=== PATIENT | female | born 1960 | race Caucasian/White ===

== ENCOUNTER 2020-09-01 14:43 | Outpatient (REF) | payer OTHER, SELFPAY ==
--- NOTE | 2020-09-01 13:45 | PAPFT_PTH ---
PATIENT: Marisa Huerta LOC: [facility] U#:[id number] AGE/SX: 60/F ROOM: RE09/01/[address]: Steph Snow : 1960 BED: DIS: 09/01/2020 SPEC #: [id number] RECD: 09/01/20 17:30 STATUS: MARIAHRogelio REKarla #: [id number] TAYLOR: 09/01/20 13:[address]: Steph Snow DEPT: [facility] Cytology RECD BY: Earnestine Nice ENTERED: 09/01/20 17:30 SP TYPE: PAPFT OTHR DR: Unknown,Unknown Tissues: 1 - CX/ENDOCX FOR PAP SMEARS Procedures: PAP THIN PREP/UVM Screening HPV DNA PROBE Comments: [id number]
== END 2020-09-01 14:44 | disposition home or self-care (01) ==
LOC: LBN 14:43
PROVIDERS: Visit Provider Obstetrics & Gynecology Gynecology
DX: R10.31 Right lower quadrant pain (principal); Z12.4 Encounter for screening for malignant neoplasm of cervix; Z11.51 Encounter for screening for human papillomavirus (HPV)
CPT/HCPCS: 88142; 87086; 87624

== ENCOUNTER 2020-09-26 04:32 | Outpatient (CLI) | payer OTHER, SELFPAY ==
--- NOTE | 2020-09-26 15:38 | DI.MAMMO_ITS ---
Exam(s) MAMMO SCREENING EXAM: MAMMO SCREENING CLINICAL HISTORY: screening, z12.39 TECHNIQUE: Mammograms were interpreted according to the usual protocol including computer analysis w [employer] CAD system, tomosynthesis and C-view imaging. COMPARISON: 2012 and 2014 from [facility]. FINDINGS: The breasts are composed of heterogeneously dense fibroglandular densities, Breast Density category C . No suspicious masses or suspicious microcalcifications are seen. No skin thickening or abnormal axillary lymph nodes are seen. There has been no significant change from prior exams. IMPRESSION: BI-RADS Category 1, Negative mammogram. Yearly screening mammography is recommended. Breast Density Category C, heterogeneously Dense. The mammogram demonstrates the patient's breast tissue is dense. Dense breast tissue is very common a nd is not abnormal but dense breast tissue can make it harder to find cancer on a mammogram. Also, de nse breast tissue may increase breast cancer risk. This information about the result of the mammogram report was provided to the patient to raise their awareness. Use this report when you speak with the patient about their risks for breast cancer, which includes their family history. At that time, you may recommend additional screening tests (Ultrasound or MRI) as they might be useful based on their r isk. A negative radiographic report should not delay biopsy if a dominant or clinically suspicious mass is present. Up to ten percent of cancers are not identified on mammography. A negative report may reinforce clinical impression. Adenosis and dense breasts may obscure an underlying neoplasm. False positive reports average 6 to 10%.
== END 2020-09-26 04:52 ==
PROVIDERS: Visit Provider Obstetrics & Gynecology Gynecology
DX: Z12.31 Encounter for screening mammogram for malignant neoplasm of breast (principal)
CPT/HCPCS: 77063; 77067

== ENCOUNTER 2021-05-05 18:01 | Outpatient (REF) | payer BC, SELFPAY | END 2021-05-05 18:02 | disposition home or self-care (01) | LOC: LBN 18:01 | PROVIDERS: Visit Provider Obstetrics & Gynecology | DX: R30.0 Dysuria (principal) | CPT/HCPCS: 87086 ==

== ENCOUNTER 2021-11-02 18:00 | Outpatient (REF) | payer BC, SELFPAY ==
[2021-11-02 19:19] LABS: Bacteria Few HPF (Negative); C & S Indicated? C&S Done As Ordered; Crystals Negative HPF (Negative); Epithelial Cells Few HPF (Negative); Mucus Negative (Negative); Other Cells Few Transitional (Negative); WBC >50 HPF (0-5)
== END 2021-11-02 18:01 | disposition home or self-care (01) ==
LOC: LBN 18:00
PROVIDERS: Visit Provider Physician Assistant Medical
DX: R30.9 Painful micturition, unspecified (principal)
CPT/HCPCS: 87077; 81015; 87086; 87186

== ENCOUNTER 2021-11-13 15:48 | Outpatient (REF) | payer BC, SELFPAY | END 2021-11-13 15:49 | disposition home or self-care (01) | LOC: LBN 15:48 | PROVIDERS: Visit Provider Obstetrics & Gynecology Gynecology | DX: R30.0 Dysuria (principal) | CPT/HCPCS: 87086 ==

== ENCOUNTER 2022-02-23 02:06 | Outpatient (CLI) | payer BC, SELFPAY ==
--- NOTE | 2022-02-23 07:45 | DI.MAMMO_ITS ---
Exam(s) MAMMO SCREENING EXAM: MAMMO SCREENING CLINICAL HISTORY: screening,z12.39. TECHNIQUE: Bilateral full field digital CC and MLO mammographic images were obtained with 3D tomosyn thesis and utilizing computer aided detection (CAD). COMPARISON: Prior mammograms were reviewed. FINDINGS: There has been no significant change in the appearance and distribution of the fibroglandular tissue. Asymmetric tissue in left breast is unchanged from prior studies. There are no new spiculated masses nor malignant appearing microcalcification groups. There is no significant architectural distortion nor skin thickening-retraction. IMPRESSION: No radiographic evidence of malignancy. BI-RADS Category 1 - Negative Breast Density - Category C - Heterogeneously dense Breast density Category C or D implies that the patient has dense breast tissue. Dense breast tissue can make it harder to find cancer on a mammogram. Dense breast tissue is also associated with an incr eased risk of breast cancer. This information about the result of the mammogram report was provided to the patient to raise their awareness. Use this report when you speak with the patient about their risks for breast cancer, which includes their family history. At that time, you may recommend additional screening tests (Ultrasoun d or MRI) as these tests may add significant information. A negative radiographic report should not delay biopsy if a dominant or clinically suspicious mass is present. Up to ten percent of cancers are not identified on mammography. A negative report may reinforce clinical impression. Adenosis and dense breasts may obscure an underlying neoplasm. False positive reports average 6 to 10%. Patient will receive a letter notifying them of these results.
== END 2022-02-23 02:26 ==
PROVIDERS: Visit Provider Obstetrics & Gynecology Gynecology
DX: Z12.31 Encounter for screening mammogram for malignant neoplasm of breast (principal); R92.8 Other abnormal and inconclusive findings on diagnostic imaging of breast
CPT/HCPCS: 77063; 77067

== ENCOUNTER 2022-12-01 02:23 | Outpatient (CLI) | payer BC, SELFPAY ==
[2022-12-01 09:33] LABS: Abs Immature Grans 0.03 10^3/uL (0.0-0.06); Absolute Eosinophil Count 0.06 10^3/uL (0.0-0.7); Absolute Lymphocyte Count 1.88 10^3/uL (1.2-3.4); Absolute Monocyte Count 0.53 10^3/uL (0.1-0.8); Absolute Neutrophil Count 4.37 10^3/uL (1.2-6.7); Basophils % 1.4; Eosinophils % 0.9; HCT 41.5 % (36.0-46.0); HGB 14.1 g/dL (11.2-15.7); Immature Grans % 0.4; MCH 31.5 pg (27.0-33.0); MCV 93 fL (80-95); MPV 9.7 fL (8.0-11.0); Monocytes % 7.6; Neutrophils % 62.7; Platelet Count 246 10^3/uL (130-400); RBC 4.47 10^6/uL (3.93-5.22); RDW 11.9 % (11.7-14.6); RDW-SD 40.8 fL; WBC 6.97 10^3/uL (4.4-10.8)
[2022-12-01 10:18] LABS: ALT 31 U/L (14-59); AST 19 U/L (15-37); Albumin 4.1 g/dL (3.4-5.0); Alkaline Phosphatase 91 U/L (46-116); Anion Gap 6.9 mmol/L (3-11); BUN 16 mg/dL (7-18); Bilirubin, Total 0.4 mg/dL (0.2-1.0); CO2 30.1 mmol/L (21.0-32.0); CREATININE 0.8 mg/dL (0.55-1.02); Calcium 9.7 mg/dL (8.5-10.1); Calculated LDL 102 mg/dL (<100); Chloride 104 mmol/L (98-107); Cholesterol 182 mg/dL (<200); Glucose 118 mg/dL (74-106); HDL Cholesterol 70 mg/dL (40-60); Potassium 3.7 mmol/L (3.5-5.1); Sodium 141 mmol/L (136-145); Total Protein 7.5 g/dL (6.4-8.2); Triglyceride 53 mg/dL (<150); Vitamin B12 313 pg/mL (193-986)
[2022-12-05 01:26] LABS: Lab Add On Test DONE
[2022-12-05 01:38] LABS: Hemoglobin A1C 5.3 % (<5.7)
== END 2022-12-01 02:24 | disposition home or self-care (01) ==
LOC: LBO 02:23
PROVIDERS: Student in an Organized Health Care Education/Training Program; Absent Provider Nurse Practitioner; PCP Nurse Practitioner; Referring Provider Nurse Practitioner; Visit Provider Nurse Practitioner
DX: R79.9 Abnormal finding of blood chemistry, unspecified (principal); Z13.220 Encounter for screening for lipoid disorders; E53.8 Deficiency of other specified B group vitamins; R73.09 Other abnormal glucose
CPT/HCPCS: 36415; 80053; 80061; 82607; 83036; 84443; 85025

== ENCOUNTER → 2022-12-14 07:26 | Outpatient (CLI) | payer BC, SELFPAY ==
--- NOTE | 2022-12-14 08:30 | DI.US_ITS ---
APPROVED REPORT EXAM: Comprehensive 2D, Doppler, and color-flow Echocardiogram Patient Location: Out-Patient Hydrotechnical Specialist: Juan Jeffers RDCS (AE) Indications: sharp CP intermittently Conclusion Normal left ventricular wall thickness and chamber size. Ejection fraction is 60 to 65%. Wall motio n is normal Normal right ventricular size and systolic function Both atria are normal in size There is no structural or hemodynamically significant valvular disease Wall motion Left Ventricle The left ventricle is normal size. Left ventricular systolic function is normal. The left ventricular ejection fraction is within the normal range. There is normal left ventricular wall thickness. There is normal LV segmental wall motion. There is no ventricular septal defect visualized. LVEF is 60-65% . Right Ventricle The right ventricle is normal size. The right ventricular systolic function is normal. The RVSP is 25 .1 mmHg. Atria The left atrium size is normal. The right atrium size is normal. Aortic Valve The aortic valve is normal in structure. Aortic valve is trileaflet. There is no aortic valvular sten osis. No aortic regurgitation is present. Mitral Valve The mitral valve is normal in structure. No evidence of mitral valve stenosis. There is no mitral kevin ve regurgitation noted. Tricuspid Valve The tricuspid valve is normal in structure. There is no tricuspid valve stenosis. There is no tricusp id valve regurgitation noted. Pulmonic Valve The pulmonary valve is normal in structure. There is no pulmonic valvular stenosis. There is no pulmo hank valvular regurgitation. Great Vessels The aortic root is normal in size. The ascending aorta is normal Aortic arch is normal in caliber. IV C is normal in size and collapses >50% with inspiration. Pericardium There is no pericardial effusion. 2D Dimensions IVSD d PLAX 0.93 cm F: 0.6-1.0 Ao Root d 3.14 cm F: 2.7 - 3.3 LVPW d PLAX 0.86 cm F: 0.6 - 1.0 Ao Asc Diam d 3.28 cm F: 2.3 - 3.1 LVID d PLAX 4.42 cm F: 3.8 - 5.2 LVDs 2.87 cm F: 2.2 - 3.5 LV EF Teichholz 64.5 % FS 35.03 % LV EDV (Teich) 88.5 mL LV ESV (Teich) 31.4 mL Stroke Vol Index (Teich) 35.02 M-Mode TAPSE 2.73 cm (M/F) >1.7 LV Volumes - Method of Disks (Schultz's) Single Plane 2D LV Volumes Biplane 2D LV Volumes LV EDV A4C 57.3 mL LV EDV BP 66.11 mL F: 46 - 106 LV ESV A4C 22.6 mL LV ESV BP 23.4 mL LVEF(%) A4C 60.6 % LVEF(%) BP 64.63 % F: 54 - 74 LV EDV A2C 66.0 mL LV EDV BP Index 40.55 mL/m2 F: 29 - 61 LV ESV A2C 23.6 mL SV BP LVEF(%) A2C 64.2 % SV Index LA Volume LA Length A4C 3.8 cm LA Length A2C LA Area A4C s 9.04 cm2 LA Area A2C s LA Vol A4C A-L 18.13 mL LA Vol A2C A-L LA Vol Biplane A-L LA Vol A4C MOD 17.2 mL LA Vol A2C MOD LA Vol BP MOD RA Volume RA Area A4C 6.3 cm2 RA ESV A4C (A-L) 10.9mL RA Vol/BSA A4C A-L RA Length A4C 3.1 cm RA ESV A4C (MOD) 10.5mL LV Diastology MV E' medial 0.105 (>0.07 m/s) MV E Vmax 0.87 (0.4-1.3 m/s) MV E/E' MED 8.28 (<14) MV A Vmax 0.90 (0.4-1.3 m/s) MV E' lateral 0.101 (>0.1 m/s) E/A Ratio 1.0 MV E/E' LAT 8.59 (<14) MV E' Average 0.103 m/s MV E/E'(average) 8.44 Aortic Valve AoV Vmax 1.56 m/s LVOT Vmax 1.22 m/s AoV Peak Grad 9.7 mmHg LVOT Peak Grad 5.9 mmHg AoV Area (Vmax) 2.36 cm2 LVOT VTI 0.250 m AoV VTI 0.339 m LVOT Mean Grad 3.3 mmHg AoV Mean William. 1.10 m/s LVOT SV 75.48 mL AoV Mean Grad 5.6 mmHg LVOT Diam s 1.95 cm AoV Area (VTI) 2.22 cm2 Velocity Ratio 0.78 Mitral Valve MV DT 213 (160-240 msec) Pulmonary Valve PV Vmax 1.26 (0.5-1.5 m/s) RVOT Vmax 0.97 m/s PV Peak Grad 6.4 mmHg RVOT Peak Gr. 3.7 mmHg PV Mean William 0.88 m/s RVOT VTI 0.197 m PV Mean Grad 3.5 mmHg RVOT Mean Gr. 1.6 mmHg Tricuspid Valve RA Pressure 3.00 mmHg TR Vmax 2.35 m/s TR Peak Grad 22.0 mmHg RVSP (TR) 25.1 mmHg
== END ==
PROVIDERS: PCP Nurse Practitioner; Visit Provider Nurse Practitioner
DX: R01.1 Cardiac murmur, unspecified (principal); R07.9 Chest pain, unspecified
CPT/HCPCS: 93306

== ENCOUNTER 2023-01-11 14:35 | Outpatient (CLI) | payer BC, SELFPAY ==
--- NOTE | 2023-01-11 14:30 | RT.EKG_ITS ---
APPROVED REPORT Exam: Resting ECG Reason for Exam: chest pain on left side Patient Location: O HR:52 bpm ECG Measurements Heart Rate 52 AXIS NM 156 P 36 QRSd 86 QRS 61 QT 444 T 59 QTc 413 Conclusion Sinus rhythm...normal P axis, V-rate 50- 99 Normal Electrocardiogram
== END 2023-01-11 14:36 | disposition home or self-care (01) ==
LOC: DI.KIM 14:35
PROVIDERS: PCP Nurse Practitioner; Visit Provider Nurse Practitioner
DX: R07.9 Chest pain, unspecified (principal)
CPT/HCPCS: 93010

== ENCOUNTER 2023-03-31 10:56 | Outpatient (RCR) | payer BC, SELFPAY ==
--- NOTE | 2023-03-31 11:00 | HOLTER_ITS ---
APPROVED REPORT Conclusion This is a 48-hour Holter monitor Rhythm throughout was sinus with an average heart rate 65. Minimum was 47, maximum 108 There were occasional ventricular ectopic beats There were very rare atrial premature beats There was no atrial fibrillation, no high-grade AV blocks, no pauses greater than 3 seconds Reported symptoms could not be reliably correlated to any dysrhythmia
== END 2023-04-21 23:59 | disposition home or self-care (01) ==
LOC: CARDOPNVT 10:56
PROVIDERS: PCP Nurse Practitioner; Visit Provider Internal Medicine Cardiovascular Disease
DX: R00.2 Palpitations (principal)
CPT/HCPCS: 93225; 93226

== ENCOUNTER 2023-05-05 08:18 | Emergency (ER) | payer BC, SELFPAY ==
[2023-05-05] MEDS: Ondansetron 4 MG/2 ML VIAL (09:20)
--- NOTE | 2023-05-05 09:30 | DI.RAD_ITS ---
Exam(s) XR CHEST 2V PA LATERAL EXAM: XR CHEST 2V PA LATERAL CLINICAL HISTORY: dizziness. TECHNIQUE: 2D digital imaging was performed. COMPARISON: No exams were available for comparison FINDINGS: 2 views: Heart size is normal. The mediastinum is not widened. Lungs are clear. No infiltrates nor pleural effusions. IMPRESSION: No acute pulmonary findings. DATA REPOSITORY: RADIATION DOSE DELIVERED:
--- NOTE | 2023-05-05 09:34 | ED.GENADUL_ITS ---
Discharge Plan Disposition Patient Disposition: Home Discharge Details Clinical Impression: Hypokalemia due to excessive gastrointestinal loss of potassium, Viral gastroenteritis Primary Care Provider: Brenda Estrada ED Provider: Leonora García Home Meds and New Rx's Prescriptions: No Action omeprazole 10 mg capsule,delayed release(DR/EC) 10 mg PO PRN naproxen 250 mg tablet 250 mg PO BID PRN estradiol 0.01 % (0.1 mg/gram) cream 1 g vaginal .COMPLEX Qty: 42.5 6RF Rx Instructions: 1 g vaginal daily for 2 weeks then twice weekly; clobetasol 0.05 % ointment 1 applic topical BID Qty: 45 6RF Rx Instructions: tiny amount to vulva twice daily x1 month,daily for 1 month then twice weekly metoprolol succinate 25 mg tablet extended release 24 hr 25 mg PO QPM Qty: 30 3RF Discharge Instructions Instructions: Hypokalemia (ED), Gastroenteritis (ED) Additional Instructions: Please stay well-hydrated, drinking plenty of electrolyte rich fluids. Your potassium was slightly low today, I encourage you to eat potassium rich foods such as bananas, oranges, and potatoes. Get plenty of rest. HPI General Date/Time Provider Initiated Documentation: 05/05/23 09:33 . HPI Narrative: Marisa is a 63 year old female who presents to the emergency dept today accompanied by her for evaluation of feeling unwell. She reports symptoms started yesterday morning with lightheadedness (described as dizziness, but no reported vertigo) accompanied by chills, congestion, sneezing, mild cough, and multiple episodes of vomiting/diarrhea. Some L sided abdominal pain yesterday. She reports she was unable to hold down PO yesterday, was unable to take her nightly metoprolol. She woke up at 1 am with a severe generalized headache accompanied by tingling on the L side of her body (which has since resolved). She asked her to bring her some Tylenol and was able to ambulate to the restroom; no unilateral weakness noted. Denies fever, vision changes, chest pain, shortness of breath, current abdominal pain, blood in stool or emesis, or change in urine output. She has been taking metoprolol qHS since Apr 12 for new diagnosis of HTN. No known HLD, diabetes, heart disease, or tobacco use. Related Data Home Medications Medication Instructions Recorded Confirmed omeprazole 10 mg capsule,delayed 10 mg PO PRN 11/13/21 05/05/23 release naproxen 250 mg tablet 250 mg PO BID PRN 01/11/23 05/05/23 clobetasol 0.05 % topical ointment 1 applic topical BID vulvar lichen 04/12/23 05/05/23 sclerosis #45 grams estradiol 0.01% (0.1 mg/gram) 1 g vaginal .COMPLEX #42.5 grams 04/12/23 05/05/23 vaginal cream metoprolol succinate 25 mg 25 mg PO QPM #30 tabs 04/12/23 05/05/23 tablet,extended release 24 hr Previous Rx's Medication Instructions Recorded clobetasol 0.05 % topical ointment 1 applic topical BID 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 #45 grams estradiol 0.01% (0.1 mg/gram) 1 g vaginal .COMPLEX #42.5 grams 04/12/23 vaginal cream metoprolol succinate 25 mg 25 mg PO QPM #30 tabs 04/12/23 tablet,extended release 24 hr Allergies Allergy/AdvReac Type Severity Reaction Status Date / Time metronidazole [From Metrogel] AdvReac Hives Verified 05/05/23 10:32 Review of Systems Narrative: see HPI Exam Const General: cooperative, comfortable and no acute distress Nutritional Appearance: average body habitus Orientation: alert and awake HENMT Head: normal to inspection Ears: hearing grossly normal bilaterally General nose exam: external nose normal Face and sinus: dry mucous membranes (mild) Mouth: tongue normal and oropharynx normal Throat: uvula midline Eyes General: appearance normal, both eyes and all related structures Eyelids: eyelids normal Pupils: PERRL EOM: EOM intact bilaterally Neck Neck: normal visual inspection and no lymphadenopathy Resp Effort & Inspection: normal respiratory effort and able to speak in complete sentences Auscultation: clear to auscultation bilaterally Cardio Rate: regular rate Rhythm: regular rhythm GI Inspection: normal to inspection, no abdominal wall ecchymosis and non-distended Palpation: soft and not rigid Auscultation: normal bowel sounds Neuro Cranial Nerves: CN's II-XI intact bilaterally Speech: speech normal Gait: normal gait Motor: muscle tone normal throughout and strength 5/5 throughout Medical Decision Making Marisa is a 63 year old female who presents to the emergency dept today accompanied by her for evaluation of feeling unwell. She reports symptoms started yesterday morning with lightheadedness (described as dizziness, but no reported vertigo) accompanied by chills, congestion, sneezing, mild cough, and multiple episodes of vomiting/diarrhea. Some L sided abdominal pain yesterday. She reports she was unable to hold down PO yesterday, was unable to take her nightly metoprolol. She woke up at 1 am with a severe generalized headache accompanied by tingling on the L side of her body (which has since resolved). She asked her to bring her some Tylenol and was able to ambulate to the restroom; no unilateral weakness noted. Denies fever, vision changes, chest pain, shortness of breath, current abdominal pain, blood in stool or emesis, or change in urine output. She has been taking metoprolol qHS since Apr 12 for new diagnosis of HTN. No known HLD, diabetes, heart disease, or tobacco use. Physical exam reassuring. Pt is alert and oriented. computer operator II-XII intact as tested. Tacky MM. PERRL, EOMs intact. No cervical lymphadenopathy. Easy work of breathing, lung sounds clear bilaterally. Normal heart sounds. Abdomen soft, nondistended, nontender to palpation with normoactive BS. Normal gait, some lightheadedness with standing. 5/5 muscle strength to upper and lower extremities bilaterally. D/dx includes but is not limited to: viral syndrome, dehydration, electrolyte imbalance, cardiac arrhythmia, intracranial hemorrhage less likely but of concern due to sudden onset of headache in age >55. I independently interpreted the following tests: EKG shows normal sinus rhythm, rate 55. PVC noted. No changes consistent with acute ischemia. CBC reassuring, only mild leukocytosis with slightly elevated white cell count 11.15. BMP reassuring, slightly elevated creatinine to BUN ratio with creatinine 0.91 and BUN 18. Potassium slightly low at 3.3. Serial troponins negative, less than 50. Flu/COVID/RSV all negative. Head CT reassuring, no acute findings noted by radiologist While in the emergency dept, Marisa received 1L IV Normal saline, 4 mg Zofran for nausea, and 25 mg metoprolol tartrate (substitute for PM metoprolol ER 25 mg, after discussion with Shire[facility] pharmacist). Her blood pressure decreased to 160s systolic after receiving metoprolol, with full resolution of nausea. Potassium p.o. given. Marisa has been able to ambulate throughout the department without difficulty, says she only has mild lightheadedness with standing. Workup today very reassuring. Likely etiology viral illness with resultant dehydration. Recommend good hydration at home, electrolytes, and advancing diet as tolerated. Reviewed red flags indicate need return to emergency care. Advise follow-up with PCP to discuss blood pressure. Imaging Data Radiologic Study: My impression: No obvious infiltrate or cardiomegaly Radiologist's impression: Exam(s) XR CHEST 2V PA LATERAL EXAM: XR CHEST 2V PA LATERAL CLINICAL HISTORY: dizziness. TECHNIQUE: 2D digital imaging was performed. COMPARISON: No exams were available for comparison FINDINGS: 2 views: Heart size is normal. The mediastinum is not widened. Lungs are clear. No infiltrates nor pleural effusions. IMPRESSION: No acute pulmonary findings. Radiologic Study #2: My impression: No acute intracranial hemorrhage noted Radiologist's impression: This report is currently processing and HAS NOT BEEN OFFICIALLY SIGNED BY THE PHYSICIAN - ESTIMATED TIME OF APPROVAL IS 05/05/2023 13:57. Exam(s) CT HEAD WO EXAM: CT HEAD WO CLINICAL HISTORY: dizziness, vomiting, headache. TECHNIQUE: Imaging Protocol: Axial computed tomography images with coronal and sagittal reformatted images were created and reviewed COMPARISON: CT CT HEAD WO from 03/18/2023 FINDINGS: There are no skull fractures. There is no fluid in the visualized paranasal sinuses. There is no evidence of intracranial hemorrhage, mass effect, or shift of midline structures. There are no extra-axial fluid collections. The ventricles are not enlarged or shifted and there is no blood within the ventricular system nor within the basal cisterns. IMPRESSION: No acute intracranial findings on this noninfused CT scan of the brain. No significant change compared to the recent CT scan of 03/18/2023. Lab Data Labs: Laboratory Tests Range/Units 05/05/23 05/05/23 08:55 11:56 WBC (4.4-10.8) 10^3/uL 11.15 H RBC (3.93-5.22) 10^6/uL 4.64 Hgb (11.2-15.7) g/dL 14.8 Hct (36.0-46.0) % 42.4 MCV (80-95) fL 91 MCH (27.0-33.0) pg 31.9 MCHC (32.0-36.0) % 34.9 RDW (11.7-14.6) % 11.9 Plt Count (130-400) 10^3/uL 240 MPV (8.0-11.0) fL 10.4 Immature Gran % 0.6 Neutrophils % 81.0 Lymphocytes % 12.6 Monocytes % 5.2 Eosinophils % 0.2 Basophils % 0.4 Nucleated RBC % (0.0-0.3) % 0.0 Absolute Neutrophils (1.2-6.7) 10^3/uL 9.02 H Absolute Lymphocytes (1.2-3.4) 10^3/uL 1.41 Absolute Monocytes (0.1-0.8) 10^3/uL 0.58 Absolute Eosinophils (0.0-0.7) 10^3/uL 0.02 Absolute Basophils (0.0-0.2) 10^3/uL 0.05 Sodium (136-145) mmol/L 144 Potassium (3.5-5.1) mmol/L 3.3 L Chloride (98-107) mmol/L 105 Carbon Dioxide (21.0-32.0) mmol/L 27.5 Anion Gap (3-11) mmol/L 11.5 H BUN (7-18) mg/dL 18 Creatinine (0.55-1.02) mg/dL 0.9 Est GFR (CKD-EPI 2020) (mL/min/1.73m2) 72.73 Glucose (74-106) mg/dL 158 H Calcium (8.5-10.1) mg/dL 9.5 Magnesium (1.8-2.4) mg/dL 1.9 Troponin I (< or =60) ng/L < 50 < 50 COVID-19 Source Nasopharynx SARS-CoV-2 (PCR) (Negative) Negative Influenza Type A (PCR) (Negative) Negative Influenza Type B (PCR) (Negative) Negative RSV (PCR) (Negative) Negative Quality:SDOH Health Related Social Needs: No Data to Display PFSH All Active Problems (Updated 05/05/23 @ 13:26 by Leonora Mcclure) Viral gastroenteritis (Acute) Hypokalemia due to excessive gastrointestinal loss of potassium (Acute) Systolic murmur (Acute) Dysuria (Acute) UTI (urinary tract infection) (Acute) . EColi. Rx Nitrofurantoin Rib pain on left side (Acute) Vaginal dryness (Acute) 05/23/19. Unclear if sx 2/2 LS or primary menopausal vaginal atrophy 09/2020. Rx for vaginal E2 cream. History of female sterilization (Chronic) Lichen sclerosus et atrophicus of the vulva (Acute) 05/2019. Rx with clobetasol. Family History (Updated 10/22/22 @ 14:34 by Sindhu Mccarthy) Uncle Cancer Aunt Cancer Paternal Grandfather Hypertension Social History (Updated 12/13/22 @ 18:15 by Jessica Londono LPN) Smoking/Tobacco Use Status: Never Second Hand Exposure: No Smoking risk assessment performed?: Yes Alcohol Intake: current Alcohol Intake frequency: holidays/special occasions only Details: Monthly or less Drug use: Occasionally Substance use type: marijuana Details: CBD products -3 times a week. Smokes THC 3xweek Adopted: No Caregiver/Support person: No Foster care: No Household members: spouse, children and other Details: Lakesha. 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 [employer] Pets and animals: Yes (1) Pets and animals: dog(s) Sexually active: Yes Do you think of yourself as: straight/heterosexual Current gender identity: female What is your relationship status?: How often do you talk on the phone with friends or family?: three or more times per week How often do you get together with friends or relatives?: twice per week Do you belong to any clubs or organized social groups?: no Panel score (0-1 are the most socially isolated patients): 2 What type of physical activity do you participate in: walking Duration: 30-45 minutes/day Frequency: 5-6 times per week Debbie/Restorationism: None Special debbie needs: No Seatbelt use: always Drive intox or ride w/intox funeral limousine driver: No Working smoke detector in home: Yes Fire extinguisher in home: Yes Carbon monox detector in home: Yes Do you feel safe at home: Yes Do you feel safe in your relationship?: Yes Female Reproductive History Menstrual control method: permanent sterilization Menopause type: natural Date of menopause: 05/22/17 History History 2 Para 2 Hx # Term Pregnancies Multiple births Hx # Pregnancies Ectopic pregnancies AB induced Hx Number of Living Children AB spontaneous
--- NOTE | 2023-05-05 09:45 | RT.EKG_ITS ---
APPROVED REPORT Exam: Resting ECG Reason for Exam: Dizziness Patient Location: E HR:55 bpm ECG Measurements Heart Rate 55 AXIS [place] 146 P 63 QRSd 94 QRS 73 QT 469 T 66 QTc 439 Conclusion Sinus bradycardia...rate< 60 Ventricular premature complex...V complex w/ short R-R interval Probable left ventricular hypertrophy...multiple LVH criteria sinus rhtyhm, normal axis, normal intevals, PVC, LVH
--- NOTE | 2023-05-05 10:24 | NUR.NOTE ---
Nursing Note: please see downtime paper work for full trg.
[2023-05-05] MEDS: Metoprolol 25 MG TAB PO (10:28)
[2023-05-05 10:30] VITALS: RESP 16
[2023-05-05 11:37] LABS: BUN 18 mg/dL (7-18); CO2 27.5 mmol/L (21.0-32.0); CREATININE 0.9 mg/dL (0.55-1.02); Calcium 9.5 mg/dL (8.5-10.1); Estimated GFR 72.73 (mL/min/1.73m2); Glucose 158 mg/dL (74-106); Magnesium 1.9 mg/dL (1.8-2.4); Troponin I < 50 ng/L (< or =60)
[2023-05-05 11:38] LABS: Anion Gap 11.5 mmol/L (3-11); Chloride 105 mmol/L (98-107); Potassium 3.3 mmol/L (3.5-5.1); Sodium 144 mmol/L (136-145)
[2023-05-05 11:39] LABS: HGB 14.8 g/dL (11.2-15.7); RBC 4.64 10^6/uL (3.93-5.22); WBC 11.15 10^3/uL (4.4-10.8)
[2023-05-05 11:40] LABS: Abs Immature Grans 0.07 10^3/uL (0.0-0.06); Absolute Basophil Count 0.05 10^3/uL (0.0-0.2); Absolute Eosinophil Count 0.02 10^3/uL (0.0-0.7); Absolute Lymphocyte Count 1.41 10^3/uL (1.2-3.4); Absolute Monocyte Count 0.58 10^3/uL (0.1-0.8); Absolute Neutrophil Count 9.02 10^3/uL (1.2-6.7); Basophils % 0.4; Eosinophils % 0.2; HCT 42.4 % (36.0-46.0); Immature Grans % 0.6; Lymphocytes % 12.6; MCH 31.9 pg (27.0-33.0); MCHC 34.9 % (32.0-36.0); MCV 91 fL (80-95); MPV 10.4 fL (8.0-11.0); Monocytes % 5.2; Platelet Count 240 10^3/uL (130-400); RDW 11.9 % (11.7-14.6); RDW-SD 39.8 fL
[2023-05-05 12:20] LABS: Troponin I < 50 ng/L (< or =60)
--- NOTE | 2023-05-05 12:30 | DI.CT_ITS ---
Exam(s) CT HEAD WO EXAM: CT HEAD WO CLINICAL HISTORY: dizziness, vomiting, headache. TECHNIQUE: Imaging Protocol: Axial computed tomography images with coronal and sagittal reformatted images were created and reviewed COMPARISON: CT CT HEAD WO from 03/18/2023 FINDINGS: There are no skull fractures. There is no fluid in the visualized paranasal sinuses. There is no evidence of intracranial hemorrhage, mass effect, or shift of midline structures. There are no extra-axial fluid collections. The ventricles are not enlarged or shifted and there is no blo od within the ventricular system nor within the basal cisterns. IMPRESSION: No acute intracranial findings on this noninfused CT scan of the brain. No significant change compared to the recent CT scan of 03/18/2023. RADIATION DOSE DELIVERED: Total DLP DATA REPOSITORY: All CT scans at this facility are submitted to the National Radiology Data Registry (NRDR) Dose Index Registry (DIR) with the [employer] (ACR). RADIATION OPTIMIZATION: All CT scans at this facility use at least one of these dose optimization te chniques: automated exposure control; mA and/or kV adjustment per patient size (includes targeted exa ms where dose is matched to clinical indication); or iterative reconstruction.
[2023-05-05 12:41] LABS: COVID-19 PCR Negative (Negative); Influenza A PCR Negative (Negative); Influenza B PCR Negative (Negative); RSV PCR Negative (Negative)
[2023-05-05 12:44] LABS: Source Nasopharynx
[2023-05-05 14:09] VITALS: BP 152/57; BP 157/82; BP 160/74; PULSE 46; PULSE 47; PULSE 58
[2023-05-05] MEDS: Potassium Bicarbonate/Cit AC 25 MEQ TABLET.EFF PO (14:24)
--- NOTE | 2023-05-10 09:42 | NUR.NOTE ---
Accessed pt chart to reconcile EKG orders to EKG's in [employer]. Nursing Note:
== END 2023-05-05 14:18 | disposition home or self-care (01) ==
PROVIDERS: Emergency Provider Nurse Practitioner Family; PCP Nurse Practitioner
DX: A08.4 Viral intestinal infection, unspecified (principal); E87.6 Hypokalemia; I10 Essential (primary) hypertension
CPT/HCPCS: 80048; 87637; 93005; 99285; 70450; 71046; 83735; 84484; 85025; 93010; 99284; J2405

== ENCOUNTER 2023-05-19 05:14 | Outpatient (CLI) | payer BC, SELFPAY ==
[2023-05-19 17:06] LABS: Potassium 3.5 mmol/L (3.5-5.1)
== END 2023-05-19 05:15 | disposition home or self-care (01) ==
LOC: LBO 05:14
PROVIDERS: PCP Nurse Practitioner; Visit Provider Nurse Practitioner
DX: E87.6 Hypokalemia (principal)
CPT/HCPCS: 36415; 84132

== ENCOUNTER 2023-11-04 08:39 | Outpatient (CLI) | payer BC, SELFPAY ==
--- NOTE | 2023-11-04 08:30 | DI.RAD_ITS ---
Exam(s) XR CERVICAL SPINE COMP 4-5V EXAM: XR CERVICAL SPINE COMP 4-5V CLINICAL HISTORY: right sided neck pain M54.2 CERVICALGIA. TECHNIQUE: 2D digital imaging was performed. Five views were performed. COMPARISON: No exams were available for comparison FINDINGS: BONES: No fracture or destructive lesion. Vertebral bodies are unremarkable. Facet degenerative edna nges noted throughout. DISKS: Narrowing of the disc spaces and endplate osteophytes from C4-5 through C6-7. Left-sided neur al foraminal narrowing at C4-5 and C5-6. ALIGNMENT: Cervical spinal alignment is within normal limits. The odontoid and atlantoaxial articulat ions are normal. SOFT TISSUE: Normal. The lung apices are clear. IMPRESSION: Degenerative changes from C4-5 through C6-7. DATA REPOSITORY: RADIATION DOSE DELIVERED:
== END 2023-11-04 08:59 ==
LOC: DI 08:42
PROVIDERS: PCP Nurse Practitioner; Visit Provider Nurse Practitioner
DX: M50.021 Cervical disc disorder at C4-C5 level with myelopathy (principal)
CPT/HCPCS: 72050

== ENCOUNTER 2023-12-26 08:30 | Day surgery (SDC) | payer BC, SELFPAY ==
--- NOTE | 2023-12-25 07:36 | W.PM.DSUDISC ---
Date of service: 12/26/23 Time of Service: 10:21 Discharge Plan Disposition Patient Disposition: Home Condition: Good Discharge Details Reason For Visit: EGD Attending Provider: Kevin Alvarado Primary Care Provider: Brenda Estrada Home Meds and New Rx's Prescriptions: Continued naproxen 250 mg tablet 250 mg PO BID PRN losartan 50 mg tablet 50 mg PO DAILY Qty: 90 3RF estradiol 0.01 % (0.1 mg/gram) cream 1 g vaginal .COMPLEX Qty: 42.5 6RF Rx Instructions: 1 g vaginal daily for 2 weeks then twice weekly; clobetasol 0.05 % ointment 1 applic topical BID Qty: 45 6RF Rx Instructions: tiny amount to vulva twice daily x1 month,daily for 1 month then twice weekly metoprolol succinate 25 mg tablet extended release 24 hr 25 mg PO QPM Qty: 90 3RF omeprazole 20 mg capsule,delayed release(DR/EC) 20 mg PO BID PRN (Reason: reflux) Qty: 60 1RF Discharge Instructions Additional Instructions: Marisa is very nice seeing you today, and I hope you are comfortable during the procedure. Reassuringly, everything looks pretty good. You have a little bit of inflammation around your GE junction, that is the part where you are swallowing pipe Down onto your stomach. This is typically seen in patients with longstanding gastroesophageal reflux disease. Otherwise, your esophagus, stomach, and the first part of your duodenum all appears normal. I did not see any signs of narrowing, or any obstruction anywhere along the length of your upper GI tract. I did, however, do multiple biopsies in various places to see if that can help explain any of your symptoms. Those biopsies will take about a week or 2 to get the results from. If they are all normal, then my next plan would be to do a swallowing test, where they see how the function of your esophagus works during the course of the swallowing procedure. Once I have the results of the biopsy analysis, I will be in touch. 1. If tolerated, consume a soft, low fiber diet for 1-2 days. [address] Do not drive, drink alcohol, operate machinery, make critical decisions, or do activities that require coordination or balance for 24 hours. 3. You may experience a sore throat for 24 to 48 hours. You may use throat lozenges or gargle with warm salt water to relieve the discomfort. 4. Because air was put into your stomach during the procedure, you may experience some belching. 5. Go directly to the emergency room if you notice any of the following: Develop chills (warm to touch), or if you have a thermometer and your temperature is above 101 Difficulty breathing or difficultly swallowing Persistent vomiting Severe abdominal pain, other than gas cramps Severe chest pain Black, tarry stools Any bleeding ? exceeding one tablespoon 6. Call your physician if the site where your intravenous was started becomes red, swollen, painful, and warm to touch. 7. Your physician has reviewed your pre-procedure medications. Please continue to take those medications as previously ordered. You will be given specific information/education regarding any changes to your medications before leaving. Activity:: Activity as Tolerated Diet:: As Tolerated Discharge Orders Discharge Orders: Discharge Order (Routine); Ordered 12/25/23 Ordered By: Kevin Alvarado DS: Diagnosis Discharge Diagnosis (1) Dysphagia: Status: Acute Asessment and Plan: Follow-up on biopsy results
--- NOTE | 2023-12-25 07:37 | W.PM.ENDDOP ---
Date of service: 12/26/23 Time of Service: Endoscopy Report DATE OF PROCEDURE: 12/26/23 PRE-OP DIAGNOSIS: dysphagia POST-OP DIAGNOSIS: other (Normal-appearing EGD) PROCEDURE: EGD with biopsies SURGEON: Kevin Alvarado ANESTHESIA TYPE: General:No Airway ESTIMATED BLOOD LOSS: 10 PATHOLOGY: other (Random biopsies of gastric antrum and body to rule out Helicobacter pylori, biopsies of GE junction, biopsies of esophagus) COMPLICATIONS: None DISPOSITION: same day INDICATIONS: Marisa is a 63 year old woman with dysphagia PROCEDURE START TIME: : PROCEDURE END TIME: FINDINGS: Mild irregularity of the GE junction at 38 cm from the incisors; otherwise normal-appearing EGD PROCEDURE DESCRIPTION: After the initiation of anesthesia, and with the assistance of a bite block, I advanced a standard gastroscope through the mouth past the hypopharynx and into the esophagus.? Under the direct vision of the scope, I advanced down the esophagus towards the stomach.? The upper and mid portions of the esophagus were totally normal. There was no evidence of any esophageal inlet patches, strictures, webs, or diverticuli. Lower esophagus was mostly normal as well. There was some very mild irregularity of the Z-line, less than 1 cm in length. Narrowband imaging was used throughout this analysis to assist with visualization. 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 Therefore, I did perform some cold forceps biopsies of the area. There was minimal bleeding from the biopsy sites. I advanced down into the stomach with ease and insufflated into the rugae were obliterated. I performed retroflexion. I did not see any signs of any hiatal hernias. There was no evidence of any active gastritis. I advanced down around the incisura angularis towards the pylorus. This all appeared normal. I advanced through the pylorus down into the duodenum. The duodenal villi were obvious and there were no clear abnormalities in the area. I was able to advance down to the second portion of the duodenum with ease. There is no inflammation, ulceration, or any active signs of inflammatory diseases. I then brought the camera back up into the stomach proper. I performed some nondirected biopsies using cold forceps of the gastric antrum and body to rule out Helicobacter pylori. I then emptied the stomach and brought the camera back up into the esophagus. Given her dysphagia, I did perform some random biopsies along the length of the esophagus without any difficulty. I did not see any other discrete abnormalities along the length of the esophagus as I remove the camera
[2023-12-26 08:59] VITALS: BP 161/88; PULSE 50; RESP 16; TEMP 36.6; O2SAT 98
[2023-12-26] MEDS: Lactated Ringers 500 ML 30 ML IV (09:20)
[2023-12-26] MEDS: Lactated Ringers 1,000 ML 80 ML IV (09:20)
--- NOTE | 2023-12-26 09:35 | ANES.PREOP_ITS ---
General Info Date of Service Date Performed: 12/26/23 Height: 5 ft 3 in Weight: 61.7 kg Body Mass Index (BMI): 24.0 Surgical Procedure: Operation Date: 12/26/23 09:50 Proposed Procedure Side Surgeon p Gastroscopy Kevin Alvarado MD Meds Allergies and Home Medications Allergies Allergy/AdvReac Type Severity Reaction Status Date / Time metronidazole (From Metrogel) AdvReac Hives Verified 12/26/23 08:54 Home Medication ?Medication ?Instructions ?Recorded naproxen 250 mg tablet 250 mg PO BID PRN 01/11/23 clobetasol 0.05 % topical ointment 1 applic topical BID 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 #45 grams estradiol 0.01% (0.1 mg/gram) 1 g vaginal .COMPLEX #42.5 grams 04/12/23 vaginal cream losartan 50 mg tablet 50 mg PO DAILY #90 tabs 05/24/23 metoprolol succinate 25 mg 25 mg PO QPM #90 tabs 06/06/23 tablet,extended release 24 hr omeprazole 20 mg capsule,delayed 20 mg PO BID PRN reflux #60 caps 12/20/23 release Current Visit Medications: Current Medications Generic Name Dose Route Start Last Admin Trade Name Freq PRN Reason Stop Dose Admin Ringer's Solution 1,000 mls @ 80 mls/hr 12/26/23 06:00 12/26/23 09:20 IV 12/26/23 23:59 80 mls/hr INFUSION JESSIE Administration IV Miscellaneous Supplies 1 each 12/26/23 06:00 Iv Access IV 12/26/23 23:59 DIRECTED JESSIE Ondansetron HCl 4 mg 12/25/23 07:38 Ondansetron 4 Mg/2 Ml Vial IVP 01/24/24 07:37 Q4H PRN PRN Nausea / Vomiting Sodium Chloride 0 ml 12/26/23 06:00 Normal Saline Flush 10 Ml Syr IV 12/26/23 23:59 PRN PRN Sodium Chloride 0 ml 12/26/23 06:00 Normal Saline 10 Ml Vial IJ 12/26/23 23:59 DIRECTED PRN Sterile Water 0 ml 12/26/23 06:00 Water,Injection,Sterile 10 Ml Vial IJ 12/26/23 23:59 DIRECTED PRN PFSH Active Problems Active Problems: Problem Status Onset Code Dysphagia Acute R13.10 Acid reflux Chronic K21.9 Systolic murmur Acute R01.1 Dysuria Acute R30.0 UTI (urinary tract infection) Acute N39.0 Rib pain on left side Acute R07.81 Vaginal dryness Acute N89.8 History of female sterilization Chronic Z98.890 Lichen sclerosus et atrophicus of the vulva Acute N90.4 Medical History Medical History HTN (hypertension) Tobacco Smoking/Tobacco Use Status: Never Second hand exposure: No Alcohol Alcohol Intake: current Alcohol intake frequency: holidays/special occasions only Details: Monthly or less Substance Use Substance use: Occasionally Substance use type: marijuana Details: CBD products -3 times a week. Smokes THC 3xweek Prental History History 2 Para 2 Hx # Term Pregnancies Multiple births Hx # Pregnancies Ectopic pregnancies AB induced Hx Number of Living Children AB spontaneous Vital Signs and Lab Results Vital Signs Most Recent Vital Signs in EMR: Most Recent Vital Signs Temp Pulse Resp BP Pulse Ox 36.6 C 50 L 16 161/88 H 98 12/26/23 08:59 12/26/23 08:59 12/26/23 08:59 12/26/23 08:59 12/26/23 08:59 Lab Results Blood Type / Crossmatch: No Data to Display Complete Blood Count: No Data to Display Complete Metabolic Panel: No Data to Display Liver Function Panel: No Data to Display Coagulation Panel: No Data to Display Cardiac Panel: 2 No Data to Display Arterial Blood Gas: No Data to Display Venous Blood Gas: No Data to Display Pancreas Panel: No Data to Display Thyroid Panel: No Data to Display Infectious Disease: No Data to Display Blood Cultures: No Data to Display Toxicology Panel: No Data to Display Imaging and Studies Imaging and Studies Study information below may be from another EMR and interpreted by another provider. Please see original notes in EMR for more complete details. EKG Summary: EKG PATIENT NAME: Marisa Huerta UNIT #: [id number] ORDERING PROVIDER: Leonora García PRIMARY CARE PROVIDER: BRENDA MATIAS NP DATE/TIME OF SERVICE: 05/05/23 0910 : 1960 PERFORMING LOCATION: ER APPROVED REPORT Exam: Resting ECG Reason for Exam: Dizziness Patient Location: E HR:55 bpm ECG Measurements Heart Rate 55 AXIS FL 146 P 63 QRSd 94 QRS 73 QT 469 T66 QTc 439 Conclusion Sinus bradycardia...rate< 60 Ventricular premature complex...V complex w/ short R-R interval Probable left ventricular hypertrophy...multiple LVH criteria sinus rhtyhm, normal axis, normal intevals, PVC, LVH <Electronically signed by Randall Smith M.D. in [place]> E-Sign Date: 05/06/23 E-Sign Time: 1503 ADDENDUM APPROVED REPORT Exam: Resting ECG Reason for Exam: Dizziness Patient Location: E HR:55 bpm ECG Measurements Heart Rate 55 AXIS FL 146 P 63 QRSd 94 QRS 73 QT 469 T66 QTc 439 Conclusion Sinus bradycardia...rate< 60 Ventricular premature complex...V complex w/ short R-R interval Probable left ventricular hypertrophy...multiple LVH criteria sinus rhtyhm, normal axis, normal intevals, PVC, LVH I have reviewed and I agree with the emergency room physician's ECG interpretation. Electronically signed by: <Electronically signed by Kylah Nunez M.D. in [place]> 05/09/23 0823 Cosigned by: Echocardiogram Summary: Patient Name: Marisa Huerta Unit #: [id number] Loc: DI Ordering Provider: Brenda Matias NP Status: REG CLI Primary Care Provider: Brenda Matias NP Date of Exam: 12/14/22 Sex: F Admission Date: 12/14/22 : 1960 Age: 62 APPROVED REPORT EXAM: Comprehensive 2D, Doppler, and color-flow Echocardiogram Patient Location: Out-Patient Claims Correspondence Clerk: Juan Jeffers RDCS (AE) Indications: sharp CP intermittently Conclusion Normal left ventricular wall thickness and chamber size. Ejection fraction is 60 to 65%. Wall motion is normal Normal right ventricular size and systolic function Both atria are normal in size There is no structural or hemodynamically significant valvular disease Wall motion Left Ventricle The left ventricle is normal size. Left ventricular systolic function is normal. The left ventricular ejection fraction is within the normal range. There is normal left ventricular wall thickness. There is normal LV segmental wall motion. There is no ventricular septal defect visualized. LVEF is 60-65%. Right Ventricle The right ventricle is normal size. The right ventricular systolic function is normal. The RVSP is 25.1 mmHg. Atria The left atrium size is normal. The right atrium size is normal. Aortic Valve The aortic valve is normal in structure. Aortic valve is trileaflet. There is no aortic valvular stenosis. No aortic regurgitation is present. Mitral Valve The mitral valve is normal in structure. No evidence of mitral valve stenosis. There is no mitral valve regurgitation noted. Tricuspid Valve The tricuspid valve is normal in structure. There is no tricuspid valve stenosis. There is no tricuspid valve regurgitation noted. Pulmonic Valve The pulmonary valve is normal in structure. There is no pulmonic valvular stenosis. There is no pulmonic valvular regurgitation. Great Vessels The aortic root is normal in size. The ascending aorta is normal Aortic arch is normal in caliber. IVC is normal in size and collapses >50% with inspiration. Pericardium There is no pericardial effusion. 2D Dimensions IVSD d PLAX 0.93 cm F: 0.6-1.0Ao Root d 3.14 cm F: 2.7 - 3.3 LVPW d PLAX 0.86 cm F: 0.6 - 1.0Ao Asc Diam d 3.28 cm F: 2.3 - 3.1 LVID d PLAX 4.42 cm F: 3.8 - 5.2 LVDs 2.87 cm F: 2.2 - 3.5 LV EF Teichholz 64.5 % FS35.03 % LV EDV (Teich)88.5 mL LV ESV (Teich)31.4 mL Stroke Vol Index (Teich)35.02 M-Mode TAPSE 2.73 cm (M/F) >1.7 LV Volumes - Method of Disks (Schultz's) Single Plane 2D LV VolumesBiplane 2D LV Volumes LV EDV A4C57.3 mLLV EDV BP66.11 mL F: 46 - 106 LV ESV A4C22.6 mLLV ESV BP23.4 mL LVEF(%) A4C60.6 %LVEF(%) BP64.63 % F: 54 - 74 LV EDV A2C66.0 mLLV EDV BP Index40.55 mL/m2 F: 29 - 61 LV ESV A2C23.6 mLSV BP LVEF(%) A2C64.2 %SV Index LA Volume LA Length A4C3.8 cmLA Length A2C LA Area A4C s 9.04 cm2LA Area A2C s LA Vol A4C A-L18.13 mLLA Vol A2C A-LLA Vol Biplane A-L LA Vol A4C MOD17.2 mLLA Vol A2C MODLA Vol BP MOD RA Volume RA Area A4C6.3 cm2RA ESV A4C (A-L)10.9mLRA Vol/BSA A4C A-L RA Length A4C3.1 cmRA ESV A4C (MOD)10.5mL LV Diastology MV E' medial0.105 (>0.07 m/s)MV E Vmax 0.87 (0.4-1.3 m/s) MV E/E' MED8.28 (<14)MV A Vmax 0.90 (0.4-1.3 m/s) MV E' lateral0.101 (>0.1 m/s)E/A Ratio 1.0 MV E/E' LAT8.59 (<14) MV E' Average0.103 m/s MV E/E'(average)8.44 Aortic Valve AoV Vmax1.56 m/sLVOT Vmax 1.22 m/s AoV Peak Grad9.7 mmHgLVOT Peak Grad 5.9 mmHg AoV Area (Vmax)2.36 aa5AIMR VTI0.250 m AoV VTI0.339 mLVOT Mean Grad 3.3 mmHg AoV Mean William.1.10 m/sLVOT SV 75.48 mL AoV Mean Grad5.6 mmHgLVOT Diam s 1.95 cm AoV Area (VTI)2.22 cm2 Velocity Ratio 0.78 Mitral Valve MV DT 213 (160-240 msec) Pulmonary Valve PV Vmax 1.26 (0.5-1.5 m/s)RVOT Vmax 0.97 m/s PV Peak Grad 6.4 mmHgRVOT Peak Gr.3.7 mmHg PV Mean Vel0.88 m/sRVOT VTI0.197 m PV Mean Grad 3.5 mmHgRVOT Mean Gr.1.6 mmHg Tricuspid Valve RA Pressure 3.00 mmHgTR Vmax 2.35 m/s TR Peak Grad 22.0 mmHg RVSP (TR) 25.1 mmHg Ordered By: Brenda Matias NP CC: Dictated By: Kylah Nunez M.D. 12/14/22 155 <Electronically signed by Kylah Nunez M.D. in [place]> 12/16/22 0830 Transcribed By: Kylah Nunez MD 12/14/221551 This is privileged, confidential information intended only for the provider named. Any use or distribution by any person other than this provider is strictly prohibited. If you receive this report in error, please notify us immediately at [phone] and return the original report to us at the address above. Thank-you. Carotid Artery Summary:: Patient Name: Marisa Huerta Unit #: [id number] Loc: DI Ordering Provider: Brenda Matias NP Status: REG CLI Primary Care Provider: Brenda Matias NP Date of Exam: 03/18/23 Sex: F Admission Date: 03/18/23 : 1960 Age: 63 Exam(s) US CAROTID EXAM: US CAROTID CLINICAL HISTORY: episodes change right vision,H53.9. TECHNIQUE: Ultrasound carotids performed using grayscale, color-flow, and spectral Doppler imaging. COMPARISON: No exams were available for comparison FINDINGS: RIGHT CAROTID ARTERY: Plaque: None. Velocity elevation: None. LEFT CAROTID ARTERY: Plaque: None. Velocity elevation: None. VERTEBRAL ARTERIES: Antegrade flow. Measurements: R Bulb: 50.4cm/s PS / 12cm/s ED R CCA: 61.3cm/s PS / 22.4cm/s ED R ECA: 53.1cm/s PS / 10.4cm/s ED R ICA Prox: 87cm/s PS / 34.5cm/s ED R ICA Mid: 108.6cm/s PS / 39.5cm/s ED R ICA Distal: 95.9cm/s PS /38.9cm/s ED R Vert: 61.6cm/s PS / 17.1cm/s ED R SVR: 1.8 R DVR: 1.8 L Bulb: 57.9cm/s PS / 19cm/s ED L CCA: 71.3cm/s PS / 23.4cm/s ED L ECA: 75.5cm/s PS / 13.2cm/s ED L ICA Prox: 80cm/s PS / 32.9cm/s ED L ICA Mid: 99.8cm/s PS / 38.6cm/s ED L ICA Distal: 82.3cm/s PS / 30.9cm/s ED L Vert: 61cm/s PS / 22.4cm/s ED L SVR: 1.4 L DVR: 1.6 IMPRESSION: No evidence for hemodynamically significant carotid stenosis. Criteria for Carotid Stenosis: Normal: ICA PSV <125 cm/s no plaque or intimal thickening is visible. <50% stenosis: ICA PSV <125 cm/s and plaque or intimal thickening is visible. 50-69% stenosis: ICA PSV is 125-250 cm/s and plaque is visible. >70% stenosis to near occlusion: ICA PSV >250 cm/s with visible plaque and luminal narrowing. DATA REPOSITORY: Ordered By: Brenda Matias NP CC: Dictated By: Mitch Alvarado M.D. 03/18/23 170 <Electronically signed by Mitch Alvarado M.D. in [place]> 03/18/231355 Transcribed By: Mitch Alvarado 03/18/231355 This is privileged, confidential information intended only for the provider named. Any use or distribution by any person other than this provider is strictly prohibited. If you receive this report in error, please notify us immediately at [phone] and return the original report to us at the address above. Thank-you. Anesthesia Assessment and Plan Anesthesia History Personal History: No History of Anesthesia Complications Family History: No Family History of Anesthesia Complications Exercise Tolerance Exercise Tolerance: Metabolic Equivalents>4 Pertinent Negatives Pertinent Negatives: No Major Pulmonary Symptoms or Complaints and No History of CVA/TIA Cardiac & Pulmonary Exam Cardiac Exam: Normal S1/S2 Heart Sounds Pulmonary Exam: Clear Bilateral Breath Sounds Implantable Cardiac Device Does patient have a Pacemaker or an ICD?: No Airway Exam Known Difficult Airway: No Mallampati Class: 3 Mouth Opening: Normal (> 3cm) Thyromental Distance: Greater than 3 cm Neck Range of Motion: Full ROM Neck Circumference: Normal Teeth Condition: Normal Dentition and Generalized Poor Dentition ASA Classification ASA Score: ASA 2 Emergency Case?: No NPO Status NPO Status: NPO Clears >2 hours, Solids >8 hours Anesthesia Plan Resuscitation Status: Full Code Anesthesia Technique: General Anesthesia Airway Planned: Natural Airway Monitors Used: Standard Monitors
[2023-12-26 09:56] VITALS: BMI 24.0
--- NOTE | 2023-12-26 10:06 | STOM_PTH ---
PATIENT: Marisa Huerta LOC: [facility] U#:[id number] AGE/SX: 63/F ROOM: RE12/26/[address]: Kevin Alvarado MD : 1960 BED: DIS: 12/26/2023 SPEC #: [id number] RECD: 12/26/23 11:45 STATUS: MARIAHRogelio RE #: [id number] TAYLOR: 12/26/23 10:[address]: Kevin Alvarado DEPT: Surgical Specimen RECD BY: Earnestine Nice ENTERED: 12/26/23 11:47 SP TYPE: STOMACH OTHR DR: Brenda Estrada APRN Tissues: 1 - STOMACH BIOPSY 2 - STOMACH BIOPSY 3 - ESOPHAGUS BIOPSY 4 - ESOPHAGUS BIOPSY Procedures: GROSS AND MICRO LEVEL 4 Comments: [id number]
[2023-12-26 10:19] VITALS: BP 149/81; PULSE 57; RESP 16; TEMP 36.4; O2SAT 98
[2023-12-26 10:38] VITALS: BP 181/84; PULSE 50; RESP 18; TEMP 36.4; O2SAT 100
--- NOTE | 2023-12-26 13:50 | W.ANESPOSTOP ---
Postoperative Evaluation Date, Time and Location Date Performed: 12/26/23 Time Performed: 10:20 Patient Location: Day Surgery Unit Vital Signs Most Recent Imported Vital Signs: Most Recent Vital Signs Temp Pulse Resp BP Pulse Ox 36.4 C L 50 L 18 181/84 H 100 12/26/23 10:38 12/26/23 10:38 12/26/23 10:38 12/26/23 10:38 12/26/23 10:38 Pain Score Most Recent Pain Score: Most Recent Pain Score Pain Level 3 12/26/23 08:59 Assessment Mental Status: Awake (Alert & Oriented to Patient Baseline) Airway and Respiratory Function: Patent airway with normal (patient baseline) respiratory exam Cardiovascular Function: Hemodynamically Stable Hydration Status: Adequately Hydrated Nausea & Vomiting: No Nausea or Vomiting Pain: Pt. Denies Any Pain Peripheral Nerve Block: Patient did not receive a nerve block
== END 2023-12-26 11:00 | disposition home or self-care (01) ==
LOC: SUR 08:30
PROVIDERS: PCP Nurse Practitioner; Visit Provider Surgery
PROC: 0DJ68ZZ Inspection of Stomach, Via Natural or Artificial Opening Endoscopic (ICD-10-PCS; CPT 43235; principal; 2023-12-26 09:45)
DX: R13.10 Dysphagia, unspecified (principal); K29.70 Gastritis, unspecified, without bleeding; K22.89 Other specified disease of esophagus
CPT/HCPCS: 43239; 88305; J2704

== ENCOUNTER 2024-03-08 01:07 | Outpatient (CLI) | payer BC, SELFPAY ==
[2024-03-08 07:56] LABS: ALT 34 U/L (14-59); AST 17 U/L (15-37); Albumin 3.8 g/dL (3.4-5.0); Alkaline Phosphatase 100 U/L (46-116); Anion Gap 3.1 mmol/L (3-11); BUN 19 mg/dL (7-18); CO2 32.9 mmol/L (21.0-32.0); CREATININE 0.9 mg/dL (0.55-1.02); Calcium 9.6 mg/dL (8.5-10.1); Chloride 106 mmol/L (98-107); Estimated GFR 72.28 (mL/min/1.73m2); Glucose 114 mg/dL (74-106); Sodium 142 mmol/L (136-145); Total Protein 7.4 g/dL (6.4-8.2)
[2024-03-08 09:18] LABS: Calculated LDL 111 mg/dL (<100); Cholesterol 191 mg/dL (<200); HDL Cholesterol 63 mg/dL (40-60); Triglyceride 85 mg/dL (<150); Vitamin B12 334 pg/mL (193-986)
== END 2024-03-08 01:08 | disposition home or self-care (01) ==
LOC: LBO 01:07
PROVIDERS: PCP Nurse Practitioner; Visit Provider Nurse Practitioner
DX: R79.89 Other specified abnormal findings of blood chemistry (principal); I10 Essential (primary) hypertension
CPT/HCPCS: 36415; 80053; 80061; 82607

== ENCOUNTER 2024-04-23 15:53 | Outpatient (REF) | payer BC, SELFPAY | END 2024-04-23 15:54 | disposition home or self-care (01) | LOC: LBN 15:53 | PROVIDERS: PCP Nurse Practitioner; Visit Provider Nurse Practitioner | DX: R31.9 Hematuria, unspecified (principal); R30.0 Dysuria | CPT/HCPCS: 87086 ==

== ENCOUNTER 2024-05-07 17:52 | Outpatient (REF) | payer BC, SELFPAY | END 2024-05-07 17:53 | disposition home or self-care (01) | LOC: LBN 17:52 | PROVIDERS: PCP Nurse Practitioner; Visit Provider Nurse Practitioner | DX: R30.0 Dysuria (principal); M54.50 Low back pain, unspecified; R31.9 Hematuria, unspecified | CPT/HCPCS: 87086 ==

== ENCOUNTER 2024-05-29 00:50 | Outpatient (CLI) | payer BC, SELFPAY ==
--- NOTE | 2024-05-29 06:15 | DI.MAMMO_ITS ---
Exam(s) MAMMO SCREENING EXAM: MAMMO SCREENING CLINICAL HISTORY: screening,z12.39 TECHNIQUE: Mammograms were interpreted according to the usual protocol including computer analysis w [employer] CAD system, tomosynthesis and C-view imaging. COMPARISON: 2014 through 2019 FINDINGS: The breasts are composed of heterogeneously dense fibroglandular densities, Breast Density category C . No suspicious masses or suspicious microcalcifications are seen. No skin thickening or abnormal axillary lymph nodes are seen. There has been no significant change from prior exams. IMPRESSION: BI-RADS Category 1, Negative mammogram. Yearly screening mammography is recommended. Breast Density Category C, heterogeneously Dense. The mammogram demonstrates the patient's breast tissue is dense. Dense breast tissue is very common a nd is not abnormal but dense breast tissue can make it harder to find cancer on a mammogram. Also, de nse breast tissue may increase breast cancer risk. This information about the result of the mammogram report was provided to the patient to raise their awareness. Use this report when you speak with the patient about their risks for breast cancer, which includes their family history. At that time, you may recommend additional screening tests (Ultrasound or MRI) as they might be useful based on their r isk. A negative radiographic report should not delay biopsy if a dominant or clinically suspicious mass is present. Up to ten percent of cancers are not identified on mammography. A negative report may reinforce clinical impression. Adenosis and dense breasts may obscure an underlying neoplasm. False positive reports average 6 to 10%.
== END 2024-05-29 01:10 ==
LOC: DI 00:50
PROVIDERS: PCP Nurse Practitioner; Visit Provider Nurse Practitioner
DX: Z12.31 Encounter for screening mammogram for malignant neoplasm of breast (principal); R92.333 Mammographic heterogeneous density, bilateral breasts
CPT/HCPCS: 77063; 77067

== ENCOUNTER 2024-07-05 07:20 | Emergency (ER) | payer BC, SELFPAY ==
[2024-07-05 07:23] VITALS: BP 164/105; PULSE 60; RESP 16; TEMP 36.8; O2SAT 100
[2024-07-05 07:32] VITALS: BP 164/105; PULSE 60; RESP 16; TEMP 36.8; O2SAT 100
[2024-07-05 08:25] LABS: Bilirubin Negative (Negative); Blood Moderate (Negative); Clarity Sl Cloudy (Clear); Glucose Negative (Negative); Ketones Negative (Negative); Leukocyte Esterase Negative (Negative); Nitrite Negative (Negative); Urobilinogen 0.2 mg/dL (Up to 0.2); pH 5.5 (5-8)
[2024-07-05 08:34] LABS: Abs Immature Grans 0.02 10^3/uL (0.0-0.06); Absolute Basophil Count 0.07 10^3/uL (0.0-0.2); Absolute Eosinophil Count 0.18 10^3/uL (0.0-0.7); Absolute Lymphocyte Count 2.18 10^3/uL (1.2-3.4); Absolute Monocyte Count 0.42 10^3/uL (0.1-0.8); Absolute Neutrophil Count 3.58 10^3/uL (1.2-6.7); Basophils % 1.1 %; Eosinophils % 2.8 %; HCT 42.5 % (36.0-46.0); HGB 14.6 g/dL (11.2-15.7); Immature Grans % 0.3 %; Lymphocytes % 33.8 %; MCH 31.9 pg (27.0-33.0); MCHC 34.4 % (32.0-36.0); MCV 93 fL (80-95); MPV 9.8 fL (8.0-11.0); Monocytes % 6.5 %; Neutrophils % 55.5 %; Platelet Count 230 10^3/uL (130-400); RBC 4.58 10^6/uL (3.93-5.22); RDW 11.9 % (11.7-14.6); RDW-SD 40.3 fL; WBC 6.45 10^3/uL (4.4-10.8)
[2024-07-05] MEDS: Omnipaque 350 MG/ML 100 ML BTL IJ (08:38)
--- NOTE | 2024-07-05 08:38 | ED.GENADUL_ITS ---
Discharge Plan Disposition Patient Disposition: Home Condition: Stable Discharge Details Clinical Impression: Hematuria, microscopic, Renal cyst Primary Care Provider: Trey Pérez ED Provider: Sole Lopez Home Meds and New Rx's Prescriptions: No Action losartan 100 mg tablet 100 mg PO DAILY Qty: 90 3RF metoprolol succinate 25 mg tablet extended release 24 hr 25 mg PO QPM Qty: 90 3RF naproxen 250 mg tablet 250 mg PO BID PRN omeprazole 20 mg capsule,delayed release(DR/EC) 20 mg PO BID PRN (Reason: reflux) Qty: 60 1RF estradiol 0.01 % (0.1 mg/gram) cream 1 g vaginal .COMPLEX Qty: 42.5 6RF Rx Instructions: 1 g vaginal daily for 2 weeks then twice weekly; clobetasol 0.05 % ointment 1 applic topical BID Qty: 45 6RF Rx Instructions: tiny amount to vulva twice daily x1 month,daily for 1 month then twice weekly nitrofurantoin monohyd/m-cryst [Macrobid] 100 mg capsule 100 mg PO BID Qty: 10 0RF Rx Instructions: must administer with a meal/food Discharge Instructions Instructions: Blood in Urine (Hematuria), Adult ED Additional Instructions: You were seen in the emergency department today for evaluation of blood in your urine and left-sided flank pain. In our department you had a full physical examination performed, had laboratory studies that were reassuring, and had a CT scan that did not show any sign of kidney stones. Your urine does not show sign of infection. We did incidentally note a simple renal cyst on your left kidney, which does not require any specific follow-up. It is not definitively known why you are experiencing blood in your urine, and further workup is required. I have provided you with a referral to Dr. Forrester in the urology clinic, please await their call to schedule follow-up appointment for ongoing assessment. Please follow-up with your primary care provider in the next few d ays to discuss this visit and any symptoms that change, worsen, or persist. Thank you for allowing us to be part of your care. Referrals: Bereket Forrester MD [ [facility] STAFF PHYSICIAN] - 2 weeks HPI General Mode of arrival: ambulatory . Date/Time Provider Initiated Documentation: 07/05/24 07:36 . Limitations to Documentation: no limitations . Information obtained by: patient and old records reviewed . HPI Narrative: This is a 64-year-old female patient with a history of hypertension, UTI, presenting for evaluation of flank pain and blood in her urine. She first noticed hematuria in 04/2024, which was initially evaluated by Brenda at [facility]. A urinary tract infection was suspected, and she completed a course of antibiotics. Subsequent urinalysis revealed no abnormalities. However, a follow-up test conducted at the hospital indicated contamination. Despite another contaminated sample weeks later, she received no further communication regarding her condition. She has not observed any recurrence of hematuria. Recently, she consulted with Dr. Yang due to persistent discomfort and was informed of microscopic hematuria, even though her urine appeared clear. A CT scan was recommended. She reports frequent urination, often with clear urine, and attempts to maintain hydration. She experiences hot flashes but no fevers or chills. She occasionally feels nauseous and had an episode of vomiting a few weeks ago, which resolved the following day. She has no history of kidney stones. Her last course of antibiotics for a urinary tract infection was in 04/2024. She has been experiencing lower back pain/left flank pain since the end of 04/2024, which is exacerbated by certain positions. The pain is predominantly on the left side and does not radiate. She describes a sensation similar to that experienced during a urinary tract infection but without visible hematuria. She has not sought any home remedies for her pain and does not feel the need for [id number]-[id number] analgesics such as Tylenol or ibuprofen. She has unintentionally lost approximately 5 pounds over the past few months, with a decrease in appetite. Her bowel movements are generally regular, although she occasionally experiences constipation. Supplemental Information She has hypertension, which is managed with medication. Her surgical history includes tubal ligation. Related Data Home Medications ?Medication ?Instructions ?Recorded ?Confirmed naproxen 250 mg tablet 250 mg PO BID PRN 01/11/23 07/05/24 clobetasol 0.05 % topical ointment 1 applic topical BID vulvar lichen 04/12/23 07/05/24 sclerosis #45 grams estradiol 0.01% (0.1 mg/gram) 1 g vaginal .COMPLEX #42.5 grams 04/12/23 07/05/24 vaginal cream losartan 100 mg tablet 100 mg PO DAILY #90 tabs 02/28/24 07/05/24 metoprolol succinate 25 mg 25 mg PO QPM #90 tabs 02/28/24 07/05/24 tablet,extended release 24 hr nitrofurantoin 100 mg PO BID #10 caps 04/23/24 07/05/24 monohydrate/macrocrystals 100 mg capsule (Macrobid) omeprazole 20 mg capsule,delayed 20 mg PO BID PRN reflux #60 caps 07/04/24 07/05/24 release Previous Rx's ?Medication ?Instructions ?Recorded clobetasol 0.05 % topical ointment 1 applic topical BID 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 #45 grams estradiol 0.01% (0.1 mg/gram) 1 g vaginal .COMPLEX #42.5 grams 04/12/23 vaginal cream losartan 100 mg tablet 100 mg PO DAILY #90 tabs 02/28/24 metoprolol succinate 25 mg 25 mg PO QPM #90 tabs 02/28/24 tablet,extended release 24 hr nitrofurantoin 100 mg PO BID #10 caps 04/23/24 monohydrate/macrocrystals 100 mg capsule (Macrobid) omeprazole 20 mg capsule,delayed 20 mg PO BID PRN reflux #60 caps 07/04/24 release Allergies Allergy/AdvReac Type Severity Reaction Status Date / Time metronidazole (From Metrogel) AdvReac Hives Verified 07/05/24 07:28 General Stated Complaint: FlankPain KVNG: 3 Exam Narrative Exam Narrative: Gen: Awake and alert, in no apparent distress HEENT: Non-icteric sclera Neck: Supple Lungs: No apparent respiratory distress, normal respiratory effort. CV: Appears well perfused, strong distal pulses with regular rate and rhythm Abdomen: Non-distended, soft, nontender to palpation without rigidity, rebound, or guarding. MSK: Moves 4 extremities without apparent limitation in ROM. The patient has left-sided CVA/flank area tenderness, no midline back pain or overlying skin changes Skin: Visualized skin without rashes, cyanosis. Neuro: Normal Gait, no obvious focal deficits or facial asymmetry. Speaks in full, clear sentences. Psych: Appropriate for situation. Course Vital Signs Vital signs: Vital Signs Temperature 36.8 C 07/05/24 07:23 Pulse 60 07/05/24 07:23 Respiratory Rate 16 07/05/24 07:23 Blood Pressure 164/105 H 07/05/24 07:23 Pulse Oximetry 100 07/05/24 07:23 Temperature 36.8 C 07/05/24 07:32 Temperature Source Oral 07/05/24 07:32 Pulse 60 07/05/24 07:32 Respiratory Rate 16 07/05/24 07:32 Blood Pressure 164/105 H 07/05/24 07:32 Blood Pressure Position Sitting 07/05/24 07:32 Pulse Oximetry 100 07/05/24 07:32 Oxygen Delivery Method Room Air 07/05/24 07:32 Oxygen Flow Rate 0 07/05/24 07:32 Pain Level 5 07/05/24 07:32 Lab/Test Results Lab/Test Results: Laboratory Tests Range/Units 07/05/24 07/05/24 08:11 08:24 WBC (4.4-10.8) 10^3/uL 6.45 RBC (3.93-5.22) 10^6/uL 4.58 Hgb (11.2-15.7) g/dL 14.6 Hct (36.0-46.0) % 42.5 MCV (80-95) fL 93 MCH (27.0-33.0) pg 31.9 MCHC (32.0-36.0) % 34.4 RDW (11.7-14.6) % 11.9 Plt Count (130-400) 10^3/uL 230 MPV (8.0-11.0) fL 9.8 Immature Gran % % 0.3 Neutrophils % % 55.5 Lymphocytes % % 33.8 Monocytes % % 6.5 Eosinophils % % 2.8 Basophils % % 1.1 Nucleated RBC % (0.0-0.3) % 0.0 Absolute Neutrophils (1.2-6.7) 10^3/uL 3.58 Absolute Lymphocytes (1.2-3.4) 10^3/uL 2.18 Absolute Monocytes (0.1-0.8) 10^3/uL 0.42 Absolute Eosinophils (0.0-0.7) 10^3/uL 0.18 Absolute Basophils (0.0-0.2) 10^3/uL 0.07 Urine Color (Yellow) Yellow Urine Clarity (Clear) Sl Cloudy Urine pH (5-8) 5.5 Ur Specific Collins (1.005-1.025) 1.020 Urine Protein (Neg-Trace) mg/dL Negative Urine Ketones (Negative) mg/dL Negative Urine Blood (Negative) Moderate H Urine Nitrite (Negative) Negative Urine Bilirubin (Negative) Negative Urine Urobilinogen (Up to 0.2) mg/dL 0.2 Ur Leukocyte Esterase (Negative) Negative Urine Glucose (Negative) mg/dL Negative Medical Decision Making In brief, this is a 64-year-old female patient presenting for evaluation of left flank pain for the last several months, as well as microscopic hematuria. Differential includes but is not limited to urinary tract infection, kidney stones, certainly considered renal malignancy. The duration of symptoms, the patient's hemodynamic stability, and her lack of abdominal pain reassure me against aortic pathology such as AAA. Considered metabolic electrolyte derangement, kidney injury, nephritic syndrome, ATN, medication effects. Musculoskeletal etiologies would not be expected to cause microscopic hematuria but could certainly be contributing to her low back/flank pain. We will obtain laboratory studies to include CBC, CMP, magnesium, and will repeat her urinalysis. I will obtain a CT scan of her abdomen and pelvis with contrast to evaluate for any abnormalities which could explain her symptoms. - I independently interpreted the laboratory studies, which show no significant leukocytosis, anemia, or thrombocytopenia. The chemistry panel is without evidence of electrolyte abnormality, kidney dysfunction, or liver injury. Urinalysis shows hematuria without other evidence for infection nor casts to suggest nephritic syndrome. I reviewed the patient's CT scan, which does show a simple renal cyst of the left kidney, with no recommended follow-up per radiology given its characteristics. No evidence for renal stone, bladder abnormality, or other specific finding to explain the patient's symptoms. I did share this finding with the patient, and provided her with a referral to urology for ongoing workup and management of her microscopic hematuria. At this time, the patient has had a full medical evaluation and is safe for discharge to home. They are hemodynamically stable, ambulatory, and tolerating PO. They are understanding of the follow-up plan and return precautions. They left our facility without incident. Sole Lopez MD Medical Records Medical records reviewed: Yes I reviewed the patient's medical records. Lab Data Lab results reviewed: Yes I reviewed the patient's lab results. Quality:SDMT Health Related Social Needs: No Data to Display FORMERLY [facility] All Active Problems (Updated 07/05/24 @ 09:29 by Sole Lopez MD) Renal cyst (Acute) Hematuria, microscopic (Acute) Flank pain (Acute) Hematuria (Acute) HTN (hypertension) (Chronic) Dysphagia (Acute) Acid reflux (Chronic) Systolic murmur (Acute) Dysuria (Acute) UTI (urinary tract infection) (Acute) . EColi. Rx Nitrofurantoin Rib pain on left side (Acute) Vaginal dryness (Acute) 05/23/19. Unclear if sx 2/2 LS or primary menopausal vaginal atrophy 09/2020. Rx for vaginal E2 cream. History of female sterilization (Chronic) Lichen sclerosus et atrophicus of the vulva (Acute) 05/2019. Rx with clobetasol. Medical History (Updated 07/05/24 @ 09:29 by Sole Lopez MD) COVID (~03/19/24) Surgical History (Updated 12/26/23 @ 15:24 by Idalia Almendarez) History of esophagogastroduodenoscopy (~12/2023) Family History Uncle Cancer Aunt Cancer Paternal Grandfather Hypertension Social History (Updated 02/28/24 @ 16:46 by Jessica Londono LPN) Smoking/Tobacco Use Status: Never Second Hand Exposure: No Smoking risk assessment performed?: Yes Alcohol Intake: current Alcohol Intake frequency: holidays/special occasions only Details: Monthly or less Drug use: Occasionally Substance use type: marijuana Counseling given: No Details: CBD products -3 times a week. Smokes THC 3xweek Adopted: No Caregiver/Support person: No Foster care: No Household members: spouse, children and other Details: Lakesha. She is stepmom of his 3 kids Housing: house Number of Children: 4 number of grandchildren: 8 Communication Needs: Corrective Lenses Education Level: high school Do you need help understanding health information?: Never current occupation: [employer] Pets and animals: Yes (1) Pets and animals: dog(s) Sexually active: Yes Do you think of yourself as: straight/heterosexual Current gender identity: female What is your relationship status?: How often do you talk on the phone with friends or family?: three or more times per week How often do you get together with friends or relatives?: twice per week Do you belong to any clubs or organized social groups?: no Panel score (0-1 are the most socially isolated patients): 2 What type of physical activity do you participate in: walking Duration: 30-45 minutes/day Frequency: 5-6 times per week Debbie/Advent: None Special debbie needs: No Seatbelt use: always Drive 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
[2024-07-05 08:39] LABS: Bacteria Few HPF (Negative); C & S Indicated? No; Casts Negative LPF (Negative); Crystals Negative HPF (Negative); Epithelial Cells Few HPF (Negative); Mucus Moderate (Negative); WBC 0-2 HPF (0-5)
[2024-07-05] MEDS: Normal Saline - Diluent 50 ML VIAL IJ (08:41)
--- NOTE | 2024-07-05 08:45 | DI.CT_ITS ---
Exam(s) CT ABDOMEN PELVIS W EXAM: CT ABDOMEN PELVIS W CLINICAL HISTORY: L. flank pain, hematuria, unintentional weight los TECHNIQUE: Imaging Protocol: Axial computed tomography images with coronal and sagittal reformatted images were created and reviewed. CONTRAST MATERIAL: Intravenous: Omnipaque 350 Contrast volume:75 mL Oral: No COMPARISON: No exams were available for comparison FINDINGS: ABDOMEN: Lung Bases: No acute abnormality. Liver: Normal density. There is a tiny hypodensity in the left lobe of the liver. It is too small fo r further characterization. No suspicious hepatic masses are present. Portal, Superior Mesenteric, and Splenic Veins: Unremarkable. Gallbladder and Biliary Tract: No radiodense calculus or dilation. Pancreas: Normal density, no abnormal calcifications or inflammatory process. Spleen: Normal. Adrenals: No masses seen. Kidneys: Normal size, contour and axis. No radiodense stones or obstructive uropathy. There is a simp le 3.8 x 4.2 cm cyst at the inferior pole of the left kidney. No follow-up is recommended. Abdominal Aorta: Abdominal portion non-dilated. Atherosclerotic calcification is present. Bowel: There are few diverticula seen in the colon, but no evidence of acute diverticulitis. Appendi x is unremarkable. Peritoneal Cavity: No ascites, collection or mesenteric inflammatory response. No free air. Lymph Nodes: Within normal limits. Bones: Within normal limits for the patient's age. Soft Tissues: Unremarkable. PELVIS: Bladder: The urinary bladder is incompletely distended but grossly unremarkable. No bladder stones a re seen. Reproductive Organs: Unremarkable as visualized. Lymph Nodes: Within normal limits. Bones: Within normal limits for the patient's age. IMPRESSION: 1. There is no evidence of nephrolithiasis or hydronephrosis. 2. Colonic diverticulosis without evidence of acute diverticulitis. 3. No acute abdominal or pelvic process. RADIATION DOSE DELIVERED: 305.67mGy.cm Total DLP DATA REPOSITORY: All CT scans at this facility are submitted to the National Radiology Data Registry (NRDR) Dose Index Registry (DIR) with the [employer] (ACR). RADIATION OPTIMIZATION: All CT scans at this facility use at least one of these dose optimization te chniques: automated exposure control; mA and/or kV adjustment per patient size (includes targeted exa ms where dose is matched to clinical indication); or iterative reconstruction.
[2024-07-05 08:49] LABS: ALT 26 U/L (14-59); AST 18 U/L (15-37); Albumin 4.2 g/dL (3.4-5.0); Alkaline Phosphatase 105 U/L (46-116); BUN 14 mg/dL (7-18); CREATININE 0.8 mg/dL (0.55-1.02); Calcium 9.5 mg/dL (8.5-10.1); Chloride 104 mmol/L (98-107); Estimated GFR 83.26 (mL/min/1.73m2); Glucose 113 mg/dL (74-106); Magnesium 2.1 mg/dL (1.8-2.4); Potassium 3.5 mmol/L (3.5-5.1); Sodium 141 mmol/L (136-145); Total Protein 7.7 g/dL (6.4-8.2)
[2024-07-05 09:00] LABS: Bilirubin, Total 0.4 mg/dL (0.2-1.0)
[2024-07-05 09:52] VITALS: BP 156/74; PULSE 52; RESP 16; O2SAT 99
== END 2024-07-05 09:54 | disposition home or self-care (01) ==
PROVIDERS: Emergency Provider Emergency Medicine; PCP Family Medicine
DX: R31.29 Other microscopic hematuria (principal); N28.1 Cyst of kidney, acquired; I10 Essential (primary) hypertension; Z79.899 Other long term (current) drug therapy
CPT/HCPCS: 36415; 80053; 99285; 74177; 81003; 81015; 83735; 85025; 99284; J3490

== ENCOUNTER 2024-07-19 08:08 | Day surgery (SDC) | payer BC, SELFPAY ==
[2024-07-19 08:25] VITALS: BP 130/78; PULSE 46; RESP 17; TEMP 36.3; O2SAT 98
[2024-07-19] MEDS: Lactated Ringers 1,000 ML 80 ML IV (08:38)
--- NOTE | 2024-07-19 10:07 | W.PM.HP.N ---
Date of service: 07/19/24 Time of Service: 10:07 Assessment and Plan Assessment and plan (1) Hematuria, microscopic: Status: Acute Assessment and plan: We will complete her hematuria workup with a cystoscopy and bilateral retrograde pyelogram. Based on findings, we will be prepared to do ureteroscopy or a transurethral resection of a bladder tumor. History of Present Illness History of Present Illness Chief Complaint: Microscopic hematuria Narrative: This is a 64-year-old woman who noticed gross hematuria, left flank pain and pain while urinating about 2 months ago. She was seen in the emergency department. Her urine culture showed no infection. She had a CT scan which did not show any obvious kidney stones. Her gross hematuria has resolved, but she has had persistent microscopic hematuria. She presents now for cystoscopy and retrograde pyelogram. If there is concern about a distal ureteral stone, we will be prepared to do a semirigid ureteroscopy and stone manipulation. Review of Systems Narrative: No fevers or chills No vision change or dysphasia No diabetes or thyroid dysfunction No shortness of breath, cough or hemoptysis No chest pain or palpitations GERD - on omeprazole. No nausea, vomiting, hepatitis, ulcers, jaundice No seizures, strokes or peripheral neuropathy No bleeding disorders or anemia No gout PFSH All Active Problems Renal cyst (Acute) Hematuria, microscopic (Acute) Flank pain (Acute) Hematuria (Acute) HTN (hypertension) (Chronic) Dysphagia (Acute) Acid reflux (Chronic) Systolic murmur (Acute) Dysuria (Acute) UTI (urinary tract infection) (Acute) . EColi. Rx Nitrofurantoin Rib pain on left side (Acute) Vaginal dryness (Acute) 05/23/19. Unclear if sx 2/2 LS or primary menopausal vaginal atrophy 09/2020. Rx for vaginal E2 cream. History of female sterilization (Chronic) Lichen sclerosus et atrophicus of the vulva (Acute) 05/2019. Rx with clobetasol. Medical History COVID (~03/19/24) Surgical History History of esophagogastroduodenoscopy (~12/2023) Family History Uncle Cancer Aunt Cancer Paternal Grandfather Hypertension Social History Smoking/Tobacco Use Status: Never Second Hand Exposure: No Smoking risk assessment performed?: Yes Alcohol Intake: current Alcohol Intake frequency: holidays/special occasions only Details: Monthly or less Drug use: Daily Substance use type: marijuana Counseling given: No Adopted: No Caregiver/Support person: No Foster care: No Household members: spouse, children and other Details: Lakesha. 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 [employer] Pets and animals: Yes (1) Pets and animals: dog(s) Sexually active: Yes Do you think of yourself as: straight/heterosexual Current gender identity: female What is your relationship status?: How often do you talk on the phone with friends or family?: three or more times per week How often do you get together with friends or relatives?: twice per week Do you belong to any clubs or organized social groups?: no Panel score (0-1 are the most socially isolated patients): 2 What type of physical activity do you participate in: walking Duration: 30-45 minutes/day Frequency: 5-6 times per week Debbie/Yazidism: None Special debbie needs: No Seatbelt use: always Drive intox or ride w/intox garbage 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 Working smoke detector in home: Yes Fire extinguisher in home: Yes Carbon monox detector in home: Yes Do you feel safe at home: Yes Do you feel safe in your relationship?: Yes Female Reproductive History Menstrual control method: permanent sterilization Menopause type: natural Date of menopause: 05/22/17 History History 2 Para 2 Hx # Term Pregnancies Multiple births Hx # Pregnancies Ectopic pregnancies AB induced Hx Number of Living Children AB spontaneous Meds Allergies and Home Medications Allergies Allergy/AdvReac Type Severity Reaction Status Date / Time metronidazole (From Metrogel) AdvReac Hives Verified 07/19/24 08:24 Home Medications ?Medication ?Instructions ?Recorded ?Confirmed ?Type naproxen 250 mg tablet 250 mg PO BID PRN 01/11/23 07/19/24 History clobetasol 0.05 % topical ointment 1 applic topical BID vulvar lichen 04/12/23 07/19/24 Rx sclerosis #45 grams estradiol 0.01% (0.1 mg/gram) 1 g vaginal .COMPLEX #42.5 grams 04/12/23 07/19/24 Rx vaginal cream losartan 100 mg tablet 100 mg PO DAILY #90 tabs 02/28/24 07/19/24 Rx metoprolol succinate 25 mg 25 mg PO QPM #90 tabs 02/28/24 07/19/24 Rx tablet,extended release 24 hr omeprazole 20 mg capsule,delayed 20 mg PO BID PRN reflux #60 caps 07/04/24 07/19/24 Rx release Exam Const General: cooperative Neck Neck: supple Resp Effort & Inspection: normal respiratory effort Auscultation: clear to auscultation bilaterally Cardio Rate: regular rate Rhythm: regular rhythm GI Palpation: soft and no masses Neuro General: patient alert, patient awake and patient oriented x3 Results Last Vital Signs Temp 36.3 C L 07/19/24 08:25 Pulse 46 L 07/19/24 08:25 Resp 17 07/19/24 08:25 BP 130/78 07/19/24 08:25 Pulse Ox 98 07/19/24 08:25 Time Spent Time spent with Patient: <40 minutes Time was spent: other
--- NOTE | 2024-07-19 10:15 | W.ANESPRE ---
General Info Date of Service Date Performed: 07/19/24 Height: 5 ft 3 in Weight: 58.7 kg Body Mass Index (BMI): 22.9 Surgical Procedure: Operation Date: 07/19/24 10:10 Proposed Procedure Side Surgeon p Cystoscopy/Laser/Retrograde/Ureteroscopy/ ? Stone Manipulation Bilateral Bereket Forrester MD Meds Allergies and Home Medications Allergies Allergy/AdvReac Type Severity Reaction Status Date / Time metronidazole (From Metrogel) AdvReac Hives Verified 07/19/24 08:24 Home Medication ?Medication ?Instructions ?Recorded naproxen 250 mg tablet 250 mg PO BID PRN 01/11/23 clobetasol 0.05 % topical ointment 1 applic topical BID 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 #45 grams estradiol 0.01% (0.1 mg/gram) 1 g vaginal .COMPLEX #42.5 grams 04/12/23 vaginal cream losartan 100 mg tablet 100 mg PO DAILY #90 tabs 02/28/24 metoprolol succinate 25 mg 25 mg PO QPM #90 tabs 02/28/24 tablet,extended release 24 hr omeprazole 20 mg capsule,delayed 20 mg PO BID PRN reflux #60 caps 07/04/24 release Current Visit Medications: Current Medications Generic Name Dose Route Start Last Admin Trade Name Freq PRN Reason Stop Dose Admin Ringer's Solution 1,000 mls @ 80 mls/hr 07/19/24 06:00 07/19/24 08:38 IV 07/19/24 23:59 80 mls/hr INFUSION JESSIE Administration Cefazolin Sodium/Dextrose 2 gm in 50 mls @ 100 mls/hr 07/19/24 06:00 Ancef Duplex IVPB 07/19/24 23:59 PREOP JESSIE IV Miscellaneous Supplies 1 each 07/19/24 06:00 Iv Access IV 07/19/24 23:59 DIRECTED JESSIE Sodium Chloride 0 ml 07/19/24 06:00 Normal Saline Flush 10 Ml Syr IV 07/19/24 23:59 PRN PRN Sodium Chloride 0 ml 07/19/24 06:00 Normal Saline 10 Ml Vial IJ 07/19/24 23:59 DIRECTED PRN Sterile Water 0 ml 07/19/24 06:00 Water,Injection,Sterile 10 Ml Vial IJ 07/19/24 23:59 DIRECTED PRN PFSH Active Problems Active Problems: Problem Status Onset Code Renal cyst Acute N28.1 Hematuria, microscopic Acute R31.29 Flank pain Acute R10.9 Hematuria Acute R31.9 HTN (hypertension) Chronic I10 Dysphagia Acute R13.10 Acid reflux Chronic K21.9 Systolic murmur Acute R01.1 Dysuria Acute R30.0 UTI (urinary tract infection) Acute N39.0 Rib pain on left side Acute R07.81 Vaginal dryness Acute N89.8 History of female sterilization Chronic Z98.890 Lichen sclerosus et atrophicus of the vulva Acute N90.4 Medical History Medical History COVID (~03/19/24) Surgical History Surgical History History of esophagogastroduodenoscopy (~12/2023) Tobacco Smoking/Tobacco Use Status: Never Passive smoking exposure: No Second hand exposure: No Alcohol Alcohol Intake: current Alcohol intake frequency: holidays/special occasions only Details: Monthly or less Substance Use Substance use: Daily Substance use type: marijuana Prental History History 2 Para 2 Hx # Term Pregnancies Multiple births Hx # Pregnancies Ectopic pregnancies AB induced Hx Number of Living Children AB spontaneous Vital Signs and Lab Results Vital Signs Most Recent Vital Signs in EMR: Most Recent Vital Signs Temp Pulse Resp BP Pulse Ox 36.3 C L 46 L 17 130/78 98 07/19/24 08:25 07/19/24 08:25 07/19/24 08:25 07/19/24 08:25 07/19/24 08:25 Lab Results Blood Type / Crossmatch: No Data to Display Complete Blood Count: White Blood Count 6.45 10^3/uL (4.4-10.8) 07/05/24 08:24 Red Blood Count 4.58 10^6/uL (3.93-5.22) 07/05/24 08:24 Hemoglobin 14.6 g/dL (11.2-15.7) 07/05/24 08:24 Hematocrit 42.5 % (36.0-46.0) 07/05/24 08:24 Platelet Count 230 10^3/uL (130-400) 07/05/24 08:24 Complete Metabolic Panel: Sodium 141 mmol/L (136-145) 07/05/24 08:24 Potassium 3.5 mmol/L (3.5-5.1) 07/05/24 08:24 Chloride 104 mmol/L (98-107) 07/05/24 08:24 Carbon Dioxide 32.0 mmol/L (21.0-32.0) 07/05/24 08:24 BUN 14 mg/dL (7-18) 07/05/24 08:24 Creatinine 0.8 mg/dL (0.55-1.02) 07/05/24 08:24 Est GFR (CKD-EPI 2020) 83.26 (mL/min/1.73m2) 07/05/24 08:24 Magnesium 2.1 mg/dL (1.8-2.4) 07/05/24 08:24 Calcium 9.5 mg/dL (8.5-10.1) 07/05/24 08:24 Albumin 4.2 g/dL (3.4-5.0) 07/05/24 08:24 Glucose 113 mg/dL (74-106) H 07/05/24 08:24 Liver Function Panel: Alanine Aminotransferase (ALT/SGPT) 26 U/L (14-59) 07/05/24 08:24 Aspartate Amino Transf (AST/SGOT) 18 U/L (15-37) 07/05/24 08:24 Coagulation Panel: No Data to Display Cardiac Panel: No Data to Display Arterial Blood Gas: No Data to Display Venous Blood Gas: No Data to Display Pancreas Panel: No Data to Display Thyroid Panel: No Data to Display Infectious Disease: No Data to Display Blood Cultures: No Data to Display Toxicology Panel: No Data to Display Imaging and Studies Imaging and Studies Study information below may be from another EMR and interpreted by another provider. Please see original notes in EMR for more complete details. EKG Summary: EKG PATIENT NAME: Marisa Huerta UNIT #: [id number] ORDERING PROVIDER: Leonora García PRIMARY CARE PROVIDER: BRENDA MATIAS NP DATE/TIME OF SERVICE: 05/05/23 0910 : 1960 PERFORMING LOCATION: ER APPROVED REPORT Exam: Resting ECG Reason for Exam: Dizziness Patient Location: E HR:55 bpm ECG Measurements Heart Rate 55 AXIS UT 146 P 63 QRSd 94 QRS 73 QT 469 T66 QTc 439 Conclusion Sinus bradycardia...rate< 60 Ventricular premature complex...V complex w/ short R-R interval Probable left ventricular hypertrophy...multiple LVH criteria sinus rhtyhm, normal axis, normal intevals, PVC, LVH <Electronically signed by Randall Smith M.D. in [place]> E-Sign Date: 05/06/23 E-Sign Time: 1503 ADDENDUM APPROVED REPORT Exam: Resting ECG Reason for Exam: Dizziness Patient Location: E HR:55 bpm ECG Measurements Heart Rate 55 AXIS UT 146 P 63 QRSd 94 QRS 73 QT 469 T66 QTc 439 Conclusion Sinus bradycardia...rate< 60 Ventricular premature complex...V complex w/ short R-R interval Probable left ventricular hypertrophy...multiple LVH criteria sinus rhtyhm, normal axis, normal intevals, PVC, LVH I have reviewed and I agree with the emergency room physician's ECG interpretation. Electronically signed by: <Electronically signed by Kylah Nunez M.D. in [place]> 05/09/23 0823 Cosigned by: Echocardiogram Summary: Patient Name: Marisa Huerta Unit #: [id number] Loc: DI Ordering Provider: Brenda Matias NP Status: REG [facility] Primary Care Provider: Brenda Matias NP Date of Exam: 12/14/22 Sex: F Admission Date: 12/14/22 : 1960 Age: 62 APPROVED REPORT EXAM: Comprehensive 2D, Doppler, and color-flow Echocardiogram Patient Location: Out-Patient Assurance Services Manager Health Care: Juan Jeffers RDCS (AE) Indications: sharp CP intermittently Conclusion Normal left ventricular wall thickness and chamber size. Ejection fraction is 60 to 65%. Wall motion is normal Normal right ventricular size and systolic function Both atria are normal in size There is no structural or hemodynamically significant valvular disease Wall motion Left Ventricle The left ventricle is normal size. Left ventricular systolic function is normal. The left ventricular ejection fraction is within the normal range. There is normal left ventricular wall thickness. There is normal LV segmental wall motion. There is no ventricular septal defect visualized. LVEF is 60-65%. Right Ventricle The right ventricle is normal size. The right ventricular systolic function is normal. The RVSP is 25.1 mmHg. Atria The left atrium size is normal. The right atrium size is normal. Aortic Valve The aortic valve is normal in structure. Aortic valve is trileaflet. There is no aortic valvular stenosis. No aortic regurgitation is present. Mitral Valve The mitral valve is normal in structure. No evidence of mitral valve stenosis. There is no mitral valve regurgitation noted. Tricuspid Valve The tricuspid valve is normal in structure. There is no tricuspid valve stenosis. There is no tricuspid valve regurgitation noted. Pulmonic Valve The pulmonary valve is normal in structure. There is no pulmonic valvular stenosis. There is no pulmonic valvular regurgitation. Great Vessels The aortic root is normal in size. The ascending aorta is normal Aortic arch is normal in caliber. IVC is normal in size and collapses >50% with inspiration. Pericardium There is no pericardial effusion. 2D Dimensions IVSD d PLAX 0.93 cm F: 0.6-1.0Ao Root d 3.14 cm F: 2.7 - 3.3 LVPW d PLAX 0.86 cm F: 0.6 - 1.0Ao Asc Diam d 3.28 cm F: 2.3 - 3.1 LVID d PLAX 4.42 cm F: 3.8 - 5.2 LVDs 2.87 cm F: 2.2 - 3.5 LV EF Teichholz 64.5 % FS35.03 % LV EDV (Teich)88.5 mL LV ESV (Teich)31.4 mL Stroke Vol Index (Teich)35.02 M-Mode TAPSE 2.73 cm (M/F) >1.7 LV Volumes - Method of Disks (Schultz's) Single Plane 2D LV VolumesBiplane 2D LV Volumes LV EDV A4C57.3 mLLV EDV BP66.11 mL F: 46 - 106 LV ESV A4C22.6 mLLV ESV BP23.4 mL LVEF(%) A4C60.6 %LVEF(%) BP64.63 % F: 54 - 74 LV EDV A2C66.0 mLLV EDV BP Index40.55 mL/m2 F: 29 - 61 LV ESV A2C23.6 mLSV BP LVEF(%) A2C64.2 %SV Index LA Volume LA Length A4C3.8 cmLA Length A2C LA Area A4C s 9.04 cm2LA Area A2C s LA Vol A4C A-L18.13 mLLA Vol A2C A-LLA Vol Biplane A-L LA Vol A4C MOD17.2 mLLA Vol A2C MODLA Vol BP MOD RA Volume RA Area A4C6.3 cm2RA ESV A4C (A-L)10.9mLRA Vol/BSA A4C A-L RA Length A4C3.1 cmRA ESV A4C (MOD)10.5mL LV Diastology MV E' medial0.105 (>0.07 m/s)MV E Vmax 0.87 (0.4-1.3 m/s) MV E/E' MED8.28 (<14)MV A Vmax 0.90 (0.4-1.3 m/s) MV E' lateral0.101 (>0.1 m/s)E/A Ratio 1.0 MV E/E' LAT8.59 (<14) MV E' Average0.103 m/s MV E/E'(average)8.44 Aortic Valve AoV Vmax1.56 m/sLVOT Vmax 1.22 m/s AoV Peak Grad9.7 mmHgLVOT Peak Grad 5.9 mmHg AoV Area (Vmax)2.36 vv5NQVB VTI0.250 m AoV VTI0.339 mLVOT Mean Grad 3.3 mmHg AoV Mean William.1.10 m/sLVOT SV 75.48 mL AoV Mean Grad5.6 mmHgLVOT Diam s 1.95 cm AoV Area (VTI)2.22 cm2 Velocity Ratio 0.78 Mitral Valve MV DT 213 (160-240 msec) Pulmonary Valve PV Vmax 1.26 (0.5-1.5 m/s)RVOT Vmax 0.97 m/s PV Peak Grad 6.4 mmHgRVOT Peak Gr.3.7 mmHg PV Mean Vel0.88 m/sRVOT VTI0.197 m PV Mean Grad 3.5 mmHgRVOT Mean Gr.1.6 mmHg Tricuspid Valve RA Pressure 3.00 mmHgTR Vmax 2.35 m/s TR Peak Grad 22.0 mmHg RVSP (TR) 25.1 mmHg Ordered By: Brenda Matias NP CC: Dictated By: Kylah Nunez M.D. 12/14/221551 <Electronically signed by Kylah Nunez M.D. in [place]> 12/16/22829 Transcribed By: Kylah Nunez MD 12/14/221551 This is privileged, confidential information intended only for the provider named. Any use or distribution by any person other than this provider is strictly prohibited. If you receive this report in error, please notify us immediately at [phone] and return the original report to us at the address above. Thank-you. Carotid Artery Summary:: Patient Name: Marisa Huerta Unit #: [id number] Loc: DI Ordering Provider: Brenda Matias NP Status: REG CLI Primary Care Provider: Brenda Matias NP Date of Exam: 03/18/23 Sex: F Admission Date: 03/18/23 : 1960 Age: 63 Exam(s) US CAROTID EXAM: US CAROTID CLINICAL HISTORY: episodes change right vision,H53.9. TECHNIQUE: Ultrasound carotids performed using grayscale, color-flow, and spectral Doppler imaging. COMPARISON: No exams were available for comparison FINDINGS: RIGHT CAROTID ARTERY: Plaque: None. Velocity elevation: None. LEFT CAROTID ARTERY: Plaque: None. Velocity elevation: None. VERTEBRAL ARTERIES: Antegrade flow. Measurements: R Bulb: 50.4cm/s PS / 12cm/s ED R CCA: 61.3cm/s PS / 22.4cm/s ED R ECA: 53.1cm/s PS / 10.4cm/s ED R ICA Prox: 87cm/s PS / 34.5cm/s ED R ICA Mid: 108.6cm/s PS / 39.5cm/s ED R ICA Distal: 95.9cm/s PS /38.9cm/s ED R Vert: 61.6cm/s PS / 17.1cm/s ED R SVR: 1.8 R DVR: 1.8 L Bulb: 57.9cm/s PS / 19cm/s ED L CCA: 71.3cm/s PS / 23.4cm/s ED L ECA: 75.5cm/s PS / 13.2cm/s ED L ICA Prox: 80cm/s PS / 32.9cm/s ED L ICA Mid: 99.8cm/s PS / 38.6cm/s ED L ICA Distal: 82.3cm/s PS / 30.9cm/s ED L Vert: 61cm/s PS / 22.4cm/s ED L SVR: 1.4 L DVR: 1.6 IMPRESSION: No evidence for hemodynamically significant carotid stenosis. Criteria for Carotid Stenosis: Normal: ICA PSV <125 cm/s no plaque or intimal thickening is visible. <50% stenosis: ICA PSV <125 cm/s and plaque or intimal thickening is visible. 50-69% stenosis: ICA PSV is 125-250 cm/s and plaque is visible. >70% stenosis to near occlusion: ICA PSV >250 cm/s with visible plaque and luminal narrowing. DATA REPOSITORY: Ordered By: Brenda Matias NP CC: Dictated By: Mitch Alvarado M.D. 03/18/231355 <Electronically signed by Mitch Alvarado M.D. in [place]> 03/18/231355 Transcribed By: Mitch Alvarado 03/18/231355 This is privileged, confidential information intended only for the provider named. Any use or distribution by any person other than this provider is strictly prohibited. If you receive this report in error, please notify us immediately at [phone] and return the original report to us at the address above. Thank-you. Anesthesia Assessment and Plan Anesthesia History Personal History: No History of Anesthesia Complications Family History: No Family History of Anesthesia Complications Exercise Tolerance Exercise Tolerance: Metabolic Equivalents>4 Pertinent Negatives Pertinent Negatives: No Symptoms of GERD Cardiac & Pulmonary Exam Cardiac Exam: Normal S1/S2 Heart Sounds Pulmonary Exam: Clear Bilateral Breath Sounds Implantable Cardiac Device Does patient have a Pacemaker or an ICD?: No Airway Exam Known Difficult Airway: No Mallampati Class: 3 Mouth Opening: Normal (> 3cm) Thyromental Distance: Greater than 3 cm Neck Range of Motion: Full ROM Neck Circumference: Normal Teeth Condition: Normal Dentition and Generalized Poor Dentition ASA Classification ASA Score: ASA 2 Emergency Case?: No NPO Status NPO Status: NPO Clears >2 hours, Solids >8 hours Anesthesia Plan Resuscitation Status: Full Code Anesthesia Technique: General Anesthesia Airway Planned: Endotracheal Tube Monitors Used: Standard Monitors
[2024-07-19 11:06] VITALS: BMI 22.9
[2024-07-19] MEDS: ceFAZolin 2 GM/50 ML BAG IVPB (11:31)
[2024-07-19] MEDS: Omnipaque 300 MG/ML 50 ML BTL (11:40)
[2024-07-19] MEDS: Lidocaine 2% Jelly 6 ML SYR (11:40)
--- NOTE | 2024-07-19 11:43 | PAPNONF_PTH ---
PATIENT: Marisa Huerta LOC: [facility] U#:[id number] AGE/SX: 64/F ROOM: RE07/19/[address]: Bereket Forrester MD : 1960 BED: DIS: 07/19/2024 SPEC #: [id number] RECD: 07/19/24 13:15 STATUS: DENIA REKarla #: [id number] TAYLOR: 07/19/24 11:[address]: Bereket Forrester DEPT: [facility] Cytology RECD BY: Earnestine Nice ENTERED: 07/19/24 13:16 SP TYPE: ALINE RAMIREZ DR: Trey Pérez MD Tissues: 1 - BODY FLUID CYTO(SPUTUM/URINE)[facility] Procedures: BODY FLUID CYTO(URINE/SPUTUM) Comments: [id number] (TV = 70 ml, 30 ml CYTOLYT ADDED) (REFRIGERATED)
--- NOTE | 2024-07-19 11:55 | W.PM.DSUDISC ---
Date of service: 07/19/24 Discharge Plan Disposition Patient Disposition: Home Condition: Stable Discharge Details Reason For Visit: cystoscopy Attending Provider: Bereket Forrester Primary Care Provider: Trey Pérez Home Meds and New Rx's Prescriptions: No Action losartan 100 mg tablet 100 mg PO DAILY Qty: 90 3RF metoprolol succinate 25 mg tablet extended release 24 hr 25 mg PO QPM Qty: 90 3RF naproxen 250 mg tablet 250 mg PO BID PRN omeprazole 20 mg capsule,delayed release(DR/EC) 20 mg PO BID PRN (Reason: reflux) Qty: 60 1RF estradiol 0.01 % (0.1 mg/gram) cream 1 g vaginal .COMPLEX Qty: 42.5 6RF Rx Instructions: 1 g vaginal daily for 2 weeks then twice weekly; clobetasol 0.05 % ointment 1 applic topical BID Qty: 45 6RF Rx Instructions: tiny amount to vulva twice daily x1 month,daily for 1 month then twice weekly Discharge Instructions Additional Instructions: Followup 1 to 2 weeks to review cytology results - telehealth appt OK Stand Alone Forms: Anesthesia Discharge Inst., [facility] Atiya Munoz ([facility]) Activity:: Activity as Tolerated Shower/Bathe:: 24 hours Diet:: As Tolerated Discharge Orders Discharge Orders: Discharge Order (Routine); Ordered 07/19/24 Ordered By: Bereket Forrester DS: Diagnosis Discharge Diagnosis (1) Hematuria, microscopic: Status: Acute
--- NOTE | 2024-07-19 11:59 | DI.RAD_ITS ---
Exam(s) XR RETROGRADE IN OR EXAM: XR RETROGRADE IN OR CLINICAL HISTORY: LEFT KIDNEY STONE. TECHNIQUE: 2D digital imaging was performed. COMPARISON: No exams were available for comparison FINDINGS: Fluoroscopy was provided during urologic procedure. See procedure report for details. Fluoroscopy time 25 seconds IMPRESSION: Radiation exposure index/cumulative dose:Pattier= 2.9939mGy DATA REPOSITORY: RADIATION DOSE DELIVERED:
--- NOTE | 2024-07-19 11:59 | ROE_ITS ---
Operative Note Operative Note PRE-OP DIAGNOSIS: microscopic hematuria POST-OP DIAGNOSIS: same PROCEDURE: cystoscopy with bilateral retrograde pyelogram SURGEON: Bereket Forrester ANESTHESIA TYPE: Local By Surgeon and General LMA/ETT Refer to Anesthesia Record ESTIMATED BLOOD LOSS: 5 PATHOLOGY: other (urine for cytology) COMPLICATIONS: None Patient was transported to: PACU Patient's condition: stable Implants: none Indications: This is a 64-year-old woman who has a history of gross hematuria, left flank pain and discomfort when voiding. Their initial evaluation included a CT scan which showed no solid renal mass and no obvious stones. She presents now for cystoscopy, possible transurethral resection of bladder tumor, bilateral retrograde pyelogram and possible stone manipulation to complete her hematuria workup. Findings: No filling defects in the ureter No papillary or nodular mass in the bladder Procedure Description: The patient was given preoperative antibiotics and brought to the operating room on 07/19/2024. After successful induction of general anesthesia, she was placed in the dorsal lithotomy position. Her genitalia was prepped and draped. 2% Xylocaine jelly was instilled into the urethra. A 22 [place] rigid cystoscope was passed through the urethra into the bladder. Urine was collected and sent to the lab for cytology. The bladder was then inspected using both a 30 and 70 degree lens. Both ureteral orifices appeared normal. No blood was seen coming from either side. The remainder of the bladder appeared smooth-walled with no papillary or nodular lesions. We then utilized the 30 degree lens to perform bilateral retrograde pyelograms. Each orifice was cannulated with a 5 [place]er access catheter. A retrograde pyelogram was performed by injecting Omnipaque through the access catheter under fluoroscopic guidance. The right ureter and collecting system appeared normal. The left ureter and left upper and midpole calyces appeared normal as well. The lower pole calyx did not fill as well with contrast, but no abnormalities had been identified previously on CT scan. The left ureter drained promptly with no persistent contrast or persistent filling defects. Based on today's examination, I do not find any obvious evidence of bladder tumor or ureteral stones. If her urine cytology is abnormal, we may need to do a flexible ureteroscopy to look for upper tract lesions. The patient tolerated this procedure well with no complications. She was taken to the recovery room in stable condition. Date of Procedure: 07/19/24
[2024-07-19 12:08] VITALS: BP 131/69; PULSE 55; RESP 17; TEMP 36.3; O2SAT 97
[2024-07-19 12:11] VITALS: BP 138/72; PULSE 52; RESP 16; TEMP 36.3; O2SAT 100
[2024-07-19 12:18] VITALS: BP 147/66; PULSE 51; RESP 16; TEMP 36.3; O2SAT 100
[2024-07-19 12:24] VITALS: BP 137/62; PULSE 48; RESP 19; TEMP 36.2; O2SAT 100
[2024-07-19 12:45] VITALS: BP 144/82; PULSE 42; RESP 18; TEMP 36.5; O2SAT 99
[2024-07-19] MEDS: Phenazopyridine 200 MG TAB PO (12:54)
--- NOTE | 2024-07-19 15:20 | W.ANESPOSTOP ---
Postoperative Evaluation Date, Time and Location Date Performed: 07/19/24 Time Performed: 12:40 Patient Location: Day Surgery Unit Vital Signs Most Recent Imported Vital Signs: Most Recent Vital Signs Temp Pulse Resp BP Pulse Ox 36.5 C 42 L 18 144/82 H 99 07/19/24 12:45 07/19/24 12:45 07/19/24 12:45 07/19/24 12:45 07/19/24 12:45 Pain Score Most Recent Pain Score: Most Recent Pain Score Pain Level 0 07/19/24 12:18 Assessment Mental Status: Awake (Alert & Oriented to Patient Baseline) Airway and Respiratory Function: Patent airway with normal (patient baseline) respiratory exam Cardiovascular Function: Hemodynamically Stable Hydration Status: Adequately Hydrated Nausea & Vomiting: No Nausea or Vomiting Pain: Pt. Denies Any Pain Peripheral Nerve Block: Patient did not receive a nerve block
== END 2024-07-19 13:04 | disposition home or self-care (01) ==
PROVIDERS: PCP Family Medicine; Visit Provider Urology
PROC: (CPT 52005; principal; 2024-07-19 10:00)
DX: R31.29 Other microscopic hematuria (principal); I10 Essential (primary) hypertension; R82.89 Other abnormal findings on cytological and histological examination of urine
CPT/HCPCS: 52005; 74420; 88104; J0131; J0690; J1100; J2003; J2405; J2704; Q9967

== ENCOUNTER 2024-08-27 07:27 | Day surgery (SDC) | payer BC, SELFPAY ==
[2024-08-27 07:47] VITALS: BP 148/75; PULSE 52; RESP 16; TEMP 36.6; O2SAT 98
[2024-08-27 07:52] VITALS: BMI 22.5
--- NOTE | 2024-08-27 07:52 | W.ANESPRE ---
General Info Date of Service Date Performed: 08/27/24 Height: 5 ft 3.5 in Weight: 58.6 kg Body Mass Index (BMI): 22.5 Surgical Procedure: Operation Date: 08/27/24 08:55 Proposed Procedure Side Surgeon p Cystoscopy/Laser/Retrograde/Ureteroscopy/ Possible Biopsy Bilateral Bereket Forrester MD Meds Allergies and Home Medications Allergies Allergy/AdvReac Type Severity Reaction Status Date / Time metronidazole (From Metrogel) AdvReac Hives Verified 08/27/24 07:46 Home Medication ?Medication ?Instructions ?Recorded naproxen 250 mg tablet 250 mg PO BID PRN 01/11/23 clobetasol 0.05 % topical ointment 1 applic topical BID 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 #45 grams estradiol 0.01% (0.1 mg/gram) 1 g vaginal .COMPLEX #42.5 grams 04/12/23 vaginal cream losartan 100 mg tablet 100 mg PO DAILY #90 tabs 02/28/24 omeprazole 20 mg capsule,delayed 20 mg PO BID PRN reflux #60 caps 07/04/24 release amlodipine 5 mg tablet 5 mg PO BID #180 tabs 08/23/24 ondansetron 8 mg disintegrating 8 mg PO Q8H PRN nausea and 08/23/24 tablet vomiting #30 tabs Current Visit Medications: Current Medications Generic Name Dose Route Start Last Admin Trade Name Freq PRN Reason Stop Dose Admin Ringer's Solution 1,000 mls @ 80 mls/hr 08/27/24 06:00 IV 08/27/24 23:59 INFUSION JESSIE Cefazolin Sodium/Dextrose 2 gm in 50 mls @ 100 mls/hr 08/27/24 06:00 Ancef Duplex IVPB 08/27/24 23:59 PREOP JESSIE IV Miscellaneous Supplies 1 each 08/27/24 06:00 Iv Access IV 08/27/24 23:59 DIRECTED JESSIE Sodium Chloride 0 ml 08/27/24 06:00 Normal Saline Flush 10 Ml Syr IV 08/27/24 23:59 PRN PRN Sodium Chloride 0 ml 08/27/24 06:00 Normal Saline 10 Ml Vial IJ 08/27/24 23:59 DIRECTED PRN Sterile Water 0 ml 08/27/24 06:00 Water,Injection,Sterile 10 Ml Vial IJ 08/27/24 23:59 DIRECTED PRN PFSH Active Problems Active Problems: Problem Status Onset Code Bradycardia with 31-40 beats per minute Acute R00.1 Flank pain Acute R10.9 Hematuria Acute R31.9 HTN (hypertension) Chronic I10 Dysphagia Acute R13.10 Acid reflux Chronic K21.9 Systolic murmur Acute R01.1 Dysuria Acute R30.0 UTI (urinary tract infection) Acute N39.0 Rib pain on left side Acute R07.81 Vaginal dryness Acute N89.8 History of female sterilization Chronic Z98.890 Lichen sclerosus et atrophicus of the vulva Acute N90.4 Medical History Medical History COVID (~03/19/24) Surgical History Surgical History History of esophagogastroduodenoscopy (~12/2023) Tobacco Smoking/Tobacco Use Status: Never Passive smoking exposure: No Second hand exposure: No Alcohol Alcohol Intake: former Details: Monthly or less Substance Use Substance use: Daily Substance use type: marijuana Prental History History 2 Para 2 Hx # Term Pregnancies Multiple births Hx # Pregnancies Ectopic pregnancies AB induced Hx Number of Living Children AB spontaneous Vital Signs and Lab Results Vital Signs Most Recent Vital Signs in EMR: Most Recent Vital Signs Temp Pulse Resp BP Pulse Ox 36.6 C 52 L 16 148/75 H 98 08/27/24 07:47 08/27/24 07:47 08/27/24 07:47 08/27/24 07:47 08/27/24 07:47 Imaging and Studies Imaging and Studies Study information below may be from another EMR and interpreted by another provider. Please see original notes in EMR for more complete details. EKG Summary: EKG PATIENT NAME: Marisa Huerta UNIT #: [id number] ORDERING PROVIDER: Leonora García PRIMARY CARE PROVIDER: BRENDA MATIAS NP DATE/TIME OF SERVICE: 05/05/2310 : 1960 PERFORMING LOCATION: ER APPROVED REPORT Exam: Resting ECG Reason for Exam: Dizziness Patient Location: E HR:55 bpm ECG Measurements Heart Rate 55 AXIS CO 146 P 63 QRSd 94 QRS 73 QT 469 T66 QTc 439 Conclusion Sinus bradycardia...rate< 60 Ventricular premature complex...V complex w/ short R-R interval Probable left ventricular hypertrophy...multiple LVH criteria sinus rhtyhm, normal axis, normal intevals, PVC, LVH <Electronically signed by Randall Smith M.D. in OV> E-Sign Date: 05/06/23 E-Sign Time: 1503 ADDENDUM APPROVED REPORT Exam: Resting ECG Reason for Exam: Dizziness Patient Location: E HR:55 bpm ECG Measurements Heart Rate 55 AXIS CO 146 P 63 QRSd 94 QRS 73 QT 469 T66 QTc 439 Conclusion Sinus bradycardia...rate< 60 Ventricular premature complex...V complex w/ short R-R interval Probable left ventricular hypertrophy...multiple LVH criteria sinus rhtyhm, normal axis, normal intevals, PVC, LVH I have reviewed and I agree with the emergency room physician's ECG interpretation. Electronically signed by: <Electronically signed by Kylah Nunez M.D. in OV> 05/09/23 0823 Cosigned by: Echocardiogram Summary: Patient Name: Marisa Huerta Unit #: [id number] Loc: DI Ordering Provider: Brenda Matias NP Status: REG [facility] Primary Care Provider: Brenda Matias NP Date of Exam: 12/14/22 Sex: F Admission Date: 12/14/22 : 1960 Age: 62 APPROVED REPORT EXAM: Comprehensive 2D, Doppler, and color-flow Echocardiogram Patient Location: Out-Patient Rigger Up: Juan Jeffers RDCS (AE) Indications: sharp CP intermittently Conclusion Normal left ventricular wall thickness and chamber size. Ejection fraction is 60 to 65%. Wall motion is normal Normal right ventricular size and systolic function Both atria are normal in size There is no structural or hemodynamically significant valvular disease Wall motion Left Ventricle The left ventricle is normal size. Left ventricular systolic function is normal. The left ventricular ejection fraction is within the normal range. There is normal left ventricular wall thickness. There is normal LV segmental wall motion. There is no ventricular septal defect visualized. LVEF is 60-65%. Right Ventricle The right ventricle is normal size. The right ventricular systolic function is normal. The RVSP is 25.1 mmHg. Atria The left atrium size is normal. The right atrium size is normal. Aortic Valve The aortic valve is normal in structure. Aortic valve is trileaflet. There is no aortic valvular stenosis. No aortic regurgitation is present. Mitral Valve The mitral valve is normal in structure. No evidence of mitral valve stenosis. There is no mitral valve regurgitation noted. Tricuspid Valve The tricuspid valve is normal in structure. There is no tricuspid valve stenosis. There is no tricuspid valve regurgitation noted. Pulmonic Valve The pulmonary valve is normal in structure. There is no pulmonic valvular stenosis. There is no pulmonic valvular regurgitation. Great Vessels The aortic root is normal in size. The ascending aorta is normal Aortic arch is normal in caliber. IVC is normal in size and collapses >50% with inspiration. Pericardium There is no pericardial effusion. 2D Dimensions IVSD d PLAX 0.93 cm F: 0.6-1.0Ao Root d 3.14 cm F: 2.7 - 3.3 LVPW d PLAX 0.86 cm F: 0.6 - 1.0Ao Asc Diam d 3.28 cm F: 2.3 - 3.1 LVID d PLAX 4.42 cm F: 3.8 - 5.2 LVDs 2.87 cm F: 2.2 - 3.5 LV EF Teichholz 64.5 % FS35.03 % LV EDV (Teich)88.5 mL LV ESV (Teich)31.4 mL Stroke Vol Index (Teich)35.02 M-Mode TAPSE 2.73 cm (M/F) >1.7 LV Volumes - Method of Disks (Schultz's) Single Plane 2D LV VolumesBiplane 2D LV Volumes LV EDV A4C57.3 mLLV EDV BP66.11 mL F: 46 - 106 LV ESV A4C22.6 mLLV ESV BP23.4 mL LVEF(%) A4C60.6 %LVEF(%) BP64.63 % F: 54 - 74 LV EDV A2C66.0 mLLV EDV BP Index40.55 mL/m2 F: 29 - 61 LV ESV A2C23.6 mLSV BP LVEF(%) A2C64.2 %SV Index LA Volume LA Length A4C3.8 cmLA Length A2C LA Area A4C s 9.04 cm2LA Area A2C s LA Vol A4C A-L18.13 mLLA Vol A2C A-LLA Vol Biplane A-L LA Vol A4C MOD17.2 mLLA Vol A2C MODLA Vol BP MOD RA Volume RA Area A4C6.3 cm2RA ESV A4C (A-L)10.9mLRA Vol/BSA A4C A-L RA Length A4C3.1 cmRA ESV A4C (MOD)10.5mL LV Diastology MV E' medial0.105 (>0.07 m/s)MV E Vmax 0.87 (0.4-1.3 m/s) MV E/E' MED8.28 (<14)MV A Vmax 0.90 (0.4-1.3 m/s) MV E' lateral0.101 (>0.1 m/s)E/A Ratio 1.0 MV E/E' LAT8.59 (<14) MV E' Average0.103 m/s MV E/E'(average)8.44 Aortic Valve AoV Vmax1.56 m/sLVOT Vmax 1.22 m/s AoV Peak Grad9.7 mmHgLVOT Peak Grad 5.9 mmHg AoV Area (Vmax)2.36 wh4ACPQ VTI0.250 m AoV VTI0.339 mLVOT Mean Grad 3.3 mmHg AoV Mean William.1.10 m/sLVOT SV 75.48 mL AoV Mean Grad5.6 mmHgLVOT Diam s 1.95 cm AoV Area (VTI)2.22 cm2 Velocity Ratio 0.78 Mitral Valve MV DT 213 (160-240 msec) Pulmonary Valve PV Vmax 1.26 (0.5-1.5 m/s)RVOT Vmax 0.97 m/s PV Peak Grad 6.4 mmHgRVOT Peak Gr.3.7 mmHg PV Mean Vel0.88 m/sRVOT VTI0.197 m PV Mean Grad 3.5 mmHgRVOT Mean Gr.1.6 mmHg Tricuspid Valve RA Pressure 3.00 mmHgTR Vmax 2.35 m/s TR Peak Grad 22.0 mmHg RVSP (TR) 25.1 mmHg Ordered By: Brenda Matias NP CC: Dictated By: Kylah Nunez M.D. 12/14/221551 <Electronically signed by Kylah Nunez M.D. in [place]> 12/16/22 4590 Transcribed By: Kylah Nunez MD 12/14/221551 This is privileged, confidential information intended only for the provider named. Any use or distribution by any person other than this provider is strictly prohibited. If you receive this report in error, please notify us immediately at [phone] and return the original report to us at the address above. Thank-you. Carotid Artery Summary:: Patient Name: Marisa Huerta Unit #: [id number] Loc: DI Ordering Provider: Brenda Matias NP Status: REG CLI Primary Care Provider: Brenda Matias NP Date of Exam: 03/18/23 Sex: F Admission Date: 03/18/23 : 1960 Age: 63 Exam(s) US CAROTID EXAM: US CAROTID CLINICAL HISTORY: episodes change right vision,H53.9. TECHNIQUE: Ultrasound carotids performed using grayscale, color-flow, and spectral Doppler imaging. COMPARISON: No exams were available for comparison FINDINGS: RIGHT CAROTID ARTERY: Plaque: None. Velocity elevation: None. LEFT CAROTID ARTERY: Plaque: None. Velocity elevation: None. VERTEBRAL ARTERIES: Antegrade flow. Measurements: R Bulb: 50.4cm/s PS / 12cm/s ED R CCA: 61.3cm/s PS / 22.4cm/s ED R ECA: 53.1cm/s PS / 10.4cm/s ED R ICA Prox: 87cm/s PS / 34.5cm/s ED R ICA Mid: 108.6cm/s PS / 39.5cm/s ED R ICA Distal: 95.9cm/s PS /38.9cm/s ED R Vert: 61.6cm/s PS / 17.1cm/s ED R SVR: 1.8 R DVR: 1.8 L Bulb: 57.9cm/s PS / 19cm/s ED L CCA: 71.3cm/s PS / 23.4cm/s ED L ECA: 75.5cm/s PS / 13.2cm/s ED L ICA Prox: 80cm/s PS / 32.9cm/s ED L ICA Mid: 99.8cm/s PS / 38.6cm/s ED L ICA Distal: 82.3cm/s PS / 30.9cm/s ED L Vert: 61cm/s PS / 22.4cm/s ED L SVR: 1.4 L DVR: 1.6 IMPRESSION: No evidence for hemodynamically significant carotid stenosis. Criteria for Carotid Stenosis: Normal: ICA PSV <125 cm/s no plaque or intimal thickening is visible. <50% stenosis: ICA PSV <125 cm/s and plaque or intimal thickening is visible. 50-69% stenosis: ICA PSV is 125-250 cm/s and plaque is visible. >70% stenosis to near occlusion: ICA PSV >250 cm/s with visible plaque and luminal narrowing. DATA REPOSITORY: Ordered By: Brenda Matias NP CC: Dictated By: Mitch Alvarado M.D. 03/18/23 1356 <Electronically signed by Mitch Alvarado M.D. in OV> 03/18/231355 Transcribed By: Mitch Alvarado 03/18/231355 This is privileged, confidential information intended only for the provider named. Any use or distribution by any person other than this provider is strictly prohibited. If you receive this report in error, please notify us immediately at [phone] and return the original report to us at the address above. Thank-you. Anesthesia Assessment and Plan Anesthesia History Personal History: No History of Anesthesia Complications Family History: No Family History of Anesthesia Complications Exercise Tolerance Exercise Tolerance: Metabolic Equivalents>4 Pertinent Negatives Pertinent Negatives: No Symptoms of GERD Cardiac & Pulmonary Exam Cardiac Exam: Normal S1/S2 Heart Sounds Pulmonary Exam: Clear Bilateral Breath Sounds Implantable Cardiac Device Does patient have a Pacemaker or an ICD?: No Airway Exam Known Difficult Airway: No Mallampati Class: 3 Mouth Opening: Normal (> 3cm) Thyromental Distance: Greater than 3 cm Neck Range of Motion: Full ROM Neck Circumference: Normal Teeth Condition: Normal Dentition and Generalized Poor Dentition ASA Classification ASA Score: ASA 2 Emergency Case?: No NPO Status NPO Status: NPO Clears >2 hours, Solids >8 hours Anesthesia Plan Resuscitation Status: Full Code Anesthesia Technique: General Anesthesia Airway Planned: LMA Monitors Used: Standard Monitors
[2024-08-27] MEDS: Lactated Ringers 1,000 ML 80 ML IV (08:01)
--- NOTE | 2024-08-27 08:30 | W.PM.HP.N ---
Date of service: 08/27/24 Time of Service: 08:30 Assessment and Plan Assessment and plan (1) Hematuria: Status: Acute (2) Abnormal urine cytology: Status: Acute Assessment and plan: I did not visualize any abnormalities in the bladder on previous cystoscopy, but we will go ahead and take random bladder biopsies. When I did her previous retrograde pyelogram, the lower pole calyx on the left did not fill. I will plan to take a selective cytology and to do ureteroscopy on the left looking for any urothelial based lesions. History of Present Illness History of Present Illness Chief Complaint: abnormal urine cytology Narrative: This is a 64-year-old woman who was previously evaluated for hematuria. She had a CT scan with contrast that showed no solid renal masses. She did have a lower pole cyst on the left kidney. She then underwent cystoscopy and retrograde pyelogram. The only abnormality I identified was nonfilling of the left lower pole calyx on retrograde pyelogram. We obtained a urine cytology from the bladder and the cytology showed abnormal cells. She presents now for selective cytologies from the ureter, random biopsies from the bladder and ureteroscopy for visual inspection of the left lower pole collecting system mucosa. Review of Systems Narrative: No fevers or chills No vision change or dysphasia No diabetes or thyroid dysfunction No shortness of breath, cough or hemoptysis No chest pain or palpitations GERD. No nausea, vomiting, hepatitis, ulcers, jaundice No seizures, strokes or peripheral neuropathy No bleeding disorders or anemia No gout PFSH All Active Problems (Updated 08/27/24 @ 08:32 by Bereket Forrester MD) Abnormal urine cytology (Acute) Bradycardia with 31-40 beats per minute (Acute) Flank pain (Acute) Hematuria (Acute) HTN (hypertension) (Chronic) Dysphagia (Acute) Acid reflux (Chronic) Systolic murmur (Acute) Dysuria (Acute) UTI (urinary tract infection) (Acute) . EColi. Rx Nitrofurantoin Rib pain on left side (Acute) Vaginal dryness (Acute) 05/23/19. Unclear if sx 2/2 LS or primary menopausal vaginal atrophy 09/2020. Rx for vaginal E2 cream. History of female sterilization (Chronic) Lichen sclerosus et atrophicus of the vulva (Acute) 05/2019. Rx with clobetasol. Medical History COVID (~03/19/24) Surgical History History of esophagogastroduodenoscopy (~12/2023) Family History Uncle Cancer Aunt Cancer Paternal Grandfather Hypertension Social History Smoking/Tobacco Use Status: Never Second Hand Exposure: No Smoking risk assessment performed?: Yes Alcohol Intake: former Details: Monthly or less Drug use: Daily Substance use type: marijuana Counseling given: No Adopted: No Caregiver/Support person: No Foster care: No Household members: spouse, children and other Details: Lakesha. She is stepmom of his 3 kids Housing: house Number of Children: 4 number of grandchildren: 8 Communication Needs: Corrective Lenses Education Level: high school Do you need help understanding health information?: Never current occupation: [employer] Pets and animals: Yes (1) Pets and animals: dog(s) Sexually active: Yes Do you think of yourself as: straight/heterosexual Current gender identity: female What is your relationship status?: How often do you talk on the phone with friends or family?: three or more times per week How often do you get together with friends or relatives?: twice per week Do you belong to any clubs or organized social groups?: no Panel score (0-1 are the most socially isolated patients): 2 What type of physical activity do you participate in: walking Duration: 30-45 minutes/day Frequency: 5-6 times per week Debbie/Baptism: None Special debbie needs: No Seatbelt use: always Drive intox or ride w/intox armor reconnaissance vehicle driver: No Working smoke detector in home: Yes Fire extinguisher in home: Yes Carbon monox detector in home: Yes Do you feel safe at home: Yes Do you feel safe in your relationship?: Yes Female Reproductive History Menstrual control method: permanent sterilization Menopause type: natural Date of menopause: 05/22/17 History History 2 Para 2 Hx # Term Pregnancies Multiple births Hx # Pregnancies Ectopic pregnancies AB induced Hx Number of Living Children AB spontaneous Meds Allergies and Home Medications Allergies Allergy/AdvReac Type Severity Reaction Status Date / Time metronidazole (From Metrogel) AdvReac Hives Verified 08/27/24 07:46 Home Medications ?Medication ?Instructions ?Recorded ?Confirmed ?Type naproxen 250 mg tablet 250 mg PO BID PRN 01/11/23 08/23/24 History clobetasol 0.05 % topical ointment 1 applic topical BID vulvar lichen 04/12/23 08/27/24 Rx sclerosis #45 grams estradiol 0.01% (0.1 mg/gram) 1 g vaginal .COMPLEX #42.5 grams 04/12/23 08/27/24 Rx vaginal cream losartan 100 mg tablet 100 mg PO DAILY #90 tabs 02/28/24 08/27/24 Rx omeprazole 20 mg capsule,delayed 20 mg PO BID PRN reflux #60 caps 07/04/24 08/27/24 Rx release amlodipine 5 mg tablet 5 mg PO BID #180 tabs 08/23/24 08/27/24 Rx ondansetron 8 mg disintegrating 8 mg PO Q8H PRN nausea and 08/23/24 08/23/24 Rx tablet vomiting #30 tabs Exam Const General: cooperative and no acute distress Neck Neck: supple Resp Effort & Inspection: normal respiratory effort Auscultation: clear to auscultation bilaterally Cardio Rate: regular rate Rhythm: regular rhythm GI Palpation: soft and no masses Neuro General: patient alert, patient awake and patient oriented x3 Results Last Vital Signs Temp 36.6 C 08/27/24 07:47 Pulse 52 L 08/27/24 07:47 Resp 16 08/27/24 07:47 BP 148/75 H 08/27/24 07:47 Pulse Ox 98 08/27/24 07:47 Time Spent Time spent with Patient: <40 minutes Time was spent: other
--- NOTE | 2024-08-27 08:32 | KID_PTH ---
PATIENT: Marisa Huerta LOC: [facility] U#:[id number] AGE/SX: 64/F ROOM: RE08/27/[address]: Bereket Forrester MD : 1960 BED: DIS: 08/27/2024 SPEC #: [id number] RECD: 08/27/24 11:44 STATUS: DENIA REKarla #: [id number] TAYLOR: 08/27/24 08:[address]: Bereket Forrester DEPT: Surgical Specimen RECD BY: Susan Jackson ENTERED: 08/27/24 11:46 SP TYPE: BRENDON RAMIREZ DR: Trey Pérez MD Tissues: 1 - KIDNEY BIOPSY Procedures: GROSS AND MICRO LEVEL 4 IMMUNOPEROXIDASE STAIN Comments: [id number]
[2024-08-27] MEDS: ceFAZolin 2 GM/50 ML BAG IVPB (08:58)
--- NOTE | 2024-08-27 09:16 | PAPNONF_PTH ---
PATIENT: Marisa Huerta LOC: [facility] U#:[id number] AGE/SX: 64/F ROOM: RE08/27/[address]: Bereket Forrester MD : 1960 BED: DIS: 08/27/2024 SPEC #: [id number] RECD: 08/27/24 11:50 STATUS: ENT REQ #: [id number] TAYLOR: 08/27/24 09:[address]: Bereket Forrester DEPT: [facility] Cytology RECD BY: Susan Jackson ENTERED: 08/27/24 11:51 SP TYPE: ALINE RAMIREZ DR: Trey Pérez MD Tissues: 1 - BODY FLUID CYTO(SPUTUM/URINE)[facility] Procedures: BODY FLUID CYTO(URINE/SPUTUM) Comments: [id number] (SENT [facility] PER [facility]) (REFRIGERATED)
--- NOTE | 2024-08-27 09:17 | PAPNONF_PTH ---
PATIENT: Marisa Huerta LOC: [facility] U#:[id number] AGE/SX: 64/F ROOM: RE08/27/[address]: Bereket Forrester MD : 1960 BED: DIS: 08/27/2024 SPEC #: [id number] RECD: 08/27/24 11:47 STATUS: DENIA REKarla #: [id number] TAYLOR: 08/27/24 09:[address]: Bereket Forrester DEPT: [facility] Cytology RECD BY: Susan Jackson ENTERED: 08/27/24 11:49 SP TYPE: ALINE RAMIREZ DR: Trey Pérez MD Tissues: 1 - BODY FLUID CYTO(SPUTUM/URINE)[facility] Procedures: BODY FLUID CYTO(URINE/SPUTUM) Comments: [id number] (SENT FRESH PER [facility]) (REFRIGERATED)
[2024-08-27] MEDS: Lidocaine 2% Jelly 6 ML SYR (09:31)
[2024-08-27] MEDS: Omnipaque 300 MG/ML 50 ML BTL (09:32)
--- NOTE | 2024-08-27 09:45 | DI.RAD_ITS ---
Exam(s) XR RETROGRADE IN OR EXAM: XR RETROGRADE IN OR CLINICAL HISTORY: Hematuria, microscopic. TECHNIQUE: Fluoroscopy was provided for the referring physician for guidance with performing retrograde procedure. COMPARISON: CT CT ABDOMEN PELVIS W from 07/05/2024 XA XR RETROGRADE IN OR from 07/19/2024 FINDINGS: Please see procedure note for details. Fluoro time: 26.9 seconds RADIATION DOSE DELIVERED: Ka,r=3.1 mGy
--- NOTE | 2024-08-27 09:46 | W.PM.DSUDISC ---
Date of service: 08/27/24 Discharge Plan Disposition Patient Disposition: Home Condition: Stable Discharge Details Reason For Visit: ureteroscopy Attending Provider: Bereket Forrester Primary Care Provider: Trey Pérez Home Meds and New Rx's Prescriptions: No Action losartan 100 mg tablet 100 mg PO DAILY Qty: 90 3RF naproxen 250 mg tablet 250 mg PO BID PRN amlodipine 5 mg tablet 5 mg PO BID Qty: 180 0RF ondansetron 8 mg tablet,disintegrating 8 mg PO Q8H PRN (Reason: nausea and vomiting) Qty: 30 0RF omeprazole 20 mg capsule,delayed release(DR/EC) 20 mg PO BID PRN (Reason: reflux) Qty: 60 1RF estradiol 0.01 % (0.1 mg/gram) cream 1 g vaginal .COMPLEX Qty: 42.5 6RF Rx Instructions: 1 g vaginal daily for 2 weeks then twice weekly; clobetasol 0.05 % ointment 1 applic topical BID Qty: 45 6RF Rx Instructions: tiny amount to vulva twice daily x1 month,daily for 1 month then twice weekly Discharge Instructions Additional Instructions: You have a stent in your left ureter. While the stent is in place, you may notice increased urinary frequency, urgency and blood in the urine. Followup appt with me in 1 to 2 weeks to review all of the biopsies/specimen I took today Activity:: Activity as Tolerated Shower/Bathe:: 24 hours Diet:: As Tolerated Discharge Orders Discharge Orders: Discharge Order (Routine); Ordered 08/27/24 Ordered By: Bereket Forrester DS: Diagnosis Discharge Diagnosis (1) Hematuria: Status: Acute (2) Abnormal urine cytology: Status: Acute
[2024-08-27 09:49] VITALS: TEMP 36.4
--- NOTE | 2024-08-27 09:49 | W.PM.OP ---
Operative Note Operative Note PRE-OP DIAGNOSIS: Abnormal urine cytology POST-OP DIAGNOSIS: same left renal mass PROCEDURE: cystosvcopy, selective cytology from each ureter, left flexible ureteroscopy with biopsy of lower pole mass SURGEON: Bereket Forrester ANESTHESIA TYPE: Local By Surgeon and General LMA/ETT Refer to Anesthesia Record ESTIMATED BLOOD LOSS: 5 PATHOLOGY: other (1. cytology from right kidney 2. cytology from left kidney 3. Biopsy of left renal mass) COMPLICATIONS: None Patient was transported to: PACU Patient's condition: stable Implants: 4.8 Kosovan by 22 to 30 cm left ureteral stent Indications: This is a 64-year-old woman who has a history of gross hematuria. She was evaluated with a CT scan with contrast which demonstrated a lower pole cyst but no solid renal masses. I did a cystoscopy and retrograde pyelogram. The right ureter and collecting system appeared normal. On the left side, the upper pole calyces appeared normal but the lower pole calyx did not fill with contrast. A urine cytology taken from the bladder showed atypical cells. She returns now for selective cytologies and left ureteroscopy. Findings: papillary mass occupying entire lower pole calyx and extending into renal pelvis Procedure Description: The patient was given antibiotics and brought to the operating room on 08/27/2024. After successful induction of general anesthesia, she was placed in the dorsolithotomy position. Her genitalia was prepped and draped. 2% Xylocaine jelly was instilled into the urethra. 22 Kosovan rigid cystoscope was passed through the urethra into the bladder. The bladder was inspected with both the 30 and 70 degree lens. As with her recent cystoscopy, I did not identify any papillary or nodular lesions within the bladder. A 5 Kosovan access catheter was then passed through the cystoscope and maneuvered into the right ureteral orifice. The catheter was advanced up the ureter and urine was collected directly from the catheter. Irrigation with saline was performed. All the fluid collected from the right kidney was sent to pathology for cytology exam. We discarded the right sided catheter and used a new catheter to cannulate the left ureteral orifice. Again, urine from the left collecting system was obtained by gravity drainage and by irrigation with saline. The left sided specimen was sent to the lab for cytology exam. I then injected Omnipaque through the access catheter under fluoroscopic guidance. The left lower pole again did not fill on retrograde pyelogram. I passed a guidewire through the lumen of the access catheter and removed the catheter and the cystoscope. I then passed the dual-lumen catheter over the wire and positioned a second wire. We chose one of the wires as a working wire and the other as a safety wire. I passed a ureteral access sheath over the working wire leaving the safety wire in place. I then passed a flexible ureteroscope through the lumen of the access sheath up to the renal pelvis. A papillary mass could be seen filling the entire lower pole calyx and extending into the renal pelvis. I was able to grasp some of the tissue in a ZeroTip stone basket and extract the tissue. The extracted tissue was sent to pathology for permanent section. Because of expected bleeding from the left kidney after the biopsy, I elected to place a left ureteral stent. I chose a 4.8 Kosovan variable length stent and positioned it such that the proximal end was curled in the renal pelvis and the distal end was curled within the bladder. The positioning of the stent was confirmed both fluoroscopically and cystoscopically. All wires and ureteral sheaths were removed. The patient tolerated the procedure well with no complications. Date of Procedure: 08/27/24
[2024-08-27 10:04] VITALS: TEMP 36.6
[2024-08-27 10:18] VITALS: RESP 16
[2024-08-27] MEDS: fentaNYL 100 MCG/2 ML VIAL IVP (10:23)
[2024-08-27 10:39] VITALS: BP 152/71; PULSE 47; RESP 18; TEMP 36.3; O2SAT 97
[2024-08-27 11:10] VITALS: BP 168/79; PULSE 45; RESP 18; TEMP 36.3; O2SAT 98
[2024-08-27] MEDS: traMADol 50 MG TAB PO (11:14)
[2024-08-27] MEDS: Phenazopyridine 200 MG TAB PO (11:14)
--- NOTE | 2024-08-27 15:57 | W.ANESPOSTOP ---
Postoperative Evaluation Date, Time and Location Date Performed: 08/27/24 Time Performed: 12:30 Patient Location: Day Surgery Unit Vital Signs Most Recent Imported Vital Signs: Most Recent Vital Signs Temp Pulse Resp BP Pulse Ox 36.3 C L 45 L 18 168/79 H 98 08/27/24 11:10 08/27/24 11:10 08/27/24 11:10 08/27/24 11:10 08/27/24 11:10 Pain Score Most Recent Pain Score: Most Recent Pain Score Pain Level 4 08/27/24 12:30 Assessment Mental Status: Awake (Alert & Oriented to Patient Baseline) Airway and Respiratory Function: Patent airway with normal (patient baseline) respiratory exam Cardiovascular Function: Hemodynamically Stable Hydration Status: Adequately Hydrated Nausea & Vomiting: No Nausea or Vomiting Pain: Pain is tolerable per patient Peripheral Nerve Block: Patient did not receive a nerve block
== END 2024-08-27 12:45 | disposition home or self-care (01) ==
PROVIDERS: PCP Family Medicine; Visit Provider Urology
PROC: (CPT 52354; principal; 2024-08-27 08:45)
DX: R31.29 Other microscopic hematuria (principal); R82.89 Other abnormal findings on cytological and histological examination of urine
CPT/HCPCS: 52354; 52332; 88305; 74420; 88104; 88361; J0131; J0690; J1100; J1885; J2003; J2405; J2704; J3010; Q9967

== ENCOUNTER 2024-08-29 03:52 | Inpatient (IN) | payer BC, SELFPAY ==
[2024-08-29] VITALS (67 sets, daily range): BP systolic 85–160; BP diastolic 43–108; PULSE 47–89; RESP 17–20; TEMP 36.7–37.3; O2SAT 93–100
--- NOTE | 2024-08-29 | DI.US_ITS ---
Exam(s) US RENAL EXAM: US RENAL CLINICAL HISTORY: infective stone? hydronephrosis L side. TECHNIQUE: Grant scale imaging and color doppler were used. COMPARISON: CT CT ABDOMEN PELVIS W from 08/29/2024 FINDINGS: Right kidney: 11.0cm Echogenicity: Normal Hydronephrosis: No Cyst or mass: No Nephrolithiasis: No Left kidney: 10.9cm Echogenicity: Normal. On no focal abnormality is identified. Hydronephrosis: [id number] left hydronephrosis. The renal pelvis appears somewhat echogenic which could represent pyonephrosis. Pigtail of ureteral stent noted in renal pelvis. Cyst or mass: 5 centimeter cyst is noted at the lower pole of the left kidney. Nephrolithiasis: No Bladder:Normal. Both ureteral jets were visualized. Pigtail of ureteral stent noted. Prevoid vol:104 cc Postvoid vol:0 cc IMPRESSION: Negative moderate left hydronephrosis with increased echogenicity which could indicate pyonephrosis. DATA REPOSITORY:
--- NOTE | 2024-08-29 03:45 | DI.CT_ITS ---
Exam(s) CT ABDOMEN PELVIS W EXAM: CT ABDOMEN PELVIS W CLINICAL HISTORY: severe left flank pain, N/V, recent ureteral stent. TECHNIQUE: Imaging Protocol: Axial computed tomography images with coronal and sagittal reformatted images were created and reviewed CONTRAST MATERIAL: Intravenous: Omnipaque 350 Contrast volume:75 ml Oral: no COMPARISON: CT CT ABDOMEN PELVIS W from 07/05/2024 XA XR RETROGRADE IN OR from 07/19/2024 XA XR RETROGRADE IN OR from 08/27/2024 FINDINGS: ABDOMEN and PELVIS: Lung Bases: No acute findings. Liver: Normal density. No suspicious mass. Gallbladder and biliary tract: No radiodense calculus. No wall thickening or pericholecystic fluid. No biliary dilation. Pancreas: Normal density. No abnormal calcifications or inflammatory process. No evidence of mass. Spleen: Normal. Kidneys: A left ureteral stent has been placed. The upper pigtail is position within the renal pelvis. The lower pigtail is positioned in the urinary bladder. There is no significant perinephric stranding or stranding around along the course of the stent. There is delayed left nephrogram and mild to moderate left hydronephrosis. No stones are seen along the course of the ureter. A cyst again noted at the inferior pole of the left kidney. No suspicious masses seen. Adrenal glands: No masses seen. Vasculature: Abdominal aorta non-dilated. Soft tissues: Unremarkable. Bladder: No gross wall thickening. No calculi.No focal mass. Bowel: No obstruction. No bowel wall thickening. Appendix normal. Minimal diverticulosis Peritoneal cavity: No ascites. No focal collection. No mesenteric inflammatory response. No free air. Bones: Unremarkable for age. Reproductive organs: Unremarkable. Lymph nodes: No pathologically enlarged lymph nodes. IMPRESSION:: Mild to moderate left hydronephrosis and delayed left nephrogram despite presence of a left ureteral stent which appears appropriately positioned. No evidence of renal infarct or perinephric collection. RADIATION DOSE DELIVERED: 313.47mGy.cm Total DLP DATA REPOSITORY: All CT scans at this facility are submitted to the National Radiology Data Registry (NRDR) Dose Index Registry (DIR) with the [employer] (ACR). RADIATION OPTIMIZATION: All CT scans at this facility use at least one of these dose optimization techniques: automated exposure control; mA and/or kV adjustment per patient size (includes targeted exams where dose is matched to clinical indication); or iterative reconstruction.
[2024-08-29 04:09] LABS: Abs Immature Grans 0.08 10^3/uL (0.0-0.06); HCT 42.1 % (36.0-46.0); HGB 14.4 g/dL (11.2-15.7); Immature Grans % 0.4 %; MCH 31.9 pg (27.0-33.0); MCHC 34.2 % (32.0-36.0); MCV 93 fL (80-95); MPV 9.8 fL (8.0-11.0); Platelet Count 253 10^3/uL (130-400); RBC 4.51 10^6/uL (3.93-5.22); RDW 12.2 % (11.7-14.6); RDW-SD 42.4 fL; WBC 18.93 10^3/uL (4.4-10.8)
[2024-08-29] MEDS: Omnipaque 350 MG/ML 100 ML BTL IJ (04:09)
[2024-08-29] MEDS: Normal Saline Flush 10 ML SYR IVP ×4 (04:10→20:45)
[2024-08-29] MEDS: Normal Saline - Diluent 50 ML VIAL IJ (04:11)
--- NOTE | 2024-08-29 04:11 | ED.GENADUL_ITS ---
Discharge Plan Disposition Patient Disposition: Admit to [facility] Condition: Serious Discharge Details Clinical Impression: Hydronephrosis, Leukocytosis, Post surgical complication, Acute left flank pain Primary Care Provider: Brenda Estrada ED Provider: Rajani Leigh Home Meds and New Rx's Prescriptions: No Action losartan 100 mg tablet 100 mg PO DAILY Qty: 90 3RF naproxen 250 mg tablet 250 mg PO BID PRN amlodipine 5 mg tablet 5 mg PO BID Qty: 180 0RF ondansetron 8 mg tablet,disintegrating 8 mg PO Q8H PRN (Reason: nausea and vomiting) Qty: 30 0RF omeprazole 20 mg capsule,delayed release(DR/EC) 20 mg PO BID PRN (Reason: reflux) Qty: 60 1RF estradiol 0.01 % (0.1 mg/gram) cream 1 g vaginal .COMPLEX Qty: 42.5 6RF Rx Instructions: 1 g vaginal daily for 2 weeks then twice weekly; clobetasol 0.05 % ointment 1 applic topical BID Qty: 45 6RF Rx Instructions: tiny amount to vulva twice daily x1 month,daily for 1 month then twice weekly HPI General Mode of arrival: ambulatory . Date/Time Provider Initiated Documentation: 08/29/24 03:54 . Limitations to Documentation: no limitations . Information obtained by: patient and old records reviewed . HPI Narrative: 64yo F with hx HTN, POD #2 from cystoscopy with left renal biopsy and left ureteral stent placement presenting with severe left flank pain. Pain has been getting worse all day, became more severe about 6 hours ago. Taking tylenol without improvement. Has had nausea and vomiting for the past 6 hours, unable to keep down fluids or medications. No fevers, + chills. Some blood in her urine; no dysuria. No rash, abdominal pain, constipation, or other concerns. Related Data Home Medications ?Medication ?Instructions ?Recorded ?Confirmed naproxen 250 mg tablet 250 mg PO BID PRN 01/11/23 0 08/29/24 clobetasol 0.05 % topical ointment 1 applic topical BI D vulvar lichen 04/12/23 08/29/24 sclerosis #45 grams estradiol 0.01% (0.1 mg/gram) 1 g vaginal .COMPLEX #42 .5 grams 04/12/23 08/29/24 vaginal cream losartan 100 mg tablet 100 mg PO DAILY #90 tabs 09/1408/29/24 omeprazole 20 mg capsule,delayed 20 mg PO BID PRN refl ux #60 caps 07/04/24 08/29/24 release amlodipine 5 mg tablet 5 mg PO BID #180 tabs 08/29/24 ondansetron 8 mg disintegrating 8 mg PO Q8H PRN nausea and 08/23/24 08/29/24 tablet vomiting #30 tabs Previous Rx's ?Medication ?Instructions ?Recorded clobetasol 0.05 % topical ointment 1 applic topical BI D 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 #45 grams estradiol 0.01% (0.1 mg/gram) 1 g vaginal .COMPLEX #42 .5 grams 04/12/23 vaginal cream losartan 100 mg tablet 100 mg PO DAILY #90 tabs 09/14 omeprazole 20 mg capsule,delayed 20 mg PO BID PRN refl ux #60 caps 07/04/24 release amlodipine 5 mg tablet 5 mg PO BID #180 tabs ondansetron 8 mg disintegrating 8 mg PO Q8H PRN nausea and 08/23/24 tablet vomiting #30 tabs Allergies Allergy/AdvReac Type Severity Reaction Status Date / Time metronidazole (From Metrogel) AdvReac Hives Verified 08/29/24 04:00 General Stated Complaint: FlankPain KVNG: 3 Review of Systems Narrative: see HPI Exam Narrative Exam Narrative: General: Alert, appears to be in discomfort Head: Normocephalic, atraumatic Neck: Trachea midline, ?Neck supple. ENT: ?MMM.? Cardiac: ?RRR, no murmurs appreciated Resp: No respiratory distress. CTAB. Abd: ?Soft, non-distended, nontender. : ?No suprapubic tenderness. + CVA tenderness on left Extremities: ?No deformities.? No peripheral edema. Neurologic: GCS 15. ? Moves all extremities freely against gravity Course Vital Signs Vital signs: Vital Signs Temperature 37.1 C 08/29/24 03:55 Pulse 78 08/29/24 03:55 Respiratory Rate 18 08/29/24 03:55 Blood Pressure 156/78 H 08/29/24 03:55 Pulse Oximetry 99 08/29/24 03:55 Temperature 37.1 C 08/29/24 03:59 Pulse 78 08/29/24 03:59 Respiratory Rate 18 08/29/24 03:59 Blood Pressure 156/78 H 08/29/24 03:59 Blood Pressure Position Supine 08/29/24 03:59 Pulse Oximetry 99 08/29/24 03:59 Oxygen Delivery Method Room Air 08/29/24 03:59 Oxygen Flow Rate 0 08/29/24 03:55 Pain Level 8 08/29/24 03:59 Medical Decision Making 64yo F with hx HTN, bradycardia, POD #2 from cystoscopy with left renal biopsy and left ureteral stent placement presenting with severe left flank pain with associated N/V and chills. Hypertensive on arrival, HR in 70's (pts baseline HR in 40's on [facility] record review). Afebrile. Will start with tylenol & toradol for pain and zofran for nausea while awaiting results of workup. -Labs reviewed was below, CBC with marked leukocytosis to 18, CMP mild hypokalemia (oral replacement ordered), Mg normal, initial lactate 3.6 (will repeat after giving fluid bolus), UA not overtly infected. -With leukocytosis, recent urologic instrumentation, and relative tachycardia started on broad spectrum abx zosyn/zyvox and blood cultures sent. -CT independently reviewed; no free fluid on my view, radiology read with left hydroureteronephrosis. -Repeat lactate unchanged at 3.6 On reassessment patient reports pain has much improved, is now tolerable. Dr. Forrester not available today; did attempt to reach him without success. He will be back on service tomorrow. [facility] urology consulted and spoke with Dr. Nunez, discussed case. No emergent urologic intervention thought to be indicated provided stent is appropriately placed (VRAD addendum requested to clarify stent placement with addendum indicating proximal end in renal pelvis and distal end in bladder). Thought to be potentially obstructed d/t clot; advised observation for pain control and repeat labs tomorrow morning. On reassessment patient reporting pain has worsened; will add morphine. Discussed with [facility] hospitalist Dr. Dimas; patient accepted to medicine service. Awaiting admission orders and transfer to the floor. Medical Records Medical records reviewed: Yes I reviewed the patient's medical records. Imaging Data Radiologic Study: Imaging: CT Scan Radiologist's impression: IMPRESSION: 1. Left hydroureteronephrosis despite nephroureteral stent. Follow- up as clinically warranted. 2. Additional findings as above. Lab Data Lab results reviewed: Yes I reviewed the patient's lab results. Labs: 08/29/24 04:29 Urine - Reflex from Ua Urine Culture - Pending 08/29/24 04:44 Blood Blood Culture - Pending 08/29/24 04:35 Blood Blood Culture - Pending Laboratory Tests Range/Units 08/29/24 08/29/24 04:00 04:29 WBC (4.4-10.8) 10^3/uL 18.93 H RBC (3.93-5.22) 10^6/uL 4.51 Hgb (11.2-15.7) g/dL 14.4 Hct (36.0-46.0) % 42.1 MCV (80-95) fL 93 MCH (27.0-33.0) pg 31.9 MCHC (32.0-36.0) % 34.2 RDW (11.7-14.6) % 12.2 Plt Count (130-400) 10^3/uL 253 MPV (8.0-11.0) fL 9.8 Immature Gran % % 0.4 Neutrophils % % 84.5 Lymphocytes % % 6.7 Monocytes % % 7.9 Eosinophils % % 0.1 Basophils % % 0.4 Nucleated RBC % (0.0-0.3) % 0.0 Absolute Neutrophils (1.2-6.7) 10^3/uL 16.00 H Absolute Lymphocytes (1.2-3.4) 10^3/uL 1.27 Absolute Monocytes (0.1-0.8) 10^3/uL 1.50 H Absolute Eosinophils (0.0-0.7) 10^3/uL 0.02 Absolute Basophils (0.0-0.2) 10^3/uL 0.08 VBG Lactate (<or=2.0) mmol/L 3.6 H* Sodium (136-145) mmol/L 139 Potassium (3.5-5.1) mmol/L 3.1 L Chloride (98-107) mmol/L 100 Carbon Dioxide (21.0-32.0) mmol/L 26.4 Anion Gap (3-11) mmol/L 12.6 H BUN (7-18) mg/dL 20 H Creatinine (0.55-1.02) mg/dL 1.2 H Est GFR (CKD-EPI 2020) (mL/min/1.73m2) 51.18 Glucose (74-106) mg/dL 171 H Calcium (8.5-10.1) mg/dL 9.3 Magnesium (1.8-2.4) mg/dL 1.8 Total Bilirubin (0.2-1.0) mg/dL 0.7 AST (15-37) U/L 23 ALT (14-59) U/L 26 Alkaline Phosphatase (46-116) U/L 97 Total Protein (6.4-8.2) g/dL 7.9 Albumin (3.4-5.0) g/dL 4.5 Urine Color (Yellow) Red Urine Clarity (Clear) Cloudy Urine pH (5-8) 6.5 Ur Specific Viola (1.005-1.025) 1.015 Urine Protein (Neg-Trace) mg/dL 100 H Urine Ketones (Negative) mg/dL 40 H Urine Blood (Negative) Large H Urine Nitrite (Negative) Negative Urine Bilirubin (Negative) Negative Urine Urobilinogen (Up to 0.2) mg/dL 0.2 Ur Leukocyte Esterase (Negative) Small H Urine RBC (0-2) HPF >50 H Urine WBC (0-5) HPF Ur Epithelial Cells Not Applicable Urine Crystals Not Applicable Urine Bacteria Not Applicable Urine Mucus Not Applicable Ur Culture Indicated? Yes Urine Glucose (Negative) mg/dL 250 H PFSH All Active Problems (Updated 08/29/24 @ 07:52 by Rajani Leigh MD) Acute left flank pain (Acute) Post surgical complication (Acute) Leukocytosis (Acute) Hydronephrosis (Acute) Abnormal urine cytology (Acute) Bradycardia with 31-40 beats per minute (Acute) Flank pain (Acute) Hematuria (Acute) HTN (hypertension) (Chronic) Dysphagia (Acute) Acid reflux (Chronic) Systolic murmur (Acute) Dysuria (Acute) UTI (urinary tract infection) (Acute) . EColi. Rx Nitrofurantoin Rib pain on left side (Acute) Vaginal dryness (Acute) 05/23/19. Unclear if sx 2/2 LS or primary menopausal vaginal atrophy 09/2020. Rx for vaginal E2 cream. History of female sterilization (Chronic) Lichen sclerosus et atrophicus of the vulva (Acute) 05/2019. Rx with clobetasol. Medical History COVID (~03/19/24) Surgical History History of esophagogastroduodenoscopy (~12/2023) Family History Uncle Cancer Aunt Cancer Paternal Grandfather Hypertension Social History Smoking/Tobacco Use Status: Never Second Hand Exposure: No Smoking risk assessment performed?: Yes Alcohol Intake: former Details: Monthly or less Drug use: Daily Substance use type: marijuana Counseling given: No Adopted: No Caregiver/Support person: No Foster care: No Household members: spouse, children and other Details: Lakesha. She is stepmom of his 3 kids Housing: house Number of Children: 4 number of grandchildren: 8 Communication Needs: Corrective Lenses Education Level: high school Do you need help understanding health information?: Never current occupation: [employer] Pets and animals: Yes (1) Pets and animals: dog(s) Sexually active: Yes Do you think of yourself as: straight/heterosexual Current gender identity: female What is your relationship status?: How often do you talk on the phone with friends or family?: three or more times per week How often do you get together with friends or relatives?: twice per week Do you belong to any clubs or organized social groups?: no Panel score (0-1 are the most socially isolated patients): 2 What type of physical activity do you participate in: walking Duration: 30-45 minutes/day Frequency: 5-6 times per week Debbie/Yarsani: None Special debbie needs: No Seatbelt use: always Drive intox or ride w/intox warehouse delivery driver: No Working smoke detector in home: Yes Fire extinguisher in home: Yes Carbon monox detector in home: Yes Do you feel safe at home: Yes Do you feel safe in your relationship?: Yes Female Reproductive History Menstrual control method: permanent sterilization Menopause type: natural Date of menopause: 05/22/17 History History 2 Para 2 Hx # Term Pregnancies Multiple births Hx # Pregnancies Ectopic pregnancies AB induced Hx Number of Living Children AB spontaneous
[2024-08-29] MEDS: ACETAMINOPHEN 1,000 MG/100 ML BAG 400 MG IVPB ×3 (04:18→20:43)
[2024-08-29] MEDS: Ondansetron 4 MG/2 ML VIAL IVP ×2 (04:18→21:05)
[2024-08-29] MEDS: Ketorolac 15 MG/ML VIAL IVP (04:18)
[2024-08-29 04:25] LABS: ALT 26 U/L (14-59); AST 23 U/L (15-37); Albumin 4.5 g/dL (3.4-5.0); Alkaline Phosphatase 97 U/L (46-116); Anion Gap 12.6 mmol/L (3-11); BUN 20 mg/dL (7-18); Bilirubin, Total 0.7 mg/dL (0.2-1.0); CO2 26.4 mmol/L (21.0-32.0); Calcium 9.3 mg/dL (8.5-10.1); Chloride 100 mmol/L (98-107); Estimated GFR 51.18 (mL/min/1.73m2); Glucose 171 mg/dL (74-106); Magnesium 1.8 mg/dL (1.8-2.4); Potassium 3.1 mmol/L (3.5-5.1); Sodium 139 mmol/L (136-145); Total Protein 7.9 g/dL (6.4-8.2)
[2024-08-29] MEDS: Normal Saline 1,000 ML 1000 ML IV (04:40)
[2024-08-29] MEDS: PIPERACILLIN/TAZO 3.375 GM in Normal Saline 50 ML IVPB (04:41)
[2024-08-29] MEDS: LINEZOLID 600 MG/300 ML BAG 300 MG IVPB (04:41)
--- NOTE | 2024-08-29 05:00 | RT.EKG_ITS ---
APPROVED REPORT Exam: Resting ECG Reason for Exam: hypokalemia Patient Location: E HR:70 bpm ECG Measurements Heart Rate 70 AXIS PA 136 P 55 QRSd 80 QRS 60 QT 422 T 37 QTc 454 Conclusion Sinus rhythm...normal P axis, V-rate 60- [address] segment or T wave abnormalities to suggest occlusive AL
[2024-08-29 05:04] LABS: Glucose 250 mg/dL (Negative)
[2024-08-29 05:16] LABS: C & S Indicated? Yes; RBC >50 HPF (0-2)
--- NOTE | 2024-08-29 05:22 | DI.VRAD_ITS ---
Addendum created by Shavonne Rust MD on 08/29/2024 6:53:08 AM EDT: The proximal end of the nephroureteral stent is coiled in the renal pelvis. The distal end is coiled in the bladder. Initial report created on 08/29/2024 5:22:04 AM EDT: PROCEDURE INFORMATION: Exam: CT Abdomen And Pelvis With Contrast Exam date and time: 08/29/2024 4:20 AM Age: 64 years old Clinical indication: N/v recent ureteral stent, severe L flank pain TECHNIQUE: Imaging protocol: Computed tomography of the abdomen and pelvis with contrast. Radiation optimization: All CT scans at this facility use at least one of these dose optimization techniques: automated exposure control; mA and/or kV adjustment per patient size (includes targeted exams where dose is matched to clinical indication); or iterative reconstruction. Contrast material: OMNIPAQUE 350; Contrast volume: 75 ml; Contrast route: INTRAVENOUS (IV); COMPARISON: CT ABDOMEN PELVIS W 07/05/2024 8:29 AM FINDINGS: Liver: Low attenuation lesions in the liver too small to accurately characterize on CT. Gallbladder and biliary ducts: Distended gallbladder. Pancreas: No CT evidence for acute pancreatitis. Spleen: No splenomegaly. Adrenal glands: The adrenal thickening. Kidneys and ureters: Left renal cyst. Left nephroureteral stent. Left hydroureteronephrosis. Delayed left renal parenchymal enhancement as compared to the right. Stomach and bowel: Apparent gastric thickening commensurate with underdistention. No intestinal obstruction is evident. Colonic diverticula. Areas of apparent mural thickening in the colon commensurate with underdistention. Appendix: No evidence of appendicitis. Intraperitoneal space: No free air. Vasculature: Atherosclerotic changes in the aorta and its branches. Lymph nodes: Nonspecific mesenteric and retroperitoneal lymph nodes. Urinary bladder: No acute findings. Reproductive: No acute findings. Bones/joints: No pertinent acute abnormality seen. Soft tissues: No pertinent acute abnormality seen. IMPRESSION: 1. Left hydroureteronephrosis despite nephroureteral stent. Follow-up as clinically warranted. 2. Additional findings as above. Dictated and Authenticated by: Shavonne Rust MD. Orderin Lu Gerard MD
[2024-08-29] MEDS: Potassium Chloride Liquid 20 MEQ PKT 40 MEQ PO (05:42)
--- NOTE | 2024-08-29 10:12 | W.PM.HP.N ---
Date of service: 08/29/24 Time of Service: 10:12 Assessment and Plan Assessment and plan (1) UTI (urinary tract infection): Status: Acute Assessment and plan: WBC 18- not meeting sepsis criteria but lactacte #1 and #2 at 3.6- repeat normal As per UA On vancomycin and cefepime Urine and blood Cx pending (2) Hydroureteronephrosis: Status: Acute Assessment and plan: As per imaging Monitor I&O faust Renal US urology consult (3) VALERIE (acute kidney injury): Status: Acute Assessment and plan: IVFand labs in AM (4) Nausea & vomiting: Status: Acute Assessment and plan: zofran PRN (5) Acute left flank pain: Status: Acute Assessment and plan: Acetaminophen Morphine IVP PRN (6) Pain management: Status: Acute Assessment and plan: As above (7) On deep vein thrombosis (DVT) prophylaxis: Status: Acute Assessment and plan: On LMWH (8) Discharge planning issues: Status: Acute Assessment and plan: discharge home when medically ready Discussed with Dr. Dimas History of Present Illness History of Present Illness Chief Complaint: left flank pain Narrative: This 64 yo female patient with a past medical history of HNT, dyspahagia, GERD, UTI presented to the ED with complaint of left flank pain POD #2 for left ureteral stent placement. Work-up in the ED was positive for leukocytosis at 18, potassium at 3.1, Cr at 1.2 with BUN at 20. [facility] urology consultation inthe ED w/o recommendations for emergent urologic intervention provided that stent is appropriately placed. As per [facility] documentation stent was situated with proximal end in renal pelvis and distal end in bladder.; obstruction by clot not ruled out; The patient was admitted to the medical surgical floor by the hospitalist tima for observation for pain control and labs in AM. Full code status confirmed. Patient reported sudden unset of continuous pain left flank pain last night around 22:30, nausea, vomiting, chills, ongoing stable hematuria w/o clot since Tuesday. The patient denied dizziness, chest pain, diarrhea, dysuria. Review of Systems All systems reviewed & are unremarkable except as noted in HPI and below PFSH All Active Problems (Updated 08/29/24 @ 19:17 by Marisa Lubin APRN) VALERIE (acute kidney injury) (Acute) Discharge planning issues (Acute) Pain management (Acute) Nausea & vomiting (Acute) On deep vein thrombosis (DVT) prophylaxis (Acute) Hydroureteronephrosis (Acute) Severe sepsis (Acute) Acute left flank pain (Acute) Post surgical complication (Acute) Leukocytosis (Acute) Hydronephrosis (Acute) Abnormal urine cytology (Acute) Bradycardia with 31-40 beats per minute (Acute) Flank pain (Acute) Hematuria (Acute) HTN (hypertension) (Chronic) Dysphagia (Acute) Acid reflux (Chronic) Systolic murmur (Acute) Dysuria (Acute) UTI (urinary tract infection) (Acute) . EColi. Rx Nitrofurantoin Rib pain on left side (Acute) Vaginal dryness (Acute) 05/23/19. Unclear if sx 2/2 LS or primary menopausal vaginal atrophy 09/2020. Rx for vaginal E2 cream. History of female sterilization (Chronic) Lichen sclerosus et atrophicus of the vulva (Acute) 05/2019. Rx with clobetasol. Medical History COVID (~03/19/24) Surgical History History of esophagogastroduodenoscopy (~12/2023) Family History Uncle Cancer Aunt Cancer Paternal Grandfather Hypertension Social History Smoking/Tobacco Use Status: Never Second Hand Exposure: No Smoking risk assessment performed?: Yes Alcohol Intake: former Details: Monthly or less Drug use: Daily Substance use type: marijuana Counseling given: No Adopted: No Caregiver/Support person: No Foster care: No Household members: spouse, children and other Details: Lakesha. She is stepmom of his 3 kids Housing: house Number of Children: 4 number of grandchildren: 8 Communication Needs: Corrective Lenses Education Level: high school Do you need help understanding health information?: Never current occupation: [employer] Pets and animals: Yes (1) Pets and animals: dog(s) Sexually active: Yes Do you think of yourself as: straight/heterosexual Current gender identity: female What is your relationship status?: How often do you talk on the phone with friends or family?: three or more times per week How often do you get together with friends or relatives?: twice per week Do you belong to any clubs or organized social groups?: no Panel score (0-1 are the most socially isolated patients): 2 What type of physical activity do you participate in: walking Duration: 30-45 minutes/day Frequency: 5-6 times per week Debbie/Judaism: None Special debbie needs: No Seatbelt use: always Drive intox or ride w/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: No Working smoke detector in home: Yes Fire extinguisher in home: Yes Carbon monox detector in home: Yes Do you feel safe at home: Yes Do you feel safe in your relationship?: Yes Female Reproductive History Menstrual control method: permanent sterilization Menopause type: natural Date of menopause: 05/22/17 History History 2 Para 2 Hx # Term Pregnancies Multiple births Hx # Pregnancies Ectopic pregnancies AB induced Hx Number of Living Children AB spontaneous Meds Allergies and Home Medications Allergies Allergy/AdvReac Type Severity Reaction Status Date / Time metronidazole (From Metrogel) AdvReac Hives Verified 08/29/24 04:00 Home Medications ?Medication ?Instructions ?Recorded ?Confirmed ?Type naproxen 250 mg tablet 250 mg PO BID PRN 01/11/23 08/29/24 History clobetasol 0.05 % topical ointment 1 applic topical BID vulvar lichen 04/12/23 08/29/24 Rx sclerosis #45 grams estradiol 0.01% (0.1 mg/gram) 1 g vaginal .COMPLEX #42.5 grams 04/12/23 08/29/24 Rx vaginal cream losartan 100 mg tablet 100 mg PO DAILY #90 tabs 02/28/24 08/29/24 Rx omeprazole 20 mg capsule,delayed 20 mg PO BID PRN reflux #60 caps 07/04/24 08/29/24 Rx release amlodipine 5 mg tablet 5 mg PO BID #180 tabs 08/23/24 08/29/24 Rx ondansetron 8 mg disintegrating 8 mg PO Q8H PRN nausea and 08/23/24 08/29/24 Rx tablet vomiting #30 tabs Exam Narrative Exam Narrative: No acute distress, A&O x4, no neurological focal deficit, unlabored breathing, clear lungs, regular hear ,rate and rhythm PPPX4, abdomen is non-distended soft, left flank tenderness, move all 4 ext. Results Labs 08/29/24 04:00 08/29/24 04:00 Labs: Laboratory Results - last 24 hr 08/29/24 08/29/24 08/29/24 04:00 04:29 05:51 WBC 18.93 H RBC 4.51 Hgb 14.4 Hct 42.1 MCV 93 MCH 31.9 MCHC 34.2 RDW 12.2 Plt Count 253 MPV 9.8 Immature Gran % 0.4 Neutrophils % 84.5 Lymphocytes % 6.7 Monocytes % 7.9 Eosinophils % 0.1 Basophils % 0.4 Nucleated RBC % 0.0 Absolute Neutrophils 16.00 H Absolute Lymphocytes 1.27 Absolute Monocytes 1.50 H Absolute Eosinophils 0.02 Absolute Basophils 0.08 VBG Lactate 3.6 H* 3.6 H* Sodium 139 Potassium 3.1 L Chloride 100 Carbon Dioxide 26.4 Anion Gap 12.6 H BUN 20 H Creatinine 1.2 H Est GFR (CKD-EPI 2020) 51.18 Glucose 171 H Calcium 9.3 Magnesium 1.8 Total Bilirubin 0.7 AST 23 ALT 26 Alkaline Phosphatase 97 Total Protein 7.9 Albumin 4.5 Urine Color Red Urine Clarity Cloudy Urine pH 6.5 Ur Specific [place] 1.015 Urine Protein 100 H Urine Ketones 40 H Urine Blood Large H Urine Nitrite Negative Urine Bilirubin Negative Urine Urobilinogen 0.2 Ur Leukocyte Esterase Small H Urine RBC >50 H Urine WBC Ur Epithelial Cells Not Applicable Urine Crystals Not Applicable Urine Bacteria Not Applicable Urine Mucus Not Applicable Ur Culture Indicated? Yes Urine Glucose 250 H Last Vital Signs Temp 37.1 C 08/29/24 03:59 Pulse 68 08/29/24 09:50 Resp 18 08/29/24 04:56 BP 102/43 L 08/29/24 09:31 Pulse Ox 97 08/29/24 09:50 Time Spent Time spent with Patient: >75 minutes Time was spent: preparing to see the patient(eg.review tests), obtaining and/or reviewing separately otained hiistory, ordering medications,tests, procedures, referring, communicating with other health urgent care technician, indepentently interpreting results, counseling the patient and care coordination
[2024-08-29] MEDS: Ketorolac 30 MG/ML VIAL IVP (10:29)
--- NOTE | 2024-08-29 11:28 | W.PC.ACHO ---
Registration Status: REG ER Primary Language: Preferred Language: ED Information & Data Chief Complaint FlankPain 08/29/24 04:13 Triage Note arrives via POV from home, 08/29/24 03:55 had stent placed in L kidney on tuesday, N/V started this evening, unable to keep PO pain meds down, some pain with urination. Medical / Surgical History (Last Reviewed 08/27/24 @ 07:48 by Daniela Hathaway RN) COVID (~03/19/24) (Last Reviewed 08/27/24 @ 07:48 by Daniela Hathaway RN) History of esophagogastroduodenoscopy (~12/2023) Most Recent Vital Signs Temperature 37.1 C 08/29/24 03:59 Pulse 60 08/29/24 10:30 Respiratory Rate 18 08/29/24 04:56 Respiratory Effort Normal, Non-Labored 08/29/24 04:56 Respiratory Depth Normal 08/29/24 04:56 Respiratory Pattern Normal 08/29/24 04:56 Blood Pressure 102/43 L 08/29/24 09:31 Blood Pressure Mean 61 08/29/24 09:31 Blood Pressure Position Supine 08/29/24 04:56 Pulse Oximetry 96 08/29/24 10:30 Oxygen Delivery Method Room Air 08/29/24 04:56 Oxygen Flow Rate 0 08/29/24 04:56 Pain Level 8 08/29/24 03:59 Allergies metronidazole (From Metrogel) Adverse Reaction (Verified 08/29/24 04:00) Hives Precautions Isolation Standard precaution 08/29/24 03:58 Active Medications Generic Name Dose Route Start Last Admin Trade Name Freq PRN Reason Stop Dose Admin Iohexol 100 ml 08/29/24 04:15 08/29/24 04:09 Omnipaque 350 Mg/Ml 100 Ml Btl IJ 09/28/24 23:59 75 ml DIRECTED JESSIE Administration Sodium Chloride 0 ml 08/29/24 04:10 08/29/24 04:10 Normal Saline Flush 10 Ml Syr IVP 10 ml PRN PRN Administration Sodium Chloride 50 ml 08/29/24 04:15 08/29/24 04:11 Normal Saline - Diluent 50 Ml Vial IJ 50 ml .FOR DI USE JESSIE Administration IV IV Catheter Type [Right Peripheral IV Antecubital] IV Catheter Gauge [Right 20 Antecubital] Diagnostics 08/29/24 08/29/24 08/29/24 Range/Units 10:35 05:51 04:29 WBC (4.4-10.8) 10^3/uL RBC (3.93-5.22) 10^6/uL Hgb (11.2-15.7) g/dL Hct (36.0-46.0) % MCV (80-95) fL MCH (27.0-33.0) pg MCHC (32.0-36.0) % RDW (11.7-14.6) % Plt Count (130-400) 10^3/uL MPV (8.0-11.0) fL Immature Gran % % Neutrophils % % Lymphocytes % % Monocytes % % Eosinophils % % Basophils % % Nucleated RBC % (0.0-0.3) % Absolute Neutrophils (1.2-6.7) 10^3/uL Absolute Lymphocytes (1.2-3.4) 10^3/uL Absolute Monocytes (0.1-0.8) 10^3/uL Absolute Eosinophils (0.0-0.7) 10^3/uL Absolute Basophils (0.0-0.2) 10^3/uL VBG Lactate Pending 3.6 H* (<or=2.0) mmol/L Sodium (136-145) mmol/L Potassium (3.5-5.1) mmol/L Chloride (98-107) mmol/L Carbon Dioxide (21.0-32.0) mmol/L Anion Gap (3-11) mmol/L BUN (7-18) mg/dL Creatinine (0.55-1.02) mg/dL Est GFR (CKD-EPI 2020) (mL/min/1.73m2) Glucose (74-106) mg/dL Calcium (8.5-10.1) mg/dL Magnesium (1.8-2.4) mg/dL Total Bilirubin (0.2-1.0) mg/dL AST (15-37) U/L ALT (14-59) U/L Alkaline Phosphatase (46-116) U/L Total Protein (6.4-8.2) g/dL Albumin (3.4-5.0) g/dL Urine Color Red (Yellow) Urine Clarity Cloudy (Clear) Urine pH 6.5 (5-8) Ur Specific [place] 1.015 (1.005-1.025) Urine Protein 100 H (Neg-Trace) mg/dL Urine Ketones 40 H (Negative) mg/dL Urine Blood Large H (Negative) Urine Nitrite Negative (Negative) Urine Bilirubin Negative (Negative) Urine Urobilinogen 0.2 (Up to 0.2) mg/dL Ur Leukocyte Esterase Small H (Negative) Urine RBC >50 H (0-2) HPF Urine WBC (0-5) HPF Ur Epithelial Cells Not Applicable Urine Crystals Not Applicable Urine Bacteria Not Applicable Urine Mucus Not Applicable Ur Culture Indicated? Yes Urine Glucose 250 H (Negative) mg/dL 08/29/24 Range/Units 04:00 WBC 18.93 H (4.4-10.8) 10^3/uL RBC 4.51 (3.93-5.22) 10^6/uL Hgb 14.4 (11.2-15.7) g/dL Hct 42.1 (36.0-46.0) % MCV 93 (80-95) fL MCH 31.9 (27.0-33.0) pg MCHC 34.2 (32.0-36.0) % RDW 12.2 (11.7-14.6) % Plt Count 253 (130-400) 10^3/uL MPV 9.8 (8.0-11.0) fL Immature Gran % 0.4 % Neutrophils % 84.5 % Lymphocytes % 6.7 % Monocytes % 7.9 % Eosinophils % 0.1 % Basophils % 0.4 % Nucleated RBC % 0.0 (0.0-0.3) % Absolute Neutrophils 16.00 H (1.2-6.7) 10^3/uL Absolute Lymphocytes 1.27 (1.2-3.4) 10^3/uL Absolute Monocytes 1.50 H (0.1-0.8) 10^3/uL Absolute Eosinophils 0.02 (0.0-0.7) 10^3/uL Absolute Basophils 0.08 (0.0-0.2) 10^3/uL VBG Lactate 3.6 H* (<or=2.0) mmol/L Sodium 139 (136-145) mmol/L Potassium 3.1 L (3.5-5.1) mmol/L Chloride 100 (98-107) mmol/L Carbon Dioxide 26.4 (21.0-32.0) mmol/L Anion Gap 12.6 H (3-11) mmol/L BUN 20 H (7-18) mg/dL Creatinine 1.2 H (0.55-1.02) mg/dL Est GFR (CKD-EPI 2020) 51.18 (mL/min/1.73m2) Glucose 171 H (74-106) mg/dL Calcium 9.3 (8.5-10.1) mg/dL Magnesium 1.8 (1.8-2.4) mg/dL Total Bilirubin 0.7 (0.2-1.0) mg/dL AST 23 (15-37) U/L ALT 26 (14-59) U/L Alkaline Phosphatase 97 (46-116) U/L Total Protein 7.9 (6.4-8.2) g/dL Albumin 4.5 (3.4-5.0) g/dL Urine Color (Yellow) Urine Clarity (Clear) Urine pH (5-8) Ur Specific [place] (1.005-1.025) Urine Protein (Neg-Trace) mg/dL Urine Ketones (Negative) mg/dL Urine Blood (Negative) Urine Nitrite (Negative) Urine Bilirubin (Negative) Urine Urobilinogen (Up to 0.2) mg/dL Ur Leukocyte Esterase (Negative) Urine RBC (0-2) HPF Urine WBC (0-5) HPF Ur Epithelial Cells Urine Crystals Urine Bacteria Urine Mucus Ur Culture Indicated? Urine Glucose (Negative) mg/dL 08/29/24 04:29 Urine Culture - Pending Urine - Reflex from Ua 08/29/24 04:44 Blood Culture - Pending Blood 08/29/24 04:35 Blood Culture - Pending Blood Intake and Output - 24 Hour Total 08/29/24 03:52 thru 08/29/24 06:00 Intake Total 1450 Balance 1450 Weight 58.513 kg Intake: IV 1450 Falls Risk Assessment History of Falls No History 08/29/24 03:59 Contributing Factors No Factors 08/29/24 03:59 Ambulatory Aids Independent 08/29/24 03:59 Tubes/Lines W/no contributing factors 08/29/24 03:59 Gait Evaluation No gait disturbance 08/29/24 03:59 Cognition No cognitive impairment 08/29/24 03:59 Fall Total Score 10 07/09/25 03:59 Level of Risk Standard/Low Risk 08/29/24 03:59 v v v v v v v v v Sending and/or Receiving Nurses: Please use comment section below to note any information pertinent to the patient hand-off not included above. Information / Comments: paged at [phone], report called [id number]. Cystoscopy w/ left stent placement on Mon. 20 G R AC. Report received from: Karin Moraes ED RN
[2024-08-29] MEDS: Lactated Ringers 1,000 ML 100 ML IV (12:26)
[2024-08-29] MEDS: CEFEPIME 2 GM in Normal Saline 100 ML IVPB ×2 (15:03→22:32)
[2024-08-29] MEDS: VANCOMYCIN/WATER (PEG) 1 GM/200 ML BAG IVPB (17:11)
[2024-08-30] MEDS: Lactated Ringers 1,000 ML 100 ML IV (03:39)
[2024-08-30 04:30] VITALS: BP 148/76; PULSE 63; RESP 18; TEMP 36.8; O2SAT 96
[2024-08-30] MEDS: ACETAMINOPHEN 1,000 MG/100 ML BAG 400 MG IVPB (04:32)
[2024-08-30] MEDS: VANCOMYCIN/WATER (PEG) 1 GM/200 ML BAG IVPB (04:33)
[2024-08-30 08:00] VITALS: BP 157/72; PULSE 63; RESP 16; TEMP 36.8; O2SAT 98
[2024-08-30] MEDS: CEFEPIME 2 GM in Normal Saline 100 ML IVPB (08:15)
[2024-08-30 11:01] LABS: Vancomycin, Random 46.4 ug/mL
--- NOTE | 2024-08-30 12:01 | CMDISCH_ITS ---
Date of service: 08/30/24 Time of Service: 12:02 LACE Index Scoring Tool Questions: Length of Stay (in days): 1 Was the patient admitted via the E.D.?: Yes E.D. Visits: 2 Answers: Total Score: 6 Risk of Readmission: Low Risk Care Management Discharge Plan Reason for Hospitalization: Severe sepsis, UTI, Nephrolithiasis Discharge Plan: Anticipate, Marisa will be discharged home with no new services, today. She will follow up with her community providers, surgical, and discharge plan of care. She will transport via private vehicle by her . Patient/Family Education Needs: Review discharge instructions, activity, limitat ions, and plan of care. Discuss Ask Me Three.
[2024-08-30 13:44] VITALS: BP 167/72; PULSE 62; RESP 16; TEMP 36.2; O2SAT 97
[2024-08-30] MEDS: Acetaminophen 500 MG TAB 1000 MG PO (14:01)
[2024-08-30 15:21] LABS: Abs Immature Grans 0.04 10^3/uL (0.0-0.06); HCT 37.8 % (36.0-46.0); HGB 12.9 g/dL (11.2-15.7); Immature Grans % 0.4 %; MCH 31.7 pg (27.0-33.0); MCHC 34.1 % (32.0-36.0); MCV 93 fL (80-95); MPV 9.6 fL (8.0-11.0); Platelet Count 205 10^3/uL (130-400); RBC 4.07 10^6/uL (3.93-5.22); RDW 12.1 % (11.7-14.6); RDW-SD 41.4 fL; WBC 9.36 10^3/uL (4.4-10.8)
[2024-08-30 15:44] LABS: Anion Gap 10.6 mmol/L (3-11); BUN 11 mg/dL (7-18); CO2 25.4 mmol/L (21.0-32.0); Calcium 8.9 mg/dL (8.5-10.1); Chloride 104 mmol/L (98-107); Estimated GFR 101.42 (mL/min/1.73m2); Glucose 98 mg/dL (74-106); Potassium 3.5 mmol/L (3.5-5.1); Sodium 140 mmol/L (136-145)
--- NOTE | 2024-08-30 15:45 | W.PM.DS.N ---
Date of service: 08/30/24 Time of Service: 15:46 DS: Diagnosis Discharge Diagnosis (1) UTI (urinary tract infection): Status: Acute (2) Hydroureteronephrosis: Status: Acute (3) VALERIE (acute kidney injury): Status: Acute (4) Nausea & vomiting: Status: Acute (5) Acute left flank pain: Status: Acute (6) Pain management: Status: Acute (7) On deep vein thrombosis (DVT) prophylaxis: Status: Acute (8) Discharge planning issues: Status: Acute Discharge Plan Disposition Patient Disposition: Home Condition: Improving Discharge Details Reason For Visit: Severe Sepsis, UTI, Nephrolithiasis Admit Date/Time: 08/29/24 10:35 Admit Provider: Jakob Dimas Attending Provider: Jakob Dimas Primary Care Provider: Brenda Estrada Hospital Course Hospital Course: This 64 yo female patient with a past medical history of HNT, dyspahagia, GERD, left renal mass, UTI presented to the ED on 08/29/24 with complaint of left flank pain POD #2 for left ureteral stent placement. Work-up in the ED was positive for leukocytosis at 18, potassium at 3.1, Cr at 1.2 with BUN at 20. [facility] [place] urology consultation inthe ED w/o recommendations for emergent urologic intervention provided that stent is appropriately placed. As per [facility] documentation stent was situated with proximal end in renal pelvis and distal end in bladder.; obstruction by clot not ruled out; The patient was admitted to the medical surgical floor by the hospitalist service for observation for pain control and labs in AM. In the ED the patient received Linezolid and Zosyn. On admission, the patient was treated with cefepime and IV vancomycin , IVF, antiemetic. Blood and urine cultures were negative. The patient clinically improved, tolerating enteral intake and verbalizing adequate pain control. Renal US : Hydronephrosis: [id number] left hydronephrosis. The renal pelvis appears somewhat echogenic which could represent pyonephrosis. Pigtail of ureteral stent noted in renal pelvis. urology consult completed with recommenadation for patient discharge to home. A short course of Levaquin will be ordered. Follow up with urology will be arranged as per discussion with Dr. Forrester. Follow-up with PCP within 7 days of discharge please. Discussed with Dr. [place] Home Meds and New Rx's Prescriptions: New polyethylene glycol 3350 17 gram Powder In Packet 17 g PO DAILY PRN PRN (Reason: Constipation) Qty: 14 0RF levofloxacin 750 mg tablet 750 mg PO DAILY Qty: 4 0RF acetaminophen 500 mg Tablet 1,000 mg PO Q8H Qty: 20 0RF Rx Instructions: For 3 days then only as needed 3 times per day Continued losartan 100 mg tablet 100 mg PO DAILY Qty: 90 3RF naproxen 250 mg tablet 250 mg PO BID PRN amlodipine 5 mg tablet 5 mg PO BID Qty: 180 0RF ondansetron 8 mg tablet,disintegrating 8 mg PO Q8H PRN (Reason: nausea and vomiting) Qty: 30 0RF omeprazole 20 mg capsule,delayed release(DR/EC) 20 mg PO BID PRN (Reason: reflux) Qty: 60 1RF estradiol 0.01 % (0.1 mg/gram) cream 1 g vaginal .COMPLEX Qty: 42.5 6RF Rx Instructions: 1 g vaginal daily for 2 weeks then twice weekly; clobetasol 0.05 % ointment 1 applic topical BID Qty: 45 6RF Rx Instructions: tiny amount to vulva twice daily x1 month,daily for 1 month then twice weekly Discharge Instructions Referrals: Brenda Estrada, [employer] DIRECTOR [Primary Care Provider, Medicine] Referral Note: Follow up with PCP within 7 days of discharge please Activity:: Activity as Tolerated Equipment/Supplies:: No Equipment Needed Diet:: heart healthy Discharge Orders Discharge Orders: Discharge Order (Routine); Ordered 08/30/24 Ordered By: Marisa Lubin DS: Summary Time Spent with Patient providing and/or coordinating discharge services: Greater than 30 minutes Status at Discharge Functional status at discharge: independent ambulation Overall status at discharge: patient is progressing back to baseline Mental Status: mental status grossly normal Speech and Movement: speech and movement normal Mood: congruent mood Affect: normal affect Exam Narrative Exam Narrative: No acute distress, A&O x4, no neurological focal deficit, unlabored breathing, clear lungs, regular hear ,rate and rhythm PPPX4, abdomen is non-distended soft, No acute L CVA tenderness but remain sensitive, move all 4 ext. Psych Mental Status: mental status grossly normal Speech and Movement: speech and movement normal Mood: congruent mood Affect: normal affect DS: Data Vitals/I&O Vitals and I&O: Vital Signs Temperature 36.2 C L 08/30/24 13:44 Temperature Source Temporal Artery Scan 08/30/24 13:44 Pulse 62 08/30/24 13:44 Pulse Rhythm Regular 08/29/24 11:43 Respiratory Rate 16 08/30/24 13:44 Respiratory Effort Normal, Non-Labored 08/29/24 11:43 Respiratory Depth Normal 08/29/24 11:43 Respiratory Pattern Normal 08/29/24 11:43 Blood Pressure 167/72 H 08/30/24 13:44 Blood Pressure Mean 103 08/30/24 13:44 Blood Pressure Position Supine 08/29/24 04:56 Pulse Oximetry 97 08/30/24 13:44 Oxygen Delivery Method Room Air 08/30/24 13:44 Oxygen Flow Rate 0 08/30/24 13:44 Pain Level 4 08/30/24 14:01 Intake & Output 08/29/24 08/30/24 08/30/24 23:59 11:59 23:59 Intake Total 1100 / 2550 1760 / 1760 Output Total 954 / 954 550 / 850 300 / 850 Balance 146 / 1596 1210 / 910 -300 / 910 Intake: IV 610 / 2060 1410 / 1410 Oral 490 / 490 350 / 350 Output: Urine 954 / 954 550 / 850 300 / 850 Other: Urine Color Arnold Line Yellow Arnold Line Urine Appearance Cloudy Clear Urine Odor Normal Normal Comment Pt refused faust at this time, provider is aware and will do strict I&Os instead. Patient's urine in collection hat displayed with hematuria, a pink color overall, but a suspension of dark red blood that ran in a streak across the center. Stool Size Moderate Stool Characteristics Liquid Data Completed and Pending Labs on day of discharge: Labs from last 24 hours 08/30/24 08/30/24 15:10 06:09 WBC 9.36 RBC 4.07 Hgb 12.9 Hct 37.8 MCV 93 MCH 31.7 MCHC 34.1 RDW 12.1 Plt Count 205 MPV 9.6 Immature Gran % 0.4 Neutrophils % 69.4 Lymphocytes % 17.7 Monocytes % 11.2 Eosinophils % 0.6 Basophils % 0.7 Nucleated RBC % 0.0 Absolute Neutrophils 6.48 Absolute Lymphocytes 1.66 Absolute Monocytes 1.05 H Absolute Eosinophils 0.06 Absolute Basophils 0.07 Sodium 140 Potassium 3.5 Chloride 104 Carbon Dioxide 25.4 Anion Gap 10.6 BUN 11 Creatinine 0.6 Est GFR (CKD-EPI 2020) 101.42 Glucose 98 Calcium 8.9 Random Vancomycin 46.4 Preliminary micro results at discharge 08/29/24 04:29 Urine - Reflex from Ua Urine Culture - Preliminary 08/29/24 04:44 Blood Blood Culture - Preliminary NO GROWTH 24 HOURS 08/29/24 04:35 Blood Blood Culture - Preliminary NO GROWTH 24 HOURS PFSH All Active Problems (Updated 08/29/24 @ 19:17 by Marisa Lubin APRN) VALERIE (acute kidney injury) (Acute) Discharge planning issues (Acute) Pain management (Acute) Nausea & vomiting (Acute) On deep vein thrombosis (DVT) prophylaxis (Acute) Hydroureteronephrosis (Acute) Severe sepsis (Acute) Acute left flank pain (Acute) Post surgical complication (Acute) Leukocytosis (Acute) Hydronephrosis (Acute) Abnormal urine cytology (Acute) Bradycardia with 31-40 beats per minute (Acute) Flank pain (Acute) Hematuria (Acute) HTN (hypertension) (Chronic) Dysphagia (Acute) Acid reflux (Chronic) Systolic murmur (Acute) Dysuria (Acute) UTI (urinary tract infection) (Acute) . EColi. Rx Nitrofurantoin Rib pain on left side (Acute) Vaginal dryness (Acute) 05/23/19. Unclear if sx 2/2 LS or primary menopausal vaginal atrophy 09/2020. Rx for vaginal E2 cream. History of female sterilization (Chronic) Lichen sclerosus et atrophicus of the vulva (Acute) 05/2019. Rx with clobetasol. Medical History COVID (~03/19/24) Surgical History History of esophagogastroduodenoscopy (~12/2023) Family History Uncle Cancer Aunt Cancer Paternal Grandfather Hypertension Social History Smoking/Tobacco Use Status: Never Second Hand Exposure: No Smoking risk assessment performed?: Yes Alcohol Intake: former Details: Monthly or less Drug use: Daily Substance use type: marijuana Counseling given: No Adopted: No Caregiver/Support person: No Foster care: No Household members: spouse, children and other Details: Lakesha. 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 Pets and animals: Yes (1) Pets and animals: dog(s) Sexually active: Yes Do you think of yourself as: straight/heterosexual Current gender identity: female What is your relationship status?: How often do you talk on the phone with friends or family?: three or more times per week How often do you get together with friends or relatives?: twice per week Do you belong to any clubs or organized social groups?: no Panel score (0-1 are the most socially isolated patients): 2 What type of physical activity do you participate in: walking Duration: 30-45 minutes/day Frequency: 5-6 times per week Debbie/Voodoo: None Special debbie needs: No Seatbelt use: always Drive intox or ride w/intox oil truck driver: No Working smoke detector in home: Yes Fire extinguisher in home: Yes Carbon monox detector in home: Yes Do you feel safe at home: Yes Do you feel safe in your relationship?: Yes Female Reproductive History Menstrual control method: permanent sterilization Menopause type: natural Date of menopause: 05/22/17 History History 2 Para 2 Hx # Term Pregnancies Multiple births Hx # Pregnancies Ectopic pregnancies AB induced Hx Number of Living Children AB spontaneous Time Spent with Patient Time Spent with Patient: 70-84 minutes4 Time was spent: preparing to see the patient(eg.review tests), obtaining and/or reviewing separately otained hiistory, ordering medications,tests, procedures, referring, communicating with other health palliative care nurse, indepentently interpreting results, counseling the patient and care coordination
--- NOTE | 2024-08-30 16:13 | UCONE_ITS ---
Date of service: 08/30/24 Time of Service: 16:13 Assessment and Plan Assessment and plan (1) Flank pain: Status: Acute (2) Leukocytosis: Status: Acute Assessment and plan: Clinically, she has improved. I would suspect that biopsying her left renal mass released some bacteria causing her sepsis. I did review her selective cytologies with the patient. The cytologies from each of the collecting systems does not show high-grade urothelial cell carcinoma. These findings were reinforced my initial impression that she will have a low-grade, noninvasive lesion in the kidney and she may be a candidate for laser ablation of the tumor rather than require a full-fledged nephro ureterectomy. I would continue with oral antibiotics at the time of discharge. She already has a followup appt with me to review her surgical pathology, so no additional appointments should be needed. History of Present Illness History of Present Illness Chief Complaint: Left flank pain Narrative: This is a 64-year-old woman who was previously seen for an episode of gross hematuria. She had a CT scan with IV contrast (no delayed films) that showed a renal cyst but no solid renal masses. We then did a cystoscopy and bilateral retrograde pyelogram. The lower pole of the left kidney did not fill well or draining well on retrograde pyelogram. I took a urine cytology and the cytology was abnormal. Last week, I took her back to the operating room where I took selective cytologies from each of the kidneys. I ran a ureteroscope up to the left kidney and visualized the papillary tumor in the lower pole calyx. The tumor extended out to the renal pelvis. I biopsied the tumor and placed the ureteral stent. The patient went home on the day of the procedure. She returned to the emergency department about 36 hours later with left flank pain nausea and vomiting. On evaluation, she had leukocytosis. Her stent appeared to be in adequate position but she did have some hydronephrosis. Interestingly, on her noncontrast CT, the directly visualized lower pole lesion was still not seen. She was admitted and started on hydration and antibiotics. Today, she feels much better with minimal flank pain. She has no nausea or vomiting. She is not having any fevers or chills Review of Systems Constitutional Constitutional: Denies chills, Reports fatigue and Denies fever(s) Cardiovascular Cardiovascular: Denies chest pain, Denies irregular heart rhythm and Denies dyspnea Respiratory Respiratory: Denies cough and Denies dyspnea Endocrine Endocrine: Reports fatigue PFSH All Active Problems (Updated 08/31/24 @ 00:03 by HARPREET BLACK) Hydroureteronephrosis (Acute) Severe sepsis (Acute) Acute left flank pain (Acute) Post surgical complication (Acute) Leukocytosis (Acute) Hydronephrosis (Acute) Abnormal urine cytology (Acute) Bradycardia with 31-40 beats per minute (Acute) Flank pain (Acute) Hematuria (Acute) HTN (hypertension) (Chronic) Dysphagia (Acute) Acid reflux (Chronic) Systolic murmur (Acute) Dysuria (Acute) Rib pain on left side (Acute) Vaginal dryness (Acute) 05/23/19. Unclear if sx 2/2 LS or primary menopausal vaginal atrophy 09/2020. Rx for vaginal E2 cream. History of female sterilization (Chronic) Lichen sclerosus et atrophicus of the vulva (Acute) 05/2019. Rx with clobetasol. Medical History COVID (~03/19/24) Surgical History History of esophagogastroduodenoscopy (~12/2023) Family History Uncle Cancer Aunt Cancer Paternal Grandfather Hypertension Social History Smoking/Tobacco Use Status: Never Second Hand Exposure: No Smoking risk assessment performed?: Yes Alcohol Intake: former Details: Monthly or less Drug use: Daily Substance use type: marijuana Counseling given: No Adopted: No Caregiver/Support person: No Foster care: No Household members: spouse, children and other Details: Lakesha. 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[employer] Pets and animals: Yes (1) Pets and animals: dog(s) Sexually active: Yes Do you think of yourself as: straight/heterosexual Current gender identity: female What is your relationship status?: How often do you talk on the phone with friends or family?: three or more times per week How often do you get together with friends or relatives?: twice per week Do you belong to any clubs or organized social groups?: no Panel score (0-1 are the most socially isolated patients): 2 What type of physical activity do you participate in: walking Duration: 30-45 minutes/day Frequency: 5-6 times per week Debbie/Baptist: None Special debbie needs: No Seatbelt use: always Drive intox or ride w/intox driver material handler: No Working smoke detector in home: Yes Fire extinguisher in home: Yes Carbon monox detector in home: Yes Do you feel safe at home: Yes Do you feel safe in your relationship?: Yes Female Reproductive History Menstrual control method: permanent sterilization Menopause type: natural Date of menopause: 05/22/17 History History 2 2 Para 2 Hx # Term Pregnancies Multiple births Hx # Pregnancies Ectopic pregnancies AB induced Hx Number of Living Children AB spontaneous Exam Narrative Exam Narrative: She appears comfortable Her vital signs are documented elsewhere Her chest wall motion is normal. She is not short of breath at rest. Her abdomen is soft with no guarding or rebound tenderness She is awake and alert I reviewed her CT scan. Her stent is indeed in the proper location. Her urine and blood cultures are still pending but the preliminary reports indicate no bacterial growth on her blood cultures Results Last Vital Signs Temp 36.2 C L 08/30/24 13:44 Pulse 62 08/30/24 13:44 Resp 16 08/30/24 13:44 BP 167/72 H 08/30/24 13:44 Pulse Ox 97 08/30/24 13:44 Labs 08/30/24 15:10 08/30/24 15:10 Labs: Laboratory Results - last 24 hr 08/30/24 08/30/24 06:09 15:10 WBC 9.36 RBC 4.07 Hgb 12.9 Hct 37.8 MCV 93 MCH 31.7 MCHC 34.1 RDW 12.1 Plt Count 205 MPV 9.6 Immature Gran % 0.4 Neutrophils % 69.4 Lymphocytes % 17.7 Monocytes % 11.2 Eosinophils % 0.6 Basophils % 0.7 Nucleated RBC % 0.0 Absolute Neutrophils 6.48 Absolute Lymphocytes 1.66 Absolute Monocytes 1.05 H Absolute Eosinophils 0.06 Absolute Basophils 0.07 Sodium 140 Potassium 3.5 Chloride 104 Carbon Dioxide 25.4 Anion Gap 10.6 BUN 11 Creatinine 0.6 Est GFR (CKD-EPI 2020) 101.42 Glucose 98 Calcium 8.9 Random Vancomycin 46.4
[2024-08-30] MEDS: levoFLOXacin 500 MG, levoFLOXacin 250 MG 750 MG PO (16:40)
== END 2024-08-30 16:51 | disposition home or self-care (01) | DRG 683 ==
LOC: ER 07:52 → MS 12:41
PROVIDERS: Admitting Provider Family Medicine; Emergency Provider Student in an Organized Health Care Education/Training Program; PCP Nurse Practitioner; Responsible Provider Nurse Practitioner Acute Care; Visit Provider Family Medicine
DX: N17.9 Acute kidney failure, unspecified (principal); C65.2 Malignant neoplasm of left renal pelvis; N13.6 Pyonephrosis; R11.2 Nausea with vomiting, unspecified; Z79.899 Other long term (current) drug therapy; D72.829 Elevated white blood cell count, unspecified; R10.32 Left lower quadrant pain; Z96.0 Presence of urogenital implants; R31.9 Hematuria, unspecified; R00.1 Bradycardia, unspecified; I10 Essential (primary) hypertension; R13.10 Dysphagia, unspecified; K21.9 Gastro-esophageal reflux disease without esophagitis; F12.90 Cannabis use, unspecified, uncomplicated
CPT/HCPCS: 00123; 36415; 76770; 80048; 80053; 87040; 93005; 96365; 96367; 96368; 96375; 99285; 74177; 80202; 81003; 81015; 83605; 83735; 85025; 87086; 93010; 99223; 99239; J0131; J0692; J1885; J2020; J2405; J2543; J3373; J3490

== ENCOUNTER 2024-09-19 14:43 | Outpatient (RCR) | payer BC, SELFPAY | END 2024-09-20 23:59 | disposition home or self-care (01) | LOC: CARDOPNVT 14:43 | PROVIDERS: PCP Nurse Practitioner; Visit Provider Internal Medicine Cardiovascular Disease | DX: R00.0 Tachycardia, unspecified (principal); R00.2 Palpitations; I49.1 Atrial premature depolarization | CPT/HCPCS: 93225 ==

== ENCOUNTER 2024-09-21 12:23 | Outpatient (RCR) | payer BC, SELFPAY ==
--- NOTE | 2024-09-27 10:30 | W.HOLTRPT ---
Date of service: 09/27/24 Time of Service: 10:30 Holter Monitor Report Referring Provider:: Trey Pérez Indications:: Tachycardia Holter Monitor Note: This is a 48-hour Holter monitor. Rhythm throughout was sinus with an average heart rate of 70. Minimum was 43, maximum 128. A total of 53 premature ventricular contractions were recorded. There were 39 premature atrial contractions. There was no atrial fibrillation, no SVT, no pauses greater than 3 seconds, no high-grade AV block. Reported symptoms correlated to sinus rhythm
== END 2024-10-21 23:59 | disposition home or self-care (01) ==
LOC: CARDOPNVT 12:23
PROVIDERS: PCP Nurse Practitioner; Visit Provider Internal Medicine Cardiovascular Disease
DX: R00.2 Palpitations (principal); I49.3 Ventricular premature depolarization; I49.1 Atrial premature depolarization
CPT/HCPCS: 93226

== ENCOUNTER 2024-10-02 15:04 | Outpatient (REF) | payer BC, SELFPAY ==
[2024-10-02 17:36] LABS: Glucose Negative (Negative)
[2024-10-02 17:46] LABS: RBC 20-50 HPF (0-2)
== END 2024-10-02 15:05 | disposition home or self-care (01) ==
LOC: LBN 15:04
PROVIDERS: PCP Nurse Practitioner; Visit Provider Urology
DX: R31.0 Gross hematuria (principal)
CPT/HCPCS: 81003; 81015; 87086

== ENCOUNTER 2024-10-15 08:51 | Outpatient (CLI) | payer BC, SELFPAY ==
--- NOTE | 2024-10-15 | DI.CT_ITS ---
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 TECHNIQUE: Multi planar reconstructions were performed. CONTRAST MATERIAL: Intravenous Omnipaque 350; 75 cc Oral contrast: None COMPARISON: CT CT ABDOMEN PELVIS WO/W from 10/15/2024 FINDINGS: CHEST: LUNGS: There are no significant lung nodules. There are no infiltrates nor pleural effusions. No findings in trachea and mainstem bronchi. No bronchiectasis. MEDIASTINUM: There is no hilar nor mediastinal adenopathy. Visualized thyroid unremarkable. CARDIAC: Heart size is normal. There is no pericardial effusion.Caliber of the thoracic aorta is within normal limits. No evidence of dissection. VISUALIZED UPPER ABDOMEN:There are no significant adrenal masses. OSSEOUS: No significant osseous lesions.No fractures.. IMPRESSION: 1. No evidence of metastatic disease nor other significant findings in the chest. RADIATION DOSE DELIVERED: 1,278.03mGy.cm Total DLP DATA REPOSITORY: All CT scans at this facility are submitted to the National Radiology Data Registry (NRDR) Dose Index Registry (DIR) with the [employer] (ACR). RADIATION OPTIMIZATION: All CT scans at this facility use at least one of these dose optimization techniques: automated exposure control; mA and/or kV adjustment per patient size (includes targeted exams where dose is matched to clinical indication); or iterative reconstruction.
--- NOTE | 2024-10-15 | DI.CT_ITS ---
Exam(s) CT ABDOMEN PELVIS WO/W EXAM: CT ABDOMEN PELVIS WO/W CLINICAL HISTORY: Urothelial carcinoma, C68.9; check for mets and rt upper tract. TECHNIQUE: Imaging Protocol: Axial computed tomography images with coronal and sagittal reformatted images were created and reviewed CONTRAST MATERIAL: Intravenous: Omnipaque-350 75cc Oral: None COMPARISON: CT CT ABDOMEN PELVIS W from 07/05/[address] ABDOMEN PELVIS W from 08/29/2024 FINDINGS: VISUALIZED LUNG BASES: No nodules nor pleural effusions evident. ABDOMEN: There has been interval removal of the left ureteral stent LIVER: There are no focal hepatic lesions evident. No dilated intrahepatic ducts. GALLBLADDER/BILIARY: No obvious gallbladder pathology. CBD is not dilated. PANCREAS: No evidence of pancreatic mass nor dilatation of the pancreatic duct. SPLEEN: Spleen is not enlarged. No obvious intrasplenic lesions. Splenic and portal veins are patent. ADRENALS: No adrenal masses. KIDNEYS:The left ureteral stent is been removed. No hydronephrosis nor hydroureter evident. There is a filling defect in the left renal pelvis which may be neoplastic. Again noted is a cyst in the inferior pole the left kidney which measures 5 x 4.4 cm and does not require further workup. No cysts nor solid lesions seen in the opposite-right kidney. Both ureters exhibit normal course and caliber. URINARY BLADDER: No significant focal findings ABDOMINAL AORTA: Abdominal aorta is not enlarged. LYMPH NODES:There is no retroperitoneal nor paraaortic adenopathy. ABDOMINAL WALL: No evidence of significant anterior abdominal wall nor inguinal hernia. GI: There is no evidence of bowel obstruction, free air, nor abscess. PELVIS: GI: No evidence of appendicitis.No evidence of sigmoid diverticulitis. LYMPH NODES: There is no intrapelvic nor inguinal adenopathy. REPRODUCTIVE: Uterus and adnexal regions appear age-appropriate. No ovarian nor extra ovarian adnexal masses and no free fluid in the pelvis. URINARY BLADDER: No calculi nor obvious masses evident OSSEOUS: No fractures and no significant osseous lesions. Multilevel disc space narrowing in the mid-lower lumbar spine. No listhesis. No pars defects evident. IMPRESSION: 1. Compared to the prior CT scan of 07/05/[address]24 and the most recent CT scan of 08/29/2024 the left ureteral stent has been removed. There is a prominent neoplastic appearing mass in the left renal pelvis which is not completely obstructive. No other findings of significance in the kidneys and urinary bladder. Ureters are not dilated. RADIATION DOSE DELIVERED: 1,278.03mGy.cm Total DLP DATA REPOSITORY: All CT scans at this facility are submitted to the National Radiology Data Registry (NRDR) Dose Index Registry (DIR) with the [employer] (ACR). RADIATION OPTIMIZATION: All CT scans at this facility use at least one of these dose optimization techniques: automated exposure control; mA and/or kV adjustment per patient size (includes targeted exams where dose is matched to clinical indication); or iterative reconstruction.
[2024-10-15 14:55] LABS: Estimated GFR 101.42 (mL/min/1.73m2)
[2024-10-15] MEDS: Normal Saline - Diluent 50 ML VIAL IJ (15:22)
[2024-10-15] MEDS: Omnipaque 350 MG/ML 100 ML BTL IJ (15:23)
[2024-10-15] MEDS: Normal Saline Flush 10 ML SYR IVP (15:31)
== END 2024-10-15 09:11 ==
LOC: DI 08:52
PROVIDERS: PCP Nurse Practitioner; Visit Provider Urology
DX: C68.9 Malignant neoplasm of urinary organ, unspecified (principal)
CPT/HCPCS: 36415; 71260; 74178; 82565; J3490

== ENCOUNTER 2024-10-25 09:01 | Outpatient (CLI) | payer BC, SELFPAY ==
--- NOTE | 2024-10-25 09:00 | RT.EKG_ITS ---
APPROVED REPORT Exam: Resting ECG Reason for Exam: preop testing Patient Location: O HR:54 bpm ECG Measurements Heart Rate 54 AXIS SD 130 P 61 QRSd 92 QRS 59 QT 455 T 60 QTc 432 Conclusion Sinus rhythm...normal P axis, V-rate 50- 99 Normal Electrocardiogram
== END 2024-10-25 09:02 | disposition home or self-care (01) ==
LOC: DI.KIM 09:02
PROVIDERS: PCP Nurse Practitioner; Visit Provider Family Medicine
DX: Z01.818 Encounter for other preprocedural examination (principal)
CPT/HCPCS: 93010